=== PATIENT | female | born 1960 | race Two or more races ===

== ENCOUNTER 2023-07-02 17:07 | Emergency (ER) | payer OTHER, SELFPAY ==
--- NOTE | ~2023-07-02 | CT_ITS ---
CT head/brain wo IV con CLINICAL INFORMATION: Reason for Exam left facial numbness COMPARISON: No prior CT scan available for comparison. TECHNIQUE: Department standard protocol. This CT examination was performed using dose optimization techniques as appropriate, variously including the following: *Automated exposure control *Adjustment of mA and/or kV according to patient size (this includes techniques or standardized protocols for targeted exams where dose is matched to indication/reason for exam; i.e. extremities or head) *Use of iterative reconstruction technique DLP: 616 mGy-cm FINDINGS: CEREBRAL HEMISPHERES: There is no evidence of intra-axial or extra-axial mass, hemorrhage or acute infarct. BRAIN PARENCHYMA: Normal borrero-white matter differentiation. SUBDURAL SPACE: No bleed. BASAL GANGLIA AND PINEAL GLAND: Unremarkable VENTRICLES: Symmetric and normal in size. CEREBELLUM AND BRAINSTEM: No space-occupying mass, hemorrhage or acute infarct. CEREBELLOPONTINE ANGLES: No lesion found. ORBITS: No intraorbital mass. VESSELS: Unremarkable SKULL BASE: Unremarkable INCLUDED SINUSES AT SKULL BASE: Clear SKULL AND SKIN: No fracture or bone lesion found. CT/CT head/brain wo IV con IMPRESSION: No CT evidence of intracranial space-occupying mass, bleed or infarct. Normal CT scan does not rule out the possibility of hyperacute infarct in the first 12 hours. If patient symptoms persist may consider correlation with MRI, which is more sensitive for early acute infarct.
--- NOTE | ~2023-07-02 | XR_ITS ---
EXAMINATION: XR CHEST CLINICAL INFORMATION: Chest pain. COMPARISON: None available. TECHNIQUE: 2 views of the chest were obtained. FINDINGS: Normal heart size. Mild platelike opacities in the left lower lobe. No pleural effusion or pneumothorax. Calcific body adjacent to the greater tuberosity of the right humerus. No acute osseous findings. Mild thoracic spondylosis. Scattered atherosclerotic disease. XR/XR chest 2V IMPRESSION: 1. Subtle platelike opacities in the left lower lobe favoring to represent subsegmental atelectasis or scarring. 2. Calcific bodies adjacent to the greater tuberosity of the right humerus suggesting calcific tendinosis.
--- NOTE | 2023-07-02 17:14 | ECG_ITS ---
Test Reason : numbness Blood Pressure : / mmHG Vent. Rate : 090 BPM Atrial Rate : 090 BPM P-R Int : 132 ms QRS Dur : 084 ms QT Int : 362 ms P-R-T Axes : 045 006 028 degrees QTc Int : 442 ms Normal sinus rhythm Normal ECG No previous ECGs available Referred By: Delores Garcia Electronically Signed By:WALLACE BEY MD
[2023-07-02 17:19] VITALS: BP 142/75; PULSE 89; RESP 18; TEMP 36.2; O2SAT 94; BMI 34.7
--- NOTE | 2023-07-02 17:20 | ED.GENADULT ---
HPI - General Adult General Chief complaint: Chest Pain Stated complaint: CP, L sided body numbness Time Seen by Provider: 07/02/23 17:57 Source: patient, family, RN notes reviewed and slot shift manager Mode of arrival: ambulatory Limitations: language barrier History of Present Illness HPI narrative: 64-year-old female past medical history significant for diabetes, hypertension presents for evaluation of chest pain. Patient states that while she was heating up her food around 330 this afternoon, she felt ?chest pressure. She states that the left side of her body went ?numb. ? She states the symptoms lasted for about an hour and a half until 5:00 p.m.. She states she also felt dizzy. She denied any weakness or difficulty speaking Currently she is not experiencing any symptoms but feels ?weak. ? Related Data Allergies Allergy/AdvReac Type Severity Reaction Status Date / Time acetaminophen [From Percocet] Allergy Unknown Verified 07/02/23 17:31 aspirin [ASA] Allergy Unknown Verified 07/02/23 17:31 oxycodone [From Percocet] Allergy Unknown Verified 07/02/23 17:31 Penicillins [PCN] Allergy Unknown Verified 07/02/23 17:31 tramadol Allergy Unknown Verified 07/02/23 17:31 Review of Systems Constitutional: Constitutional: Denies chills and Denies fever(s) Eyes: Eyes: Denies blurry vision ENT: Reports dizziness and Denies sore throat Cardiovascular: Cardiovascular: Reports chest pain and Denies dyspnea Respiratory: Respiratory: Denies cough and Denies dyspnea Gastrointestinal: Gastrointestinal: Denies abdominal pain, Denies nausea and Denies vomiting Musculoskeletal: Musculoskeletal: Denies back pain and Reports tingling Integumentary/Breasts: Skin/Breast: Denies rash Neurologic: Reports dizziness, Reports tingling and Reports paresthesias Psychiatric: Psychiatric: Denies anxiety PMFSH Social History Social History Smoked in Last 30 Days: No Use of substances other than those prescribed or required for medical reasons: No Advance Directives: No Advance Directives Information Provided: Yes Physical Exam ED Vital Signs: Vital Signs - 24 hr 07/02/23 17:19 07/02/23 19:39 Temperature 97.1 F 98.3 F Pulse Rate 89 84 Respiratory Rate 18 14 Blood Pressure 142/75 H 129/73 Pulse Oximetry 94 92 Oxygen Delivery Method Room Air Room Air BMI result Body Mass Index 34.7 Const General: healthy appearing, comfortable, no acute distress, alert and awake Nutritional Appearance: well nourished Orientation/consciousness: patient oriented x3 HENMT Head: Yes normocephalic and Yes atraumatic Throat: Yes posterior oropharynx normal Eyes Eyelids: Yes eyelids normal Conjunctivae: conjunctivae normal Sclerae: sclerae normal Corneas: corneas normal Pupils: Equal, round and reactive pupils present EOM: EOMs intact bilaterally Neck Neck: Yes full ROM Resp Effort & Inspection: normal respiratory effort, able to speak in complete sentences, no audible wheezes and not labored Auscultation: clear to auscultation bilaterally Cardio Rate: regular rate Rhythm: regular rhythm GI Inspection: No distended Palpation (GI): Soft to palpation, not firm, nontender, no guarding and not rigid Auscultation: normoactive bowel sounds Skin General skin exam: no rashes or lesions noted and elasticity normal Neuro General: patient oriented x3 Cranial nerves: Yes CN's II-XII intact bilaterally, Yes Equal, round and reactive pupils present and Yes Bilaterally intact EOM present Cognition (Neuro): normal cognition Gait exam (Neuro): Normal gait present Motor exam (neuro): 5/5 motor strength present throughout, Pronator motor function not present and no tremor noted Extrem Other: Moving all extremities well without any obvious deformities NIH Stroke Scale Internal: Initial- Upon Arrival Time: 17:22 Level of Consciousness: Alert Level of Consciousness Questions: Answers both questions correctly Level of Consciousness Commands: Performs both tasks correctly Best Gaze: Normal Visual: No visual loss Facial Palsy: Normal Motor Arm (Right): No drift Motor Arm (Left): No drift Motor Leg (Right): No drift Motor Leg (Left): No drift Limb Ataxia: Absent Sensory: Normal Best Language: No aphasia Dysarthia: Normal Extinction and Inattention: No abnormality Score: 0 Course Course Course Narrative: This is a rapid medical exam: Additional HPI, ROS, PE not included below will be deferred to primary provider. Patient is a 63-year-old Urdu speaking female presenting to the emergency department with complaint of chest pain and L sided facial tingling which began at 3pm today. Denies headache. Reports blurred vision at onset of symptoms but denies any at this time. No focal deficits noted in triage, NIHSS 0. Plan: EKG, CXR, labs, CT head, patient brought directly inside ED Medical Decision Making Medical Decision Making [facility] Narrative: 63-year-old female presents for evaluation of vague symptoms of numbness, chest pain. Plan for EKG, labs to rule out cardiac etiology. Chest x-ray. And a very low suspicion for CVA and she had no neuro deficits. Never had any weakness or difficulty speaking was complaining of mostly numbness. She had an NIH stroke score of 0 Her symptoms have since resolved, this is very consistent with anxiety. Patient's vital signs are currently within normal limits. Her EKG does not appear ischemic. Will get a repeat troponin 4 hours after the onset of her symptoms to effectively rule out ACS. Differential Diagnosis Differential Diagnoses: The differential diagnosis associated with the presentation includes Anxiety Paresthesias Chest pain CVA less likely Orthostasis Admission/Observation Consideration of admission/observation: Escalation of care including admission/observation considered Patient's medical workup largely unremarkable, she without for ACS and I have a low suspicion for CVA. Lab Data [facility] Lab Attestation statement: I reviewed the patient's lab results. No leukocytosis. The patient has a mild anemia not significant to explain her symptoms. Electrolytes within normal limits, renal function normal limits. Troponin undetectable 07/02/23 17:54 07/02/23 17:54 Labs: Lab Results 07/02/23 Range/Units 17:54 WBC 8.6 (4.8-10.8) X10*3/uL RBC 4.49 (4.20-5.50) X10*6/uL Hgb 11.6 L (12.0-16.0) g/dl Hct 35.3 L (37.0-47.0) % MCV 78.6 L (80.0-98.0) fL MCH 25.8 L (27.0-33.0) pg MCHC 32.9 (31.0-35.0) g/dl RDW 17.8 H (11.0-16.0) % Plt Count 318 (160-400) X10*3/uL MPV 9.5 (9.4-12.3) fL Immature Gran % (Auto) 0.4 (0.0-0.4) % Neut % (Auto) 64.5 (45-73) % Lymph % (Auto) 25.7 (20-40) % Irion % (Auto) 7.5 (2-11) % Eos % (Auto) 1.1 (0-4) % Baso % (Auto) 0.8 (0-2) % Lymph # (Auto) 2.2 (1.2-4.9) X10*3/uL Irion # (Auto) 0.6 (0.1-1.2) X10*3/uL Eos # (Auto) 0.1 (0.0-0.4) X10*3/uL Baso # (Auto) 0.1 (0.0-0.2) X10*3/uL Abs Immat Gran (auto) 0.03 (0.00-0.03) X10*3/uL Absolute Neuts (auto) 5.5 (2.0-8.3) x10*3/uL Absolute Nucleated RBC 0.000 (0.0-0.012) X10*3/uL Nucleated RBC % (auto) 0.0 (0.0-0.2) /100WBC PT 11.2 (11.1-13.3) SEC INR 0.9 (0.9-1.1) Sodium 140 (135-145) mmol/L Potassium 4.3 (3.3-5.1) mmol/L Chloride 103 (96-108) mmol/L Carbon Dioxide 23 (22-29) mmol/L Anion Gap 18 (12-20) BUN 16 (9-16) mg/dL Creatinine 1.18 (0.5-1.4) mg/dL Estim Creat Clear Calc 44.6 Estimated GFR 46 Random Glucose 196 H (60-115) mg/dL Calcium 9.8 (8.4-10.2) mg/dL Total Bilirubin 0.8 (0.0-1.0) mg/dL AST 25 (5-31) U/L ALT 19 (0-31) U/L Alkaline Phosphatase 91 (39-117) U/L Troponin I High Sens < 2.7 (<3.5-17.0) ng/L Total Protein 7.7 (6.5-8.0) g/dL Albumin 4.4 (3.5-5.0) g/dL Independent Interpretation I performed an independent interpretation of an: EKG and CT Scan (No intracranial hemorrhage) Interpretation: Normal sinus rhythm with rate of 90 beats per minute. No ST changes Radiology Impression Discussion of test interpretation with radiology: I have reviewed the radiologist's reading. (No CT evidence of intracranial space-occupying mass bleed or infarct) Radiologist Impression: Chest x-ray shows a subtle platelike opacity in the left lower lobe favoring to represent atelectasis Discharge Plan Discharge Clinical Impression: Chest pain Patient Disposition: Still a Patient
[2023-07-02 18:00] LABS: MANUAL DIFF FLAG NO
[2023-07-02 18:04] LABS: Basophils Absolute Auto 0.1 X10*3/uL (0.0-0.2); Basophils Percent Auto 0.8 % (0-2); Eosinophils Absolute Auto 0.1 X10*3/uL (0.0-0.4); Eosinophils Percent Auto 1.1 % (0-4); Hematocrit 35.3 % (37.0-47.0); Hemoglobin 11.6 g/dl (12.0-16.0); Imm Gran Abs Auto 0.03 X10*3/uL (0.00-0.03); Imm Gran Pct Auto 0.4 % (0.0-0.4); Lymphocytes Absolute Auto 2.2 X10*3/uL (1.2-4.9); Lymphocytes Percent Auto 25.7 % (20-40); Mean Corpuscular HGB Conc 32.9 g/dl (31.0-35.0); Mean Corpuscular Hemoglobin 25.8 pg (27.0-33.0); Mean Corpuscular Volume 78.6 fL (80.0-98.0); Mean Platelet Volume 9.5 fL (9.4-12.3); Monocytes Absolute Auto 0.6 X10*3/uL (0.1-1.2); Monocytes Percent Auto 7.5 % (2-11); Neutrophils Absolute Auto 5.5 x10*3/uL (2.0-8.3); Neutrophils Percent Auto 64.5 % (45-73); Platelet Count 318 X10*3/uL (160-400); Red Blood Count 4.49 X10*6/uL (4.20-5.50); Red Cell Distribution Width 17.8 % (11.0-16.0); White Blood Count 8.6 X10*3/uL (4.8-10.8)
[2023-07-02 18:09] LABS: INTERNATIONAL NORM RATIO 0.9 (0.9-1.1); Prothrombin Time 11.2 SEC (11.1-13.3)
[2023-07-02 18:21] LABS: Alanine Aminotransferase 19 U/L (0-31); Albumin Level 4.4 g/dL (3.5-5.0); Alkaline Phosphatase 91 U/L (39-117); Anion Gap 18 (12-20); Aspartate Amino Transferase 25 U/L (5-31); Bilirubin Total 0.8 mg/dL (0.0-1.0); Blood Urea Nitrogen 16 mg/dL (9-16); Calcium 9.8 mg/dL (8.4-10.2); Carbon Dioxide 23 mmol/L (22-29); Chloride 103 mmol/L (96-108); Creatinine Clr Calc Pharmacy 44.6; Estimated Glomerular Filt Rate 46; Glucose Random 196 mg/dL (60-115); Potassium 4.3 mmol/L (3.3-5.1); Sodium 140 mmol/L (135-145); Total Protein 7.7 g/dL (6.5-8.0)
[2023-07-02 18:24] LABS: Troponin-I High Sensitivity < 2.7 ng/L (<3.5-17.0)
--- OUTSIDE RECORDS SUMMARY | 2023-07-02 18:47 | XMS_ITS | Continuity of Care Document ---
Author Name Unknown Organization [facility] ter Address [address] [place] [id number]- Care Team Providers Care Plate Take Out Worker Name Role Phone Vanessa Sharif DO Primary Care Physician [place] [facility] [place] - 04/06/[address] [address]- Discharge Disposition: A-D/C Walkout Attending Physician: Not on Staff, Attending MD Admitting Physician: Not on Staff, Admitting MD Referring Physician: Not on Staff, Referring MD Allergies, Adverse Reactions, Alerts Substance Reaction Severity Status penicillin itchy/rash/blisters Active aspirin rash/itchy Active Percocet 5/325 1 C/O: itching Active 1pt states still takes Immunizations Given and Recorded Vaccine Date Status Refusal Reason pneumococcal 23-valent vaccine 11/18/20 Given influenza virus vaccine, inactivated 11/18/20 Give n influenza virus vaccine, inactivated 06/10/19 Give n influenza virus vaccine, inactivated 12/07/17 Give n Influenza Virus Vaccine (oldterm) 05/12/16 Recorde d tetanus/diphtheria/pertussis, acel(Tdap) 04/29/16 Given Not Given Vaccine Date Status Refusal Reason influenza virus vaccine, inactivated 06/05/18 Not Given Patient Refuses Medications albuterol 0.083% inhalation solution 3 mL = 2.5 mg, Inhalation, Every 6 hours, PRN for wheezing, # 60 each, 0 Refills, Maintenance, 12/20/19 10:09:00 EDT, Solution, [facility] 168, cm, 11/19/19 13:14:00 EDT, Height, 89.2, kg, 06/19/19 1:03:00 EDT, Dry Weight Start Date: 12/20/19 Status: Ordered Alcohol Wipes See Instructions, # 100 each, Refills 11, Tot. Refills 11, Maintenance, dx dm type 2 - E11.65 INSULIN DEPENDENT, CJHECK BS 3 X PER DAY, 08/09/19 12:59:00 EST, Compound Start Date: 08/09/19 Status: Ordered amitriptyline 25 mg oral tablet 25 mg, 1, tablet, By Mouth, Daily at bedtime, # 30 tablet, Refills 0, Maintenance, 10/31/19 17:02:00 EST Start Date: 10/31/19 Status: Ordered atorvastatin 40 mg oral tablet 1 tablet = 40 mg, By Mouth, Daily, please label in tajik., # 30 tablet, 11 Refills, Maintenance, 06/23/20 20:27:00 EDT, Tablet, [facility], 168, cm, 11/19/19 13:14:00 EDT, Height, 89.2, kg, 06/19/19 1:03:00 EDT, Dry Weight Start Date: 06/23/20 Status: Ordered BATH BENCH BATH BENCH, See Instructions, # 1 each, Refills 0, Tot. Refills 0, Maintenance, DX FRIBROMYALGIA, CHRONIC BACK PAIN CHRONIC PELVIC PAIN IMPAIRED MOBILITY R10/2.M79.7, M54.5 Z74.09 DURATION LIFETIME HT 64 IN WT 175 LBS, 08/19/19 16:38:53 EST, Compound Start Date: 08/19/19 Status: Ordered CeraVe topical cream 1 application, Topically, 2 times a day, PRN for dry skin, Print instructions in tajik to affected area, # 454 Gm, 0 Refills, Maintenance, 11/25/20 14:30:00 EDT, Cream, [facility], Partial fill upon patient request if the prescripti... Start Date: 11/25/20 Status: Ordered Claritin 10 mg oral tablet 10 mg, By Mouth, Daily, # 90 tablet, Refills 0, Tot. Refills 0, Maintenance, 06/23/20 9:15:00 EDT, Route to Pharmacy Electronically, [facility], 168, cm, 11/19/19 13:14:00 EDT, Height, 89.2, kg, 06/19/19 1:03:00 EDT, Dry Weight Start Date: 06/23/20 Stop Date: 09/21/20 Status: Ordered clonazePAM 0.5 mg oral tablet 1 tablet = 0.5 mg, By Mouth, 2 times a day, PRN Anxiety, Dr. Dale; Glendy Ospina NP, 0 Refills, Maintenance, 01/28/16 14:10:50 EDT Start Date: 01/28/16 Status: Ordered Diagnosis : Ambulatory dysfunction Rolling walker Diagnosis : Ambulatory dysfunction Rolling walker, See Instructions, # 1 each, Refills 0, Tot. Refills 0, Maintenance, USe Walker for ambulation, 12/04/20 14:42:00 EDT, Supply Start Date: 12/04/20 Status: Ordered diclofenac 1% topical gel 1 application, Topically, 4 times a day, PRN for pain, not to exceed 8 grams/day/single joint of upper extremities, # 100 Gm, 2 Refills, Maintenance, 11/13/20 9:14:00 EST, Gel, [facility] [place] label, 168, cm, 11/13/20 8:37:00 EST,... Start Date: 11/13/20 Status: Ordered Freestyle Lancets See Instructions, # 100 each, Refills 11, Tot. Refills 11, Maintenance, use as directed for Type 2 Diabetes Mellitus Test 3 times/day Instructions in [place], 11/10/20 9:37:00 EST, Compound, 168, cm,11/19/19 13:14:00 EDT, Height, 89.2, kg, 06/19/19... Start Date: 11/10/20 Stop Date: 11/05/21 Status: Ordered Freestyle Lite Test Strips See Instructions, # 100 each, Refills 6, Tot. Refills 6, Maintenance, use as directed for Type 2 Diabetes Mellitus Test 3 times/day Instructions in [place], 11/10/20 9:41:00 EST, Duplicate rx-Original rx sent 06/23/20. Remaining refills sent., [place]... Start Date: 11/10/20 Stop Date: 06/08/21 Status: Ordered gabapentin 600 mg oral tablet 1 tablet = 600 mg, By Mouth, 3 times a day, [place] label, # 90 tablet, 5 Refills, Maintenance, 05/12/21 13:56:00 EDT, Tablet, [facility] 168, cm, 11/19/19 13:14:00 EDT, Height, 89.2, kg, 06/19/19 1:03:00 EDT, Dry Weight Start Date: 05/12/21 Stop Date: 11/08/21 Status: Ordered Lac-Hydrin 12% lotion 1 application, Topically, 2 times a day, PRN Dry Skin, Apply and rub in well, # 400 Gm, 2 Refills, Maintenance, 11/13/20 9:08:00 EST, Lotion, [facility], [place] label, 1 application Topically 2 times a day,PRN:Dry Skin,Instr:Apply and... Start Date: 11/13/20 Status: Ordered levothyroxine 125 mcg (0.125 mg) oral tablet 1 tablet = 125 mcg, By Mouth, Daily, Maintenance, 12/02/20 15:28:00 EDT, Tablet, Partial fill upon patient request if the prescription is for a schedule II opioid drug. Start Date: 12/02/20 Status: Ordered lidocaine 5% topical ointment 1 application, Topically, 3 times a day, PRN Pain , Moderate, Print instructions in tajik wash hands thoroughly after application, # 50 Gm, 1 Refills, Maintenance, 11/25/20 14:45:00 EDT, Ointment, [facility], Partial fill upon patie... Start Date: 11/25/20 Status: Ordered lisinopril 10 mg oral tablet 10 mg, 1, tablet, By Mouth, Daily, # 30 tablet, Refills 0, Tot. Refills 0, Maintenance, 12/04/20 14:27:00 EDT, Route to Pharmacy Electronically, [facility], Partial fill upon patient request if the prescription is for a schedule II opioi... Start Date: 12/04/20 Status: Ordered metFORMIN 500 mg oral tablet, extended release See Instructions, Take 1000 mg (2 tabs) in the morning and 500 mg (1 tab) in the evening; with food; [place] label, # 90 tablet, 5 Refills, Maintenance, 11/06/20 13:47:00 EST, [facility] 168, cm, 11/19/19 13:14:00 EDT, Height, 89.2, k... Start Date: 11/06/20 Status: Ordered montelukast 10 mg oral tablet 10 mg, 1, tablet, By Mouth, Daily, # 90 tablet, Refills 5, Tot. Refills 5, Maintenance, 12/20/19 10:09:00 EDT, Route to Pharmacy Electronically, [facility] 168, cm, 11/19/19 13:14:00EDT, Height, 89.2, kg, 06/19/19 1:03:00 EDT, Dry We... Start Date: 12/20/19 Stop Date: 06/17/20 Status: Ordered omeprazole 40 mg oral enteric coated capsule 1 capsule = 40 mg, By Mouth, 2 times a day, Maintenance, 12/02/20 15:36:00 EDT, EC Capsule, Partialfill upon patient request if the prescription is for a schedule II opioid drug. Start Date: 12/02/20 Status: Ordered ProAir HFA 90 mcg/inh inhalation aerosol with adapter 1, puffs, Inhalation, Every 4 hours, PRN, # 8.5 Gm, Refills 5, Tot. Refills 5, Maintenance, 07/31/20 15:09:00 EST, Aerosol, Route to Pharmacy Electronically, [id number], [facility], 168, cm, 11/19/19 13:14:00... Start Date: 07/31/20 Status: Ordered QUEtiapine 50 mg oral tablet 1 tablet = 50 mg, By Mouth, 2 times a day, PRN Anxiety, Delusions, Prescribed by Glendy Ospina NP, # 60 tablet, 0 Refills, Maintenance, 10/31/19 17:10:00 EST, Tablet Start Date: 10/31/19 Status: Ordered Slow Fe (as elemental iron) 45 mg oral tablet, extended release 1 tablet = 45 mg, By Mouth, Daily, # 30 tablet, 2 Refills, Maintenance, 11/13/20 9:08:00 EST, ER Tablet, [facility], Partial fill upon patient request if the prescription is for a schedule II opioid drug., 168, cm, 11/13/20 8:37:00 EST... Start Date: 11/13/20 Status: Ordered SUMAtriptan 50 mg oral tablet 1 tablet = 50 mg, By Mouth, Daily, PRN for migraine headache, May repeat dose after 2 hours up to amaximum of 2. Limit use to <10 days per month to avoid medication overuse headache., # 9 tablet,0 Refills, Maintenance, 11/06/20 14:08:00 EST, Tablet,... Start Date: 11/06/20 Status: Ordered Tylenol 8 Hour 650 mg oral tablet, extended release 1 tablet = 650 mg, By Mouth, Every 8 hours, PRN Pain , Mild, Not to exceed 2000 mg/day., # 100 tablet, 2 Refills, Maintenance, 11/06/20 14:03:00 EST, ER Tablet, [facility] [place] label, 168, cm, 11/19/19 13:14:00 EDT, Height, 89.2, k... Start Date: 11/06/20 Status: Ordered Vitamin D3 1000 intl units oral capsule 1 capsule = 1,000 International_Units, By Mouth, Daily, [place] label please; with food, # 30 capsule, 5 Refills, Maintenance, 11/06/20 11:55:00 EST, Capsule, [facility]., 168, cm, 11/19/19 13:14:00 EDT, Height, 89.2, kg, 06/19/19 1:03:... Start Date: 11/06/20 Stop Date: 05/05/21 Status: Ordered Problem List Condition Effective Dates Status Health Status Inform ant Chronic pelvic pain(Confirmed) Active Chronic renal insufficiency(Confirmed) Active Diabetes(Confirmed) Active Fibromyalgia(Confirmed) Active GERD (gastroesophageal reflu x disease)(Confirmed) Active Hypertension(Confirmed) Active Hypertriglyceridemia; mild(Confirmed) Active Hypothyroid(Confirmed) Active Major depression, chronic(Confirmed) Active KIRAN (obstructive sleep apnea ) severe(Confirmed) 2017 Active Palpitations(Confirmed) Active *BHN/BHCP/KRISTINE-Barbie Denney-[phone]/Health nursing home, active care coordination(Confirmed) Active Seizure-like activity(Confirmed) Active Steatosis of liver(Confirmed) Active Vasovagal syncope(Confirmed) Active Vital Signs Most recent to oldest [Reference Range]: 1 2 3 Oxygen Saturation [94-100 %] 99 % (04/05/21 7:09 PM) 99 % (04/05/21 1:29 PM) 99 % (04/05/21 1:04 PM) Pulse Rate [55-90 bpm] 83 bpm (04/05/21 7:09 PM) 80 bpm (04/05/21 1:29 PM) 96 bpm *H* (04/05/21 1:04 PM) Blood Pressure [90-138/55-84 mm Hg] 134/90mm Hg (04/05/21 7:09 PM) 131/74mm Hg (04/05/21 1:29 PM) Respiratory Rate [16-30 br/min] 16 br/min (04/05/21 1:29 PM) Temperature [96.8-100.4 DegF] 98.0 DegF (04/05/21 7:09 PM) 99.0 DegF (04/05/21 1:29 PM) Mode of Delivery (Oxygen) Room air (04/05/21 1:29 PM) Blood pressure sites Arm, left (04/05/21 7:09 PM) Arm, left (04/05/21 1:29 PM) Temperature Route Oral (04/05/21 7:09 PM) Oral (04/05/21 1:29 PM) Social History Social History Type Response Smoking Status Never smoker entered on: 01/14/16 Sex Female
--- OUTSIDE RECORDS SUMMARY | 2023-07-02 18:47 | XMS_ITS | Continuity of Care Document ---
Author Name Unknown Organization [facility] Address [address] [place] [address]- Care Team Providers Care Ice Crusher Name Role Phone Vanessa Sharif DO Primary Care Physician Encounter [facility] Date(s): 12/24/20 - 01/23/21 [facility] [address], [place] [address] Attending Physician: Silvino Vance Admitting Physician: AdmtrSilvino Referring Physician: Admtr, ArFide Allergies, Adverse Reactions, Alerts Substance Reaction Severity [...] 0 Refills, Maintenance, 12/20/19 10:09:00 EDT, Solution, [facility] 168, cm, 11/19/19 13:14:00 EDT, Height, 89.2, [...] mg, By Mouth, Daily, please label in faroese., # 30 tablet, 11 Refills, Maintenance, 06/23/20 20:27:00 EDT, Tablet, [facility], 168, cm, 11/19/19 13:14:00 EDT, Height, [...] PRN for dry skin, Print instructions in faroese to affected area, # 454 Gm, 0 Refills, Maintenance, 11/25/20 14:30:00 EDT, Cream, [facility], Partial fill upon patient request if the prescripti... Start Date: 11/25/20 Status: Ordered Claritin 10 mg oral tablet 10 mg, By Mouth, Daily, # 90 tablet, Refills 0, Tot. Refills 0, Maintenance, 06/23/20 9:15:00 EDT, Route to Pharmacy Electronically, [facility], 168, cm, 11/19/19 13:14:00 EDT, Height, [...] 2 Refills, Maintenance, 11/13/20 9:14:00 EST, Gel, [facility] [place]ankan label, 168, cm, 11/13/20 8:37:00 EST,... Start Date: 11/13/20 Status: Ordered Freestyle Lancets See Instructions, # 100 each, Refills 11, Tot. Refills 11, Maintenance, use as directed for Type 2 Diabetes Mellitus Test 3 times/day Instructions in Sri Lankan, 11/10/20 9:37:00 EST, Compound, 168, cm,11/19/19 13:14:00 EDT, Height, 89.2, kg, 06/19/19... Start Date: 11/10/20 Stop Date: 11/05/21 Status: Ordered Freestyle Lite Test Strips See Instructions, # 100 each, Refills 6, Tot. Refills 6, Maintenance, use as directed for Type 2 Diabetes Mellitus Test 3 times/day Instructions in [place]ankan, 11/10/20 9:41:00 EST, Duplicate rx-Original rx sent 06/23/20. Remaining refills sent., [place]... Start Date: 11/10/20 Stop Date: 06/08/21 Status: Ordered gabapentin 600 mg oral tablet 1 tablet = 600 mg, By Mouth, 3 times a day, [place]ankan label, # 90 tablet, 5 Refills, Maintenance, 05/12/21 13:56:00 EDT, Tablet, [facility], 168, cm, 11/19/19 13:14:00 EDT, Height, 89.2, kg, 06/19/19 1:03:00 EDT, Dry Weight Start Date: 05/12/21 Stop Date: 11/08/21 Status: Ordered Lac-Hydrin 12% lotion 1 application, Topically, 2 times a day, PRN Dry Skin, Apply and rub in well, # 400 Gm, 2 Refills, Maintenance, 11/13/20 9:08:00 EST, Lotion, [facility], [place]an label, 1 application Topically 2 times a [...] PRN Pain , Moderate, Print instructions in faroese wash hands thoroughly after application, # 50 Gm, 1 Refills, Maintenance, 11/25/20 14:45:00 EDT, Ointment, [facility], Partial fill upon patie... Start Date: 11/25/20 Status: Ordered lisinopril 10 mg oral tablet 10 mg, 1, tablet, By Mouth, Daily, # 30 tablet, Refills 0, Tot. Refills 0, Maintenance, 12/04/20 14:27:00 EDT, Route to Pharmacy Electronically, [facility], Partial fill upon patient request if the prescription is for a schedule II opioi... Start Date: 12/04/20 Status: Ordered metFORMIN 500 mg oral tablet, extended release See Instructions, Take 1000 mg (2 tabs) in the morning and 500 mg (1 tab) in the evening; with food; [place]ankan label, # 90 tablet, 5 Refills, Maintenance, 11/06/20 13:47:00 EST, [facility]., 168, cm, 11/19/19 13:14:00 EDT, Height, 89.2, k... Start Date: 11/06/20 Status: Ordered montelukast 10 mg oral tablet 10 mg, 1, tablet, By Mouth, Daily, # 90 tablet, Refills 5, Tot. Refills 5, Maintenance, 12/20/19 10:09:00 EDT, Route to Pharmacy Electronically, [facility]., 168, cm, 11/19/19 13:14:00EDT, Height, 89.2, [...] 15:09:00 EST, Aerosol, Route to Pharmacy Electronically, [id number], [facility], 168, cm, 11/19/19 13:14:00... Start Date: [...] Refills, Maintenance, 11/13/20 9:08:00 EST, ER Tablet, [facility], Partial fill upon patient request if [...] Refills, Maintenance, 11/06/20 14:03:00 EST, ER Tablet, [facility]., [place]ankan label, 168, cm, 11/19/19 13:14:00 EDT, Height, 89.2, k... Start Date: 11/06/20 Status: Ordered Vitamin D3 1000 intl units oral capsule 1 capsule = 1,000 International_Units, By Mouth, Daily, [place]ankan label please; with food, # 30 capsule, 5 Refills, Maintenance, 11/06/20 11:55:00 EST, Capsule, [facility]., 168, cm, 11/19/19 13:14:00 EDT, Height, [...] apnea ) severe(Confirmed) 2017 Active Palpitations(Confirmed) Active *BHN/BHCP/Lisa Denney-[phone]/Health snf, active care coordination(Confirmed) Active Seizure-like activity(Confirmed) Active Steatosis of liver(Confirmed) Active Vasovagal syncope(Confirmed) Active Social History Social History Type Response Smoking Status Never smoker entered on: 01/14/16 Sex Female
--- OUTSIDE RECORDS SUMMARY | 2023-07-02 18:47 | XMS_ITS | Continuity of Care Document ---
Author Name Unknown Organization [facility] Address [address] [place] [id number]- Care Team Providers Care Supervisor Firearms Name Role Phone Vanessa Sharif DO Primary Care Physician Encounter [facility] [facility] Date(s): 11/13/20 - 12/18/20 [facility] [address] [place] [id number]- Attending Physician: Deepa SORIA, Katelin Admitting Physician: Deepa SORIA, Katelin Referring Physician: Vanessa Sharif DO Allergies, Adverse Reactions, Alerts Substance Reaction Severity [...] 0 Refills, Maintenance, 12/20/19 10:09:00 EDT, Solution, [facility]., 168, cm, 11/19/19 13:14:00 EDT, Height, [...] mg, By Mouth, Daily, please label in italian., # 30 tablet, 11 Refills, Maintenance, 06/23/20 20:27:00 EDT, Tablet, [facility], 168, cm, 11/19/19 13:14:00 EDT, Height, [...] PRN for dry skin, Print instructions in italian to affected area, # 454 Gm, 0 Refills, Maintenance, 11/25/20 14:30:00 EDT, Cream, [facility], Partial fill upon patient request if the prescripti... Start Date: 11/25/20 Status: Ordered Claritin 10 mg oral tablet 10 mg, By Mouth, Daily, # 90 tablet, Refills 0, Tot. Refills 0, Maintenance, 06/23/20 9:15:00 EDT, Route to Pharmacy Electronically, [facility], 168, cm, 11/19/19 13:14:00 EDT, Height, 89.2, kg, 06/19/19 1:03:00 EDT, Dry Weight Start Date: 06/23/20 Stop Date: 09/21/20 Status: Ordered clonazePAM 0.5 mg oral tablet 1 tablet = 0.5 mg, By Mouth, 2 times a day, PRN Anxiety, Dr. Dale; Glendy Ospina, PRISCILA, 0 Refills, Maintenance, 01/28/16 14:10:50 EDT Start [...] 2 Refills, Maintenance, 11/13/20 9:14:00 EST, Gel, [facility] Brazilian label, 168, cm, 11/13/20 8:37:00 EST,... Start Date: 11/13/20 Status: Ordered Freestyle Lancets See Instructions, # 100 each, Refills 11, Tot. Refills 11, Maintenance, use as directed for Type 2 Diabetes Mellitus Test 3 times/day Instructions in Brazilian, 11/10/20 9:37:00 EST, Compound, 168, cm,11/19/19 13:14:00 EDT, Height, 89.2, kg, 06/19/19... Start Date: 11/10/20 Stop Date: 11/05/21 Status: Ordered Freestyle Lite Test Strips See Instructions, # 100 each, Refills 6, Tot. Refills 6, Maintenance, use as directed for Type 2 Diabetes Mellitus Test 3 times/day Instructions in Brazilian, 11/10/20 9:41:00 EST, Duplicate rx-Original rx sent 06/23/20. Remaining refills sent., [facility]... Start Date: 11/10/20 Stop Date: 06/08/21 Status: Ordered gabapentin 600 mg oral tablet 1 tablet = 600 mg, By Mouth, 3 times a day, Brazilian label, # 90 tablet, 5 Refills, Maintenance, 05/12/21 13:56:00 EDT, Tablet, [facility], 168, cm, 11/19/19 13:14:00 EDT, Height, 89.2, kg, 06/19/19 1:03:00 EDT, Dry Weight Start Date: 05/12/21 Stop Date: 11/08/21 Status: Ordered Lac-Hydrin 12% lotion 1 application, Topically, 2 times a day, PRN Dry Skin, Apply and rub in well, # 400 Gm, 2 Refills, Maintenance, 11/13/20 9:08:00 EST, Lotion, [facility], Brazilian label, 1 application Topically 2 times a [...] PRN Pain , Moderate, Print instructions in italian wash hands thoroughly after application, # 50 Gm, 1 Refills, Maintenance, 11/25/20 14:45:00 EDT, Ointment, [facility], Partial fill upon patie... Start Date: 11/25/20 Status: Ordered lisinopril 10 mg oral tablet 10 mg, 1, tablet, By Mouth, Daily, # 30 tablet, Refills 0, Tot. Refills 0, Maintenance, 12/04/20 14:27:00 EDT, Route to Pharmacy Electronically, [facility], Partial fill upon patient request if the prescription is for a schedule II opioi... Start Date: 12/04/20 Status: Ordered metFORMIN 500 mg oral tablet, extended release See Instructions, Take 1000 mg (2 tabs) in the morning and 500 mg (1 tab) in the evening; with food; Brazilian label, # 90 tablet, 5 Refills, Maintenance, 11/06/20 13:47:00 EST, [facility]., 168, cm, 11/19/19 13:14:00 EDT, Height, 89.2, k... Start Date: 11/06/20 Status: Ordered montelukast 10 mg oral tablet 10 mg, 1, tablet, By Mouth, Daily, # 90 tablet, Refills 5, Tot. Refills 5, Maintenance, 12/20/19 10:09:00 EDT, Route to Pharmacy Electronically, [facility], 168, cm, 11/19/19 13:14:00EDT, Height, 89.2, kg, [...] 15:09:00 EST, Aerosol, Route to Pharmacy Electronically, [id number], [facility], 168, cm, 11/19/19 13:14:00... Start Date: [...] Refills, Maintenance, 11/13/20 9:08:00 EST, ER Tablet, [facility], Partial fill upon patient request if [...] EST, Tablet,... Start Date: 11/06/20 Status: Ordered triamcinolone 0.1% topical ointment 1 application, Topically, 2 times a day, for 14 days, Apply thin film to affected skin, # 60 Gm, 1 Refills, Acute 12/23/20 14:46:00 EDT, 11/25/20 14:46:00 EDT, Cream, [facility], Partial fill upon patient request if the prescription is... Start Date: 11/25/20 Stop Date: 12/23/20 Status: Ordered Tylenol 8 Hour 650 mg oral tablet, extended release 1 tablet = 650 mg, By Mouth, Every 8 hours, PRN Pain , Mild, Not to exceed 2000 mg/day., # 100 tablet, 2 Refills, Maintenance, 11/06/20 14:03:00 EST, ER Tablet, [facility]., Brazilian label, 168, cm, 11/19/19 13:14:00 EDT, Height, 89.2, k... Start Date: 11/06/20 Status: Ordered Vitamin D3 1000 intl units oral capsule 1 capsule = 1,000 International_Units, By Mouth, Daily, Brazilian label please; with food, # 30 capsule, 5 Refills, Maintenance, 11/06/20 11:55:00 EST, Capsule, [facility]., 168, cm, 11/19/19 13:14:00 EDT, Height, [...] apnea ) severe(Confirmed) 2017 Active Palpitations(Confirmed) Active *BHN/BHKRISTINE/KRISTINE-Barbie Tree Xthus-[phone]/Health alf, active care coordination(Confirmed) Active Seizure-like activity(Confirmed) Active Steatosis of liver(Confirmed) Active Vasovagal syncope(Confirmed) Active Social History Social History Type Response Smoking Status Never smoker entered on: 01/14/16 Sex Female
--- OUTSIDE RECORDS SUMMARY | 2023-07-02 18:47 | XMS_ITS | Continuity of Care Document ---
Author Name Unknown Organization [facility] Address [address] [place] [phone]- Care Team Providers Care Electronic Coils Supervisor Name Role Phone Vanessa Sharif DO Primary Care Physician Encounter [facility] [place] [place] Date(s): 11/18/20 - 12/18/20 [facility] [address] [place] [id number] Attending Physician: Silvino Vance Admitting Physician: [...] 0 Refills, Maintenance, 12/20/19 10:09:00 EDT, Solution, [facility] 168, cm, 11/19/19 13:14:00 EDT, [...] mg, By Mouth, Daily, please label in mexican., # 30 tablet, 11 Refills, Maintenance, 06/23/20 20:27:00 EDT, Tablet, [facility], 168, cm, 11/19/19 13:14:00 EDT, Height, [...] PRN for dry skin, Print instructions in mexican to affected area, # 454 Gm, 0 Refills, Maintenance, 11/25/20 14:30:00 EDT, Cream, [facility], Partial fill upon patient request if the prescripti... Start Date: 11/25/20 Status: Ordered Claritin 10 mg oral tablet 10 mg, By Mouth, Daily, # 90 tablet, Refills 0, Tot. Refills 0, Maintenance, 06/23/20 9:15:00 EDT, Route to Pharmacy Electronically, [facility], 168, cm, 11/19/19 13:14:00 EDT, Height, [...] 2 Refills, Maintenance, 11/13/20 9:14:00 EST, Gel, [facility] [place]ian label, 168, cm, 11/13/20 8:37:00 EST,... Start Date: 11/13/20 Status: Ordered Freestyle Lancets See Instructions, # 100 each, Refills 11, Tot. Refills 11, Maintenance, use as directed for Type 2 Diabetes Mellitus Test 3 times/day Instructions in Algerian, 11/10/20 9:37:00 EST, Compound, 168, cm,11/19/19 13:14:00 EDT, Height, 89.2, kg, 06/19/19... Start Date: 11/10/20 Stop Date: 11/05/21 Status: Ordered Freestyle Lite Test Strips See Instructions, # 100 each, Refills 6, Tot. Refills 6, Maintenance, use as directed for Type 2 Diabetes Mellitus Test 3 times/day Instructions in Algerian, 11/10/20 9:41:00 EST, Duplicate rx-Original rx sent 06/23/20. Remaining refills sent., [facility]... Start Date: 11/10/20 Stop Date: 06/08/21 Status: Ordered gabapentin 600 mg oral tablet 1 tablet = 600 mg, By Mouth, 3 times a day, Algerian label, # 90 tablet, 5 Refills, Maintenance, 05/12/21 13:56:00 EDT, Tablet, [facility]., 168, cm, 11/19/19 13:14:00 EDT, Height, 89.2, kg, 06/19/19 1:03:00 EDT, Dry Weight Start Date: 05/12/21 Stop Date: 11/08/21 Status: Ordered Lac-Hydrin 12% lotion 1 application, Topically, 2 times a day, PRN Dry Skin, Apply and rub in well, # 400 Gm, 2 Refills, Maintenance, 11/13/20 9:08:00 EST, Lotion, [facility], Algerian label, 1 application Topically 2 times a [...] PRN Pain , Moderate, Print instructions in mexican wash hands thoroughly after application, # 50 Gm, 1 Refills, Maintenance, 11/25/20 14:45:00 EDT, Ointment, [facility], Partial fill upon patie... Start Date: 11/25/20 Status: Ordered lisinopril 10 mg oral tablet 10 mg, 1, tablet, By Mouth, Daily, # 30 tablet, Refills 0, Tot. Refills 0, Maintenance, 12/04/20 14:27:00 EDT, Route to Pharmacy Electronically, [facility], Partial fill upon patient request if the prescription is for a schedule II opioi... Start Date: 12/04/20 Status: Ordered metFORMIN 500 mg oral tablet, extended release See Instructions, Take 1000 mg (2 tabs) in the morning and 500 mg (1 tab) in the evening; with food; Algerian label, # 90 tablet, 5 Refills, Maintenance, 11/06/20 13:47:00 EST, [facility]., 168, cm, 11/19/19 13:14:00 EDT, Height, 89.2, k... Start Date: 11/06/20 Status: Ordered montelukast 10 mg oral tablet 10 mg, 1, tablet, By Mouth, Daily, # 90 tablet, Refills 5, Tot. Refills 5, Maintenance, 12/20/19 10:09:00 EDT, Route to Pharmacy Electronically, [facility], 168, cm, 11/19/19 13:14:00EDT, Height, 89.2, [...] 15:09:00 EST, Aerosol, Route to Pharmacy Electronically, [id number], [facility], 168, cm, 11/19/19 13:14:00... Start Date: [...] Refills, Maintenance, 11/13/20 9:08:00 EST, ER Tablet, [facility], Partial fill upon patient request if [...] 12/23/20 14:46:00 EDT, 11/25/20 14:46:00 EDT, Cream, [facility], Partial fill upon patient request if the prescription is... Start Date: 11/25/20 Stop Date: 12/23/20 Status: Ordered Tylenol 8 Hour 650 mg oral tablet, extended release 1 tablet = 650 mg, By Mouth, Every 8 hours, PRN Pain , Mild, Not to exceed 2000 mg/day., # 100 tablet, 2 Refills, Maintenance, 11/06/20 14:03:00 EST, ER Tablet, [facility], Algerian label, 168, cm, 11/19/19 13:14:00 EDT, Height, 89.2, k... Start Date: 11/06/20 Status: Ordered Vitamin D3 1000 intl units oral capsule 1 capsule = 1,000 International_Units, By Mouth, Daily, Algerian label please; with food, # 30 capsule, 5 Refills, Maintenance, 11/06/20 11:55:00 EST, Capsule, [facility]., 168, cm, 11/19/19 13:14:00 EDT, Height, [...] severe(Confirmed) 2017 Active Palpitations(Confirmed) Active *BHN/BHKRISTINE/KRISTINE-Barbie Tree Nywev-[phone]/Health intermediate, active care coordination(Confirmed) Active Seizure-like activity(Confirmed) Active Steatosis of liver(Confirmed) Active Vasovagal syncope(Confirmed) Active Social History Social History Type Response Smoking Status Never smoker entered on: 01/14/16 Sex Female
--- OUTSIDE RECORDS SUMMARY | 2023-07-02 18:47 | XMS_ITS | Continuity of Care Document ---
Author Name Unknown Organization [facility] Address [address] [place] [phone]- Care Team Providers Care Audiovisual Aids Technician Name Role Phone Vanessa Sharif DO Primary Care Physician En[place] [facility] [place] 01/07/20 - 01/14/20 [facility] [address] [place] [phone]- [facility] Attending Physician: Alyce Cruz MD Allergies, Adverse Reactions, Alerts Substance Reaction Severity Status penicillin itchy/rash/blisters Active aspirin rash/itchy Active Percocet 5/325 1 C/O: itching Active 1pt states still takes Immunizations Given and Recorded Vaccine Date Status Refusal Reason influenza virus vaccine, inactivated 06/10/19 Give n influenza virus vaccine, inactivated 12/07/17 Give n Influenza Virus Vaccine (oldterm) 05/12/16 Recorde d tetanus/diphtheria/pertussis, acel(Tdap) 04/29/16 Given Not Given Vaccine Date Status Refusal Reason influenza virus vaccine, inactivated 06/05/18 Not Given Patient Refuses Medications acetaminophen 500 mg oral tablet See Instructions, ULYSSES 2 TABLETAS POR LA BOCA CADA 6 HORAS CUANDO SEA NECESARIO PARA EL DOLOR. (LIMITE A 4000MG DE TYLENOL/APAP/ACETAMINOPHEN), # 100 tablet, 0 Refills, Physician Stop 12/24/20 11:35:00 EDT, 12/25/19 11:34:00 EDT, [facility] Start Date: 12/25/19 Stop Date: 12/24/20 Status: Ordered albuterol 0.083% inhalation solution 3 mL = 2.5 mg, Inhalation, Every 6 hours, PRN for wheezing, # 60 each, 0 Refills, Maintenance, 12/20/19 10:09:00 EDT, [facility], cm, 11/19/19 13:14:00 EDT, [...] mg, By Mouth, Daily, please label in danish. discontinue the atorvastatin, # 30 tablet, 5 Refills, Maintenance, 12/18/19 16:05:00 EDT, Tablet, [facility] 168, cm, 11/19/19 13:14:00 EDT, Height, 89.2, kg, 06/19/19 1:03:... Start Date: 12/18/19 Status: Ordered BATH BENCH BATH BENCH, See Instructions, # 1 each, Refills 0, Tot. Refills 0, Maintenance, DX FRIBROMYALGIA, CHRONIC BACK PAIN CHRONIC PELVIC PAIN IMPAIRED MOBILITY R10/2.M79.7, M54.5 Z74.09 DURATION LIFETIME HT 64 IN WT 175 LBS, 08/19/19 16:38:53 EST, Compound Start Date: 08/19/19 Status: Ordered betamethasone topical dipropionate 0.05% cream See Instructions, APLICAR A LA PIEL AL AREA AFECTLOMBARD DOS VECES AL MANUEL, # 50 Gm, 0 Refills, Acute, [facility], 25, APLICAR A LA PIEL AL AREA AFECTADA DOS VECES AL MANUEL, 168, cm, 09/24/19 13:53:00 EST, Height, 89.2, kg, 06/19/19 1:03:00 EDT, . Start Date: 10/23/19 Status: Ordered Claritin 10 mg oral tablet 10 mg, By Mouth, Daily, # 90 tablet, Refills 0, Tot. Refills 0, Maintenance, 12/18/19 14:20:00 EDT,Route to Pharmacy Electronically, [facility] 168, cm, 11/19/19 13:14:00 EDT, Height, 89.2, kg, 06/19/19 1:03:00 EDT, Dry Weight Start Date: 12/18/19 Stop Date: 03/17/20 Status: Ordered clonazePAM 0.5 mg oral tablet 1 tablet = 0.5 mg, By Mouth, 2 times a day, PRN Anxiety, Dr. Dale; Glendy Ospina NP, 0 Refills, Maintenance, 01/28/16 14:10:50 EDT Start Date: 01/28/16 Status: Ordered clotrimazole 1% topical cream See Instructions, APLICAR A LA PIEL AL AREA AFECTADA (DE LA ERUPCION EN EL PIE DERECHO) DOS VECES AL MANUEL CUANDO SEA NECESARIO, # 30 Gm, 0 Refills, Acute, [facility], 14, APLICAR A LA PIEL AL AREA AFECTADA (DE LA ERUPCION EN EL PIE DERECHO) D... Start Date: 10/23/19 Status: Ordered diclofenac 1% topical gel 1 application, Topically, 4 times a day, PRN for pain, not to exceed 8 grams/day/single joint of upper extremities, # 100 Gm, 0 Refills, Maintenance, 12/18/19 18:21:00 EDT, Gel, [facility] 168, cm, 11/19/19 13:14:00 EDT, Height, 89.2,... Start Date: 12/18/19 Status: Ordered Flovent HFA 220 mcg/inh inhalation aerosol 1 puffs, Inhalation, 2 times a day, # 12 Gm, 3 Refills, Maintenance, 12/20/19 13:42:00 EDT, Aerosol, [facility] 168, cm, 11/19/19 13:14:00 EDT, Height, 89.2, kg, 06/19/19 1:03:00 EDT, Dry Weight Start Date: 12/20/19 Status: Ordered Freestyle Lancets See Instructions, # 100 each, Refills 11, Tot. Refills 11, Maintenance, use as directed for Type 2 Diabetes Mellitus Test 3 times/day Instructions in Icelandic, 08/09/19 10:57:52 EST, Compound Start Date: 08/09/19 Stop Date: 08/03/20 Status: Ordered Freestyle Lite Test Strips See Instructions, # 100 each, Refills 11, Tot. Refills 11, Maintenance, use as directed for Type 2 Diabetes Mellitus Test 3 times/day Instructions in Icelandic, 08/09/19 10:57:52 EST, Compound Start Date: 08/09/19 Stop Date: 08/03/20 Status: Ordered gabapentin 600 mg oral tablet 1 tablet = 600 mg, By Mouth, 3 times a day, Icelandic label, # 270 tablet, 5 Refills, Maintenance, 11/19/19 13:56:00 EDT, Tablet, [facility] 168, cm, 11/19/19 13:14:00 EDT, Height, 89.2, kg, 06/19/19 1:03:00 EDT, Dry Weight Start Date: 11/19/19 Stop Date: 05/12/21 Status: Ordered levothyroxine 125 mcg (0.125 mg) oral tablet 1 tablet = 125 mcg, By Mouth, Daily, Icelandic label, # 30 tablet, 5 Refills, Maintenance, 09/10/19 15:16:00 EST, Tablet, [facility] 168, cm, 09/10/19 13:44:00 EST, Height, 89.2, kg, 06/19/19 1:03:00 EDT, Dry Weight Start Date: 09/10/19 Status: Ordered Linzess 72 mcg oral capsule 0 Refills, Maintenance, 10/24/19 13:52:00 EST Start Date: 10/24/19 Status: Ordered lisinopril 30 mg oral tablet 1 tablet = 30 mg, By Mouth, Daily, dose increase, # 30 tablet, 11 Refills, Maintenance, 08/27/19 13:59:38 EST, [facility] 168, cm, 08/20/19 13:32:17 EST, Height, 89.2, kg, 06/19/19 1:03:24 EDT, Dry Weight Start Date: 08/27/19 Status: Ordered metFORMIN 500 mg oral tablet, extended release See Instructions, Take 1000 mg (2 tabs) in the morning and 500 mg (1 tab) in the evening; with food; Icelandic label, # 90 tablet, 5 Refills, Maintenance, 12/25/19 14:51:00 EDT, [facility], 168, cm, 11/19/19 13:14:00 EDT, Height, 89.2, k... Start Date: 12/25/19 Status: Ordered mirtazapine 30 mg oral tablet 1 tablet = 30 mg, Daily at bedtime, 0 Refills, Maintenance, 03/20/19 15:55:40 EDT Start Date: 03/20/19 Status: Ordered montelukast 10 mg oral tablet 10 mg, 1, tablet, By Mouth, Daily, # 90 tablet, Refills 5, Tot. Refills 5, Maintenance, 12/20/19 10:09:00 EDT, Route to Pharmacy Electronically, [facility], 168, cm, 11/19/19 13:14:00EDT, Height, 89.2, kg, 06/19/19 1:03:00 EDT, Dry We... Start Date: 12/20/19 Stop Date: 06/17/20 Status: Ordered naproxen 500 mg oral tablet 1 tablet = 500 mg, By Mouth, 2 times a day, # 60 tablet, 0 Refills, Maintenance, 10/30/19 10:57:00 EST, Tablet Start Date: 10/30/19 Status: Ordered omeprazole 20 mg oral enteric coated capsule 2 capsule = 40 mg, By Mouth, Daily, Icelandic label please, # 60 capsule, 2 Refills, Maintenance, 12/06/19 13:25:00 EDT, EC Capsule, [facility], please discontinue amoxicillin/metronidazole/lansoprazole combination, 168, cm, 11/19/19 13:... Start Date: 12/06/19 Stop Date: 03/05/20 Status: Ordered omeprazole 40 mg oral enteric coated capsule 2 capsule = 80 mg, By Mouth, Daily, via [facility], # 60 capsule, 0 Refills, Maintenance, 01/07/20 13:53:00 EDT, CR Capsule Start Date: 01/07/20 Status: Ordered ProAir HFA 90 mcg/inh inhalation aerosol with adapter 1, puffs, Inhalation, Every 4 hours, PRN, # 8.5 Gm, Refills 5, Tot. Refills 5, Maintenance, 12/20/19 10:09:00 EDT, Aerosol, Route to Pharmacy Electronically, [id number], [facility] 168, cm, 11/19/19 13:14:00... Start Date: 12/20/19 Status: Ordered QUEtiapine 300 mg oral tablet, extended release 0.5 tablet = 150 mg, By Mouth, Daily, Prescribed by Glendy Ospina NP, # 30 tablet, 0 Refills, Maintenance, 10/31/19 17:06:00 EST, ER Tablet Start Date: 10/31/19 Status: Ordered QUEtiapine 50 mg oral tablet 1 tablet = 50 mg, By Mouth, 2 times a day, PRN Anxiety, Delusions, Prescribed by Glendy Ospina NP, # 60 tablet, 0 Refills, Maintenance, 10/31/19 17:10:00 EST, Tablet Start Date: 10/31/19 Status: Ordered SUMAtriptan 50 mg oral tablet 1 tablet = 50 mg, By Mouth, Daily, PRN for migraine headache, may repeat dose after 2 hours up to amaximum of 2; Icelandic label please, # 9 tablet, 0 Refills, Maintenance, 09/10/19 15:12:00 EST, Tablet, [facility] 168, cm, 09/10/19 13... Start Date: 09/10/19 Status: Ordered Vitamin D3 1000 intl units oral capsule 1 capsule = 1,000 International_Units, By Mouth, Daily, Icelandic label please; with food, # 30 capsule, 11 Refills, Maintenance, 12/08/19 10:59:00 EDT, Capsule, [facility] 168, cm, 11/19/19 13:14:00 EDT, Height, 89.2, kg, 06/19/19 1:03... Start Date: 12/08/19 Stop Date: 12/02/20 Status: Ordered Problem List Condition Effective Dates Status Health Status Inform ant Chronic pelvic pain(Confirmed) Active Chronic renal insufficiency(Confirmed) Active Diabetes(Confirmed) Active Fibromyalgia(Confirmed) Active Hypertension(Confirmed) Active Hypertriglyceridemia; mild(Confirmed) Active Hypothyroid(Confirmed) Active Major depression, chronic(Confirmed) Active KIRAN (obstructive sleep apnea ) severe(Confirmed) 2017 Active Palpitations(Confirmed) Active *BHN/BHKRISTINE/Vasquez Guillen-[phone]/Health [facility], active care coordination(Confirmed) Active Seizure-like activity(Confirmed) Active Steatosis of liver(Confirmed) Active Vasovagal syncope(Confirmed) Active Social History Social History Type Response Smoking Status Never smoker entered on: 01/14/16 Sex Female
--- OUTSIDE RECORDS SUMMARY | 2023-07-02 18:47 | XMS_ITS | Continuity of Care Document ---
Author Name Unknown Organization [facility] Address [address] [place] [address]- Care Team Providers Care Shoe Dresser Name Role Phone Vanessa Sharif DO Primary Care Physician Encounter [facility] Date(s): 06/15/20 - 07/15/20 [facility] [address] [place] [id number]- [facility] Allergies, Adverse Reactions, Alerts Substance Reaction Severity [...] inactivated 06/05/18 Not Given Patient Refuses Medications 8 HOUR ARTHRITIS PAIN RELIE 650 Tablet 8 HOUR ARTHRITIS PAIN RELIE 650 Tablet, See Instructions, # 90 tablet, 2 Refills, Maintenance, ULYSSES 1 TABLETA POR LA BOCA CADA 8 HORAS (NO ULYSSES MAS DE 3 TABLETAS CADA MANUEL), 168, cm, 11/19/19 13:14:00 EDT, Height, 89.2, kg, 06/19/19 1:03:00 EDT, Dry... Start Date: 06/17/20 Status: Ordered 8 HOUR ARTHRITIS PAIN RELIE 650 Tablet 8 HOUR ARTHRITIS PAIN RELIE 650 Tablet, See Instructions, # 90 tablet, 2 Refills, Maintenance, ULYSSES 1 TABLETA POR LA BOCA CADA 8 HORAS (NO ULYSSES MAS DE 3 TABLETAS CADA MANUEL), 168, cm, 11/19/19 13:14:00 EDT, Height, 89.2, kg, 06/19/19 1:03:00 EDT, Dry... Start Date: 06/12/20 Status: Ordered albuterol 0.083% inhalation solution 3 mL = 2.5 mg, Inhalation, Every 6 hours, PRN for wheezing, # 60 each, 0 Refills, Maintenance, 12/20/19 10:09:00 EDT, Solution, [facility]., 168, cm, 11/19/19 13:14:00 EDT, Height, [...] mg, By Mouth, Daily, please label in palestinian., # 30 tablet, 11 Refills, Maintenance, 06/23/20 20:27:00 EDT, Tablet, [facility]., 168, cm, 11/19/19 13:14:00 EDT, Height, [...] AL AREA AFECTADA DOS VECES AL MANUEL, # 50 Gm, 0 Refills, Acute, [facility], 25, APLICAR A LA PIEL AL AREA AFECTADA DOS VECES AL MANUEL, 168, cm, 09/24/19 13:53:00 EST, Height, 89.2, kg, 06/19/19 1:03:00 EDT, Start Date: 10/23/19 Status: Ordered Claritin 10 mg oral tablet 10 mg, By Mouth, Daily, # 90 tablet, Refills 0, Tot. Refills 0, Maintenance, 06/23/20 9:15:00 EDT, Route to Pharmacy Electronically, [facility], 168, cm, 11/19/19 13:14:00 EDT, Height, 89.2, [...] NECESARIO, # 30 Gm, 0 Refills, Acute, [facility], 14, APLICAR A LA PIEL AL AREA AFECTADA (DE LA ERUPCION EN EL PIE DERECHO) D... Start Date: 10/23/19 Status: Ordered diclofenac 1% topical gel 1 application, Topically, 4 times a day, PRN for pain, not to exceed 8 grams/day/single joint of upper extremities, # 100 Gm, 0 Refills, Maintenance, 01/19/20 19:54:00 EDT, Gel, [facility], 168, cm, 11/19/19 13:14:00 EDT, Height, 89.2,... Start Date: 01/19/20 Status: Ordered Flovent HFA 220 mcg/inh inhalation aerosol 1 puffs, Inhalation, 2 times a day, # 12 Gm, 3 Refills, Maintenance, 05/27/20 15:45:00 EDT, [facility]ol[facility] 168, cm, 11/19/19 13:14:00 EDT, Height, 89.2, kg, 06/19/19 1:03:00 EDT, Dry Weight Start Date: 05/27/20 Status: Ordered Freestyle Lancets See Instructions, # 100 each, Refills 11, Tot. Refills 11, Maintenance, use as directed for Type 2 Diabetes Mellitus Test 3 times/day Instructions in Mauritanian, 08/09/19 10:57:52 EST, Compound Start Date: 08/09/19 Stop Date: 08/03/20 Status: Ordered Freestyle Lite Test Strips See Instructions, # 100 each, Refills 11, Tot. Refills 11, Maintenance, use as directed for Type 2 Diabetes Mellitus Test 3 times/day Instructions in Mauritanian, 06/23/20 9:15:00 EDT, Compound, 168, cm,11/19/19 13:14:00 EDT, Height, 89.2, kg, 06/19/19... Start Date: 06/23/20 Stop Date: 06/18/21 Status: Ordered gabapentin 600 mg oral tablet 1 tablet = 600 mg, By Mouth, 3 times a day, Mauritanian label, # 270 tablet, 5 Refills, Maintenance, 11/19/19 13:56:00 EDT, Tablet, [facility] 168, cm, 11/19/19 13:14:00 EDT, Height, 89.2, kg, 06/19/19 1:03:00 EDT, Dry Weight Start Date: 11/19/19 Stop Date: 05/12/21 Status: Ordered levothyroxine 125 mcg (0.125 mg) oral tablet See Instructions, ULYSSES 1 TABLETA POR LA BOCA CADA MANUEL, # 30 tablet, 5 Refills, Maintenance, [facility], 168, cm, 11/19/19 13:14:00 EDT, Height, 89.2, kg, 06/19/19 1:03:00 EDT, Dry Weight Start Date: 05/11/20 Status: Ordered Linzess 72 mcg oral capsule 0 Refills, Maintenance, 10/24/19 13:52:00 EST Start Date: 10/24/19 Status: Ordered lisinopril 30 mg oral tablet 1 tablet = 30 mg, By Mouth, Daily, dose increase, # 30 tablet, 11 Refills, Maintenance, 08/27/19 13:59:38 EST, [facility], 168, cm, 08/20/19 13:32:17 EST, Height, 89.2, kg, 06/19/19 1:03:24 EDT, Dry Weight Start Date: 08/27/19 Status: Ordered metFORMIN 500 mg oral tablet, extended release See Instructions, Take 1000 mg (2 tabs) in the morning and 500 mg (1 tab) in the evening; with food; Mauritanian label, # 90 tablet, 5 Refills, Maintenance, 12/25/19 14:51:00 EDT, [facility], 168, cm, 11/19/19 13:14:00 EDT, Height, 89.2, [...] 12/20/19 10:09:00 EDT, Route to Pharmacy Electronically, [facility], 168, cm, 11/19/19 13:14:00EDT, Height, 89.2, kg, [...] capsule = 40 mg, By Mouth, Daily, Mauritanian label please, # 60 capsule, 2 Refills, Maintenance, 12/06/19 13:25:00 EDT, EC Capsule, [facility], please discontinue amoxicillin/metronidazole/lansoprazole combination, 168, , 11/19/19 13:... Start Date: 12/06/19 Stop Date: 03/05/20 Status: Ordered omeprazole 40 mg oral enteric coated capsule 2 capsule = 80 mg, By Mouth, Daily, via [facility], # 60 capsule, 0 Refills, Maintenance, 01/07/20 13:53:00 EDT, CR Capsule Start Date: 01/07/20 Status: Ordered ProAir HFA 90 mcg/inh inhalation aerosol with adapter 1, puffs, Inhalation, Every 4 hours, PRN, # 8.5 Gm, Refills 5, Tot. Refills 5, Maintenance, 12/20/19 10:09:00 EDT, Aerosol, Route to Pharmacy Electronically, [id number], [facility], 168, , 11/19/19 13:14:00... Start Date: 12/20/19 Status: Ordered [...] 2 hours up to amaximum of 2; Mauritanian label please, # 9 tablet, 0 Refills, Maintenance, 09/10/19 15:12:00 EST, Tablet, [facility], 168, cm, 09/10/19 13... Start Date: 09/10/19 Status: Ordered Vitamin D3 1000 intl units oral capsule 1 capsule = 1,000 International_Units, By Mouth, Daily, Mauritanian label please; with food, # 30 capsule, 11 Refills, Maintenance, 12/08/19 10:59:00 EDT, Capsule, [facility] 168, cm, 11/19/19 13:14:00 EDT, Height, 89.2, kg, 06/19/19 1:03... Start Date: 12/08/19 Stop Date: 12/02/20 Status: Ordered Problem List Condition Effective Dates Status Health Status Inform ant Chronic pelvic pain(Confirmed) Active Chronic renal insufficiency(Confirmed) Active Diabetes(Confirmed) Active Fibromyalgia(Confirmed) Active Hypertension(Confirmed) Active Hypertriglyceridemia; mild(Confirmed) Active Hypothyroid(Confirmed) Active Major depression, chronic(Confirmed) Active KIRAN (obstructive sleep apnea ) severe(Confirmed) 2017 Active Palpitations(Confirmed) Active *BHN/BHCP/Vasquez Guillen-[phone]/Health [facility], active care coordination(Confirmed) Active Seizure-like activity(Confirmed) Active Steatosis of liver(Confirmed) Active Vasovagal syncope(Confirmed) Active Social History Social History Type Response Smoking Status Never smoker entered on: 01/14/16 Sex Female
--- OUTSIDE RECORDS SUMMARY | 2023-07-02 18:47 | XMS_ITS | Continuity of Care Document ---
Author Name Unknown Organization [facility] ter Address [address] [place] [id number]- Care Team Providers Care Clinique Counter Manager Name Role Phone Vanessa Sharif DO Primary Care Physician [place] [facility] [place] 08/03/[address] [phone]- Discharge Disposition: A-D/C Walkout Attending Physician: Not [...] 0 Refills, Maintenance, 12/20/19 10:09:00 EDT, Solution, [facility] 168, cm, 11/19/19 13:14:00 EDT, [...] mg, By Mouth, Daily, please label in sammarinese., # 30 tablet, 11 Refills, Maintenance, 06/23/20 [...] PRN for dry skin, Print instructions in sammarinese to affected area, # 454 Gm, 0 [...] 2 Refills, Maintenance, 11/13/20 9:14:00 EST, Gel, [facility] Norwegian label, 168, cm, 11/13/20 8:37:00 EST,... Start Date: 11/13/20 Status: Ordered Freestyle Lancets See Instructions, # 100 each, Refills 11, Tot. Refills 11, Maintenance, use as directed for Type 2 Diabetes Mellitus Test 3 times/day Instructions in Norwegian, 11/10/20 9:37:00 EST, Compound, 168, cm,11/19/19 13:14:00 EDT, Height, 89.2, kg, 06/19/19... Start Date: 11/10/20 Stop Date: 11/05/21 Status: Ordered Freestyle Lite Test Strips See Instructions, # 100 each, Refills 6, Tot. Refills 6, Maintenance, use as directed for Type 2 Diabetes Mellitus Test 3 times/day Instructions in Norwegian, 11/10/20 9:41:00 EST, Duplicate rx-Original rx sent 06/23/20. Remaining refills sent., [facility]... Start Date: 11/10/20 Stop Date: 06/08/21 Status: Ordered gabapentin 600 mg oral tablet 1 tablet = 600 mg, By Mouth, 3 times a day, Norwegian label, # 90 tablet, 5 Refills, Maintenance, 05/12/21 13:56:00 EDT, Tablet, [facility], 168, cm, 11/19/19 13:14:00 EDT, Height, 89.2, kg, 06/19/19 1:03:00 EDT, Dry Weight Start Date: 05/12/21 Stop Date: 11/08/21 Status: Ordered Lac-Hydrin 12% lotion 1 application, Topically, 2 times a day, PRN Dry Skin, Apply and rub in well, # 400 Gm, 2 Refills, Maintenance, 11/13/20 9:08:00 EST, Lotion, [facility], Norwegian label, 1 application Topically 2 times a [...] PRN Pain , Moderate, Print instructions in sammarinese wash hands thoroughly after application, # 50 Gm, 1 Refills, Maintenance, 11/25/20 14:45:00 EDT, Ointment, [facility], Partial fill upon patie... Start Date: 11/25/20 Status: Ordered lisinopril 10 mg oral tablet 10 mg, 1, tablet, By Mouth, Daily, # 30 tablet, Refills 0, Tot. Refills 0, Maintenance, 12/04/20 14:27:00 EDT, Route to Pharmacy Electronically, [facility], Partial fill upon patient request if the prescription is for a schedule II opioi... Start Date: 12/04/20 Status: Ordered metFORMIN 500 mg oral tablet, extended release See Instructions, Take 1000 mg (2 tabs) in the morning and 500 mg (1 tab) in the evening; with food; Norwegian label, # 90 tablet, 5 Refills, Maintenance, 11/06/20 13:47:00 EST, [facility], 168, cm, 11/19/19 13:14:00 EDT, Height, 89.2, k... Start Date: 11/06/20 Status: Ordered montelukast 10 mg oral tablet 10 mg, 1, tablet, By Mouth, Daily, # 90 tablet, Refills 5, Tot. Refills 5, Maintenance, 12/20/19 10:09:00 EDT, Route to Pharmacy Electronically, [facility] 168, cm, 11/19/19 13:14:00EDT, Height, 89.2, [...] 15:09:00 EST, Aerosol, Route to Pharmacy Electronically, [id number], [facility], 168, cm, 11/19/19 [...] Refills, Maintenance, 11/06/20 14:03:00 EST, ER Tablet, [facility] Norwegian label, 168, cm, 11/19/19 13:14:00 EDT, Height, 89.2, k... Start Date: 11/06/20 Status: Ordered Vitamin D3 1000 intl units oral capsule 1 capsule = 1,000 International_Units, By Mouth, Daily, Norwegian label please; with food, # 30 capsule, 5 Refills, Maintenance, 11/06/20 11:55:00 EST, Capsule, [facility]., 168, cm, 11/19/19 13:14:00 EDT, Height, [...] ) severe(Confirmed) 2017 Active Palpitations(Confirmed) Active *BHN/BHCP/KRISTINE-Barbie Denney-[phone]/Health shelter, active care coordination(Confirmed) Active Seizure-like activity(Confirmed) Active Steatosis of liver(Confirmed) Active Vasovagal syncope(Confirmed) Active Results Radiology Reports * Exam Date Time Procedure Performing Provider Status 08/03/21 4:57 PM Chest 2 Views Frontal and Lat Zachery Nelson; Auth (Verified) Notes: (Chest 2 Views Frontal and Lat) Reason For Exam: Chest Pain;Other: RESULT: Chest 2 Views Frontal and Lat Chest 2 Views Frontal and Lat Hx of Present Illness: Patient reports tightness in mid sternal chest area that started this morning. Pt reports neck pain. Pt denies any nausea vomiting or shortness of breath. Pt also wants to talkto someone about her depression.; Reason: Other:; Chest Pain; Clinical Question(s): Other: COMPARISON: 12/02/2020 FINDINGS: LINES AND TUBES: None. LUNGS AND PLEURA: Clear lungs. Normal pulmonary vascularity. No pleural effusion. No pneumothorax. HEART, MEDIASTINUM AND ANGELO: Heart is normal in size. Normal upper mediastinal and hilar contour. BONES AND SOFT TISSUES: No acute abnormality. IMPRESSION: No acute abnormality. WSN: [id number] Ordering Physician: Joon Alan Dictated By: Faustino Mckeon MD Dictated Date/Time: 08/03/21 4:58 pm Reviewed By: Faustino Mckeon MD Signed By: Faustino Mckeon MD Signed Date/Time: 08/03/21 4:58 pm Transcribed By: CESAR Transcribed Date/Time: 08/03/21 4:57 pm Vital Signs Most recent to oldest [Reference Range]: 1 2 Oxygen Saturation [94-100 %] 99 % (08/03/21 4:28 PM) 99 % (08/03/21 3:38 PM) Pulse Rate [55-90 bpm] 76 bpm (08/03/21 4:28 PM) 82 bpm (08/03/21 3:38 PM) Blood Pressure [90-138/55-84 mm Hg] 160/ 84mm Hg *H* (08/03/21 4:28 PM) Respiratory Rate [16-30 br/min] 18 br/mi n (08/03/21 4:28 PM) 18 br/min (08/03/21 3:38 PM) Temperature [96.8-100.4 DegF] 98.2 DegF (08/03/21 4:28 PM) Mode of Delivery (Oxygen) Room air (08/03/21 4:28 PM) Room air (08/03/21 3:38 PM) Blood pressure sites Arm, right (08/03/21 4:28 PM) Temperature Route Oral (08/03/21 4:28 PM) Social History Social History Type Response Smoking Status Never smoker entered on: 01/14/16 Sex Female
--- OUTSIDE RECORDS SUMMARY | 2023-07-02 18:47 | XMS_ITS | Continuity of Care Document ---
Author Name Unknown Organization [facility] Address [address] [place] [id number]- Care Team Providers Care Training Engineer Name Role Phone Layla Chung MD Primary Care Physician Encounter [facility] Date(s): 03/28/23 - 05/14/23 [facility] [address] [place] [id number]- Attending Physician: Not on Staff, Attending MD Admitting Physician: Not on Staff, Admitting MD Referring Physician: Not on Staff, Referring MD Allergies, Adverse Reactions, Alerts Substance Reaction Severity Status penicillin itchy/rash/blisters Active aspirin rash/itchy Active Percocet 5/325 1 C/O: itching Active amLODIPine ankle edema Active 1pt states still takes Immunizations Given and Recorded Vaccine Date Status Refusal Reason pneumococcal 20-valent conjugate vaccine 03/21/23 Given SARS-CoV-2 (COVID-19) mRNA-1273 vaccine 12/24/21 R ecorded SARS-CoV-2 (COVID-19) mRNA-1273 vaccine 02/24/21 R ecorded SARS-CoV-2 (COVID-19) mRNA-1273 vaccine 01/27/21 R ecorded pneumococcal 23-valent vaccine 11/18/20 Given influenza virus vaccine, inactivated 11/18/20 Give n influenza virus vaccine, inactivated 06/10/19 Give n influenza virus vaccine, inactivated 12/07/17 Give n influenza virus vaccine, inactivated 06/25/13 Jerel rded Influenza Virus Vaccine (oldterm) 05/12/16 Recorde d tetanus/diphtheria/pertussis, acel(Tdap) 04/29/16 Given Medications acetaminophen 500 mg oral tablet 2 tablet = 1,000 mg, By Mouth, Every 4 hours, PRN for pain, # 120 tablet, 0 Refills, Maintenance, 02/02/23 22:22:00 EDT, Tablet, Partial fill upon patient request if the prescription is for a schedule II opioid drug. Start Date: 02/02/23 Status: Ordered albuterol 0.083% inhalation solution 3 mL = 2.5 mg, Inhalation, Every 6 hours, PRN for wheezing, # 60 each, 0 Refills, Maintenance, 12/20/19 10:09:00 EDT, Solution, [facility]., 168, cm, 11/19/19 13:14:00 EDT, Height, 89.2, kg, 06/19/19 1:03:00 EDT, Dry Weight Start Date: 12/20/19 Status: Ordered albuterol CFC free 90 mcg/inh inhalation aerosol 2, puffs, Inhalation, 4 times a day, PRN, # 18 Gm, Refills 1, Tot. Refills 1, Maintenance, 02/08/2314:39:00 EDT, Aerosol, Route to Pharmacy Electronically, [id number], [facility], 163, cm, 02/08/23 13:53:00 E... Start Date: 02/08/23 Stop Date: 08/07/23 Status: Ordered Alcohol Wipes See Instructions, # 100 each, Refills 11, Tot. Refills 11, Maintenance, dx dm type 2 - E11.65 INSULIN DEPENDENT, WEN BS 3 X PER DAY, 08/09/19 12:59:00 EST, Compound Start Date: 08/09/19 Status: Ordered atorvastatin 40 mg oral tablet 1 tablet = 40 mg, By Mouth, Daily, please label in ecuadorean., # 30 tablet, 11 Refills, Maintenance, 06/23/20 20:27:00 EDT, Tablet, [facility], 168, cm, 11/19/19 13:14:00 EDT, Height, [...] EST, Compound Start Date: 08/19/19 Status: Ordered chlorthalidone 25 mg oral tablet 25 mg, 1, tablet, By Mouth, Daily, LABEL IN PALAUAN, # 90 tablet, Refills 1, Tot. Refills 1, Maintenance, 04/04/23 15:37:00 EDT, Route to Pharmacy Electronically, [facility], Partial fill upon patient request if the prescription is for... Start Date: 04/04/23 Stop Date: 10/01/23 Status: Ordered Diagnosis : Ambulatory dysfunction Rolling walker Diagnosis : Ambulatory dysfunction Rolling walker, See Instructions, # 1 each, Refills 0, Tot. Refills 0, Maintenance, USe Walker for ambulation, 12/04/20 14:42:00 EDT, Supply Start Date: 12/04/20 Status: Ordered doxycycline hyclate 100 mg oral capsule 0 Refill(s), 0 Refills, 03/21/23 9:10:00 EDT, Partial fill upon patient request if the prescriptionis for a schedule II opioid drug. Start Date: 03/21/23 Status: Ordered eszopiclone 2 mg oral tablet 1 TABLET BY MOUTH AT BEDTIME Start Date: 02/02/23 Status: Ordered Freestyle Lancets See Instructions, # 100 each, Refills 11, Tot. Refills 11, Maintenance, use as directed for Type 2 Diabetes Mellitus Test 3 times/day Instructions in Icelandic, 11/10/20 9:37:00 EST, Compound, 168, cm,11/19/19 13:14:00 EDT, Height, 89.2, kg, 06/19/19... Start Date: 11/10/20 Stop Date: 11/05/21 Status: Ordered Freestyle Lite Test Strips See Instructions, # 100 each, Refills 6, Tot. Refills 6, Maintenance, use as directed for Type 2 Diabetes Mellitus Test 3 times/day Instructions in Icelandic, 11/10/20 9:41:00 EST, Duplicate rx-Original rx sent 06/23/20. Remaining refills sent., [place]... Start Date: 11/10/20 Stop Date: 06/08/21 Status: Ordered gabapentin 300 mg oral capsule TAKE 1 CAPSULE BY MOUTH THREE TIMES DAILY Start Date: 02/02/23 Status: Ordered levothyroxine 125 mcg (0.125 mg) oral tablet 1 tablet = 125 mcg, By Mouth, Daily, # 90 tablet, 1 Refills, Maintenance, 02/03/23 6:24:00 EDT, Tablet, [facility] Partial fill upon patient request if the prescription is for a schedule II opioid drug., 163, cm, 01/13/23 15:11:00 EDT... Start Date: 02/03/23 Stop Date: 08/02/23 Status: Ordered lisinopril 40 mg oral tablet 1 tablet = 40 mg, By Mouth, Daily, Increased dose from 20mg to 40mg qhs. LABEL IN PALAUAN, # 90 tablet, 1 Refills, Maintenance, 03/21/23 9:26:00 EDT, Tablet, [facility] Partial fill upon patient request if the prescription is for a sc... Start Date: 03/21/23 Stop Date: 09/17/23 Status: Ordered LORazepam 0.5 mg oral tablet TAKE 1 TABLET BY MOUTH TWICE A DAY NEEDED FOR ANXIETY- Start Date: 02/02/23 Status: Ordered metFORMIN 500 mg oral tablet, extended release See Instructions, LABEL IN PALAUAN First three days take 1 tablet daily and the increase to 1 tablet two times a day. Slow increase of medication until you reach 2 tablets twice a day with meals, # 360 tablet, 1 Refills, Maintenance, 02/03/23 6:25:00... Start Date: 02/03/23 Status: Ordered mirtazapine 15 mg oral tablet TAKE 1 TABLET BY MOUTH AT BEDTIME Start Date: 02/02/23 Status: Ordered omeprazole 20 mg oral enteric coated capsule 1 capsule = 20 mg, By Mouth, Daily, # 90 capsule, 1 Refills, Maintenance, 01/31/23 12:04:00 EDT, Suspension, [facility] Partial fill upon patient request if the prescription is for aschedule II opioid drug., 163, cm, 01/13/23 15:11:0... Start Date: 01/31/23 Stop Date: 07/30/23 Status: Ordered Preparation H 0.25% rectal suppository See Instructions, To use daily PRN for hemorrhoidal pain, # 10 supp, 0 Refills, Maintenance, 03/21/23 9:41:00 EDT, [facility] upon patient request if the prescription isfor a schedule II opioid drug., To use daily PRN fo... Start Date: 03/21/23 Status: Ordered SUMAtriptan 50 mg oral tablet 1 tablet = 50 mg, By Mouth, Daily, PRN for migraine headache, May repeat dose after 2 hours up to amaximum of 2. Limit use to <10 days per month to avoid medication overuse headache., # 9 tablet,1 Refills, Maintenance, 03/21/23 9:32:00 EDT, Tablet,... Start Date: 03/21/23 Status: Ordered Ventolin HFA 108 mcg/inh inhalation aerosol with adapter 18 Gm, 0 Refill(s), 0 Refills, 03/21/23 9:10:00 EDT, Partial fill upon patient request if the prescription is for a schedule II opioid drug. Start Date: 03/21/23 Status: Ordered Problem List Condition Confirmation Course Effective Dates Status H ealt Status Informant Chronic pelvic pain Confirmed Active Chronic renal insufficiency Confirmed Active COVID-19 1 Confirmed 08/11/22 Active Diabetes Confirmed Active Fibromyalgia Confirmed Active GERD (gastroesophageal reflux disease) Confirmed Active Hypertension Confirmed Active Hypertriglyceridemia ; mild Confirmed Active Hypothyroid Confirmed Active Major depression, chronic Confirmed Active Migraines Confirmed Active Mild intermittent asthma Confirmed Active Obese class I Confirmed Active KIRAN (obstructive sleep apnea) severe Confirmed 2017 Active Palpitations Confirmed Active *BHN/BHCP/Patricia Denney-[phone]/H [facility], active care coordination Confirmed Active Colonic polyp Confirmed Active Seizure-like activity Confirmed Active Steatosis of liver Confirmed Active Vasovagal syncope Confirmed Active 1Problem added by Discern Expert Social History Social History Type Response Smoking Status Never smoker entered on: 01/14/16 Sex Female Patient Care team information Care Team Personnel Name: Germania Kelly RN Position: [facility] RN Member Role: Primary Care Nurse Name: Shelly Yo RN Position: [facility] RN Member Role: Primary Care Nurse Name: Layla Chung MD Position: [facility] Physician - Primary Care Member Role: PCP Address: Address: [address] [facility] [place] [address]- Name: Charis Schmitt RN Position: [facility] RN Member Role: Primary Care Nurse Name: Flaca Roe RN Position: [facility] RN Member Role: Primary Care Nurse Care Team Related Persons Name: MIS HARVEY Address: home [address] [place] [address] Name: ADRIAN HARVEY Address: [place] [address] Name: JACQUELINE HARVEY Address: home [address] [address]
--- OUTSIDE RECORDS SUMMARY | 2023-07-02 18:47 | XMS_ITS | Continuity of Care Document ---
Author Name Unknown Organization [facility] Address [address] [place] [id number]- Care Team Providers Care 8Th Grade Mathematics Teacher Name Role Phone Vanessa Sharif DO Primary Care Physician Encounter [facility] Date(s): 11/11/19 - 01/05/20 [facility] [address] [place] [id number]- [facility] Attending Physician: Luz Valentine DO Admitting Physician: Luz Valentine DO Allergies, Adverse Reactions, Alerts Substance Reaction [...] Stop 12/24/20 11:35:00 EDT, 12/25/19 11:34:00 EDT, [facility] Start Date: 12/25/19 Stop Date: 12/24/20 Status: Ordered albuterol 0.083% inhalation solution 3 mL = 2.5 mg, Inhalation, Every 6 hours, PRN for wheezing, # 60 each, 0 Refills, Maintenance, 12/20/19 10:09:00 EDT, Solution, [facility] 168, cm, 11/19/19 13:14:00 EDT, [...] mg, By Mouth, Daily, please label in mohawk. discontinue the atorvastatin, # 30 tablet, 5 Refills, Maintenance, 12/18/19 16:05:00 EDT, Tablet, [facility], 168, cm, 11/19/19 13:14:00 EDT, Height, [...] MANUEL, # 50 Gm, 0 Refills, Acute, [facility], 25, APLICAR A LA PIEL AL AREA AFECTADA DOS VECES AL MANUEL, 168, cm, 09/24/19 13:53:00 EST, Height, 89.2, kg, 06/19/19 1:03:00 EDT, Start Date: 10/23/19 Status: Ordered Claritin 10 mg oral tablet 10 mg, By Mouth, Daily, # 90 tablet, Refills 0, Tot. Refills 0, Maintenance, 12/18/19 14:20:00 EDT,Route to Pharmacy Electronically, [facility], 168, cm, 11/19/19 13:14:00 EDT, Height, [...] NECESARIO, # 30 Gm, 0 Refills, Acute, [facility], 14, APLICAR A LA PIEL AL AREA AFECTADA (DE LA ERUPCION EN EL PIE DERECHO) D... Start Date: 10/23/19 Status: Ordered diclofenac 1% topical gel 1 application, Topically, 4 times a day, PRN for pain, not to exceed 8 grams/day/single joint of upper extremities, # 100 Gm, 0 Refills, Maintenance, 12/18/19 18:21:00 EDT, Gel, [facility]., 168, cm, 11/19/19 13:14:00 EDT, Height, 89.2,... Start Date: 12/18/19 Status: Ordered doxycycline hyclate 100 mg oral capsule 1 capsule = 100 mg, By Mouth, 2 times a day, for 7 days, # 14 capsule, 0 Refills, Acute 01/08/20 17:18:00 EDT, 01/01/20 17:18:00 EDT, Capsule Start Date: 01/01/20 Stop Date: 01/08/20 Status: Ordered Flovent HFA 220 mcg/inh inhalation aerosol 1 puffs, Inhalation, 2 times a day, # 12 Gm, 3 Refills, Maintenance, 12/20/19 13:42:00 EDT, Aerosol, [facility] 168, cm, 11/19/19 13:14:00 EDT, Height, 89.2, kg, 06/19/19 1:03:00 EDT, Dry Weight Start Date: 12/20/19 Status: Ordered Freestyle Lancets See Instructions, # 100 each, Refills 11, Tot. Refills 11, Maintenance, use as directed for Type 2 Diabetes Mellitus Test 3 times/day Instructions in Slovak, 08/09/19 10:57:52 EST, Compound Start Date: 08/09/19 Stop Date: 08/03/20 Status: Ordered Freestyle Lite Test Strips See Instructions, # 100 each, Refills 11, Tot. Refills 11, Maintenance, use as directed for Type 2 Diabetes Mellitus Test 3 times/day Instructions in Slovak, 08/09/19 10:57:52 EST, Compound Start Date: 08/09/19 Stop Date: 08/03/20 Status: Ordered gabapentin 600 mg oral tablet 1 tablet = 600 mg, By Mouth, 3 times a day, Slovak label, # 270 tablet, 5 Refills, Maintenance, 11/19/19 13:56:00 EDT, Tablet, [facility] 168, cm, 11/19/19 13:14:00 EDT, Height, 89.2, kg, 06/19/19 1:03:00 EDT, Dry Weight Start Date: 11/19/19 Stop Date: 05/12/21 Status: Ordered levothyroxine 125 mcg (0.125 mg) oral tablet 1 tablet = 125 mcg, By Mouth, Daily, Slovak label, # 30 tablet, 5 Refills, Maintenance, 09/10/19 15:16:00 EST, Tablet, [facility] 168, cm, 09/10/19 13:44:00 EST, Height, 89.2, kg, 06/19/19 1:03:00 EDT, Dry Weight Start Date: 09/10/19 Status: Ordered Linzess 72 mcg oral capsule 0 Refills, Maintenance, 10/24/19 13:52:00 EST Start Date: 10/24/19 Status: Ordered lisinopril 30 mg oral tablet 1 tablet = 30 mg, By Mouth, Daily, dose increase, # 30 tablet, 11 Refills, Maintenance, 08/27/19 13:59:38 EST, [facility], 168, cm, 08/20/19 13:32:17 EST, Height, 89.2, kg, 06/19/19 1:03:24 EDT, Dry Weight Start Date: 08/27/19 Status: Ordered metFORMIN 500 mg oral tablet, extended release See Instructions, Take 1000 mg (2 tabs) in the morning and 500 mg (1 tab) in the evening; with food; Slovak label, # 90 tablet, 5 Refills, Maintenance, 12/25/19 14:51:00 EDT, [facility], 168, cm, 11/19/19 13:14:00 EDT, Height, [...] 12/20/19 10:09:00 EDT, Route to Pharmacy Electronically, [facility], 168, cm, 11/19/19 13:14:00EDT, Height, 89.2, [...] capsule = 40 mg, By Mouth, Daily, Slovak label please, # 60 capsule, 2 Refills, Maintenance, 12/06/19 13:25:00 EDT, EC Capsule, [facility]., please discontinue amoxicillin/metronidazole/lansoprazole combination, 168, cm, 11/19/19 13:... Start Date: 12/06/19 Stop Date: 03/05/20 Status: Ordered ProAir HFA 90 mcg/inh inhalation aerosol with adapter 1, puffs, Inhalation, Every 4 hours, PRN, # 8.5 Gm, Refills 5, Tot. Refills 5, Maintenance, 12/20/19 10:09:00 EDT, Aerosol, Route to Pharmacy Electronically, [id number], [facility], 168, cm, 11/19/19 13:14:00... Start Date: 12/20/19 [...] 2 hours up to amaximum of 2; Slovak label please, # 9 tablet, 0 Refills, Maintenance, 09/10/19 15:12:00 EST, Tablet, [facility], 168, cm, 09/10/19 13... Start Date: 09/10/19 Status: Ordered Vitamin D3 1000 intl units oral capsule 1 capsule = 1,000 International_Units, By Mouth, Daily, Slovak label please; with food, # 30 capsule, 11 Refills, Maintenance, 12/08/19 10:59:00 EDT, Capsule, [facility]., 168, cm, 11/19/19 13:14:00 EDT, [...] ) severe(Confirmed) 2017 Active Palpitations(Confirmed) Active *BHN/BHKRISTINE/Vasquez Guillen-[phone]/Health residential, active care coordination(Confirmed) Active Seizure-like activity(Confirmed) Active Steatosis of liver(Confirmed) Active Vasovagal syncope(Confirmed) Active Social History Social History Type Response Smoking Status Never smoker entered on: 01/14/16 Sex Female
--- OUTSIDE RECORDS SUMMARY | 2023-07-02 18:47 | XMS_ITS | Continuity of Care Document ---
Author Name Unknown Organization [facility] Address [address] [place] [address]- Care Team Providers Care Licensed Loan Officer Assistant Name Role Phone Vanessa Sharif DO Primary Care Physician Encounter [facility] Date(s): 12/06/19 - 12/16/19 [facility] [address] [place] [id number]- [facility] Attending Physician: Silvino Vance Admitting Physician: Silvino Vance Referring Physician: AdmtrSilvino Allergies, Adverse Reactions, Alerts Substance Reaction Severity [...] A 4000MG DE TYLENOL/APAP/ACETAMINOPHEN), # 100 tablet, 1 Refills, Physician Stop 01/18/20 23:00:00 EDT, 11/18/19 7:10:00 EDT, [facility] Start Date: 11/18/19 Stop Date: 01/18/20 Status: Ordered albuterol 0.083% inhalation solution 3 mL = 2.5 mg, Inhalation, Every 6 hours, PRN for wheezing, # 60 each, 0 Refills, Maintenance, 12/13/18 10:59:39 EDT, Solution Start Date: 12/13/18 Status: Ordered Alcohol Wipes See Instructions, # [...] mg, By Mouth, Daily, please label in kazakh. discontinue the atorvastatin, # 30 tablet, 6 Refills, Maintenance, 06/10/19 18:45:02 EDT, Tablet Start Date: 06/10/19 Status: Ordered BATH BENCH BATH BENCH, See [...] MANUEL, # 50 Gm, 0 Refills, Acute, [facility], 25, APLICAR A LA PIEL AL AREA AFECTADA DOS VECES AL MANUEL, 168, cm, 09/24/19 13:53:00 EST, Height, 89.2, kg, 06/19/19 1:03:00 EDT, . Start Date: 10/23/19 Status: Ordered Claritin 10 mg oral tablet 10 mg, By Mouth, Daily, # 90 tablet, Refills 4, Tot. Refills 4, Maintenance, 12/13/18 11:00:05 EDT,Route to Pharmacy Electronically, [id number], [facility] Start Date: 12/13/18 Stop Date: 03/07/20 Status: Ordered clonazePAM 0.5 mg oral tablet [...] NECESARIO, # 30 Gm, 0 Refills, Acute, [facility], 14, APLICAR A LA PIEL AL AREA AFECTADA (DE LA ERUPCION EN EL PIE DERECHO) D... Start Date: 10/23/19 Status: Ordered diclofenac 1% topical gel 1 application, Topically, 4 times a day, PRN for pain, # 100 Gm, 0 Refills, Maintenance, 07/09/19 9:44:43 EDT, Gel, 1 application Topically 4 times a day,PRN:for pain Start Date: 07/09/19 Status: Ordered Flovent HFA 110 mcg/inh inhalation aerosol 2 puffs, Inhalation, 2 times a day, # 12 Gm, 5 Refills, Maintenance, 12/13/18 10:59:55 EDT, Aerosol Start Date: 12/13/18 Status: Ordered Freestyle Lancets See Instructions, # 100 each, Refills 11, Tot. Refills 11, Maintenance, use as directed for Type 2 Diabetes Mellitus Test 3 times/day Instructions in Bolivian, 08/09/19 10:57:52 EST, Compound Start Date: 08/09/19 Stop Date: 08/03/20 Status: Ordered Freestyle Lite Test Strips See Instructions, # 100 each, Refills 11, Tot. Refills 11, Maintenance, use as directed for Type 2 Diabetes Mellitus Test 3 times/day Instructions in Bolivian, 08/09/19 10:57:52 EST, Compound Start Date: 08/09/19 Stop Date: 08/03/20 Status: Ordered gabapentin 600 mg oral tablet 1 tablet = 600 mg, By Mouth, 3 times a day, Bolivian label, # 270 tablet, 5 Refills, Maintenance, 11/19/19 13:56:00 EDT, Tablet, [facility]., 168, cm, 11/19/19 13:14:00 EDT, Height, 89.2, kg, 06/19/19 1:03:00 EDT, Dry Weight Start Date: 11/19/19 Stop Date: 05/12/21 Status: Ordered levothyroxine 125 mcg (0.125 mg) oral tablet 1 tablet = 125 mcg, By Mouth, Daily, Bolivian label, # 30 tablet, 5 Refills, Maintenance, 09/10/19 15:16:00 EST, Tablet, [facility], 168, cm, 09/10/19 13:44:00 EST, Height, 89.2, kg, 06/19/19 1:03:00 EDT, Dry Weight Start Date: 09/10/19 Status: Ordered Linzess 72 mcg oral capsule 0 Refills, Maintenance, 10/24/19 13:52:00 EST Start Date: 10/24/19 Status: Ordered lisinopril 30 mg oral tablet 1 tablet = 30 mg, By Mouth, Daily, dose increase, # 30 tablet, 11 Refills, Maintenance, 08/27/19 13:59:38 EST, [facility] 168, cm, 08/20/19 13:32:17 EST, Height, 89.2, kg, 06/19/19 1:03:24 EDT, Dry Weight Start Date: 08/27/19 Status: Ordered metFORMIN 500 mg oral tablet, extended release See Instructions, ULYSSES 2 TABLETAS POR LA BOCA CADA MANUEL, # 60 tablet, 5 Refills, Maintenance, [facility], 168, cm, 09/10/19 13:44:00 EST, Height, 89.2, kg, 06/19/19 1:03:00 EDT, Dry Weight Start Date: 09/20/19 Status: Ordered mirtazapine 30 mg oral tablet 1 tablet = 30 mg, Daily at bedtime, 0 Refills, Maintenance, 03/20/19 15:55:40 EDT Start Date: 03/20/19 Status: Ordered montelukast 10 mg oral tablet 10 mg, 1, tablet, By Mouth, Daily, # 30 tablet, Refills 5, Tot. Refills 5, Maintenance, 07/24/19 9:39:34 EST, Route to Pharmacy Electronically, [id number], [facility] Start Date: 07/24/19 Stop Date: 01/20/20 Status: Ordered naproxen 500 mg oral tablet 1 tablet = 500 mg, By Mouth, 2 times a day, # 60 tablet, 0 Refills, Maintenance, 10/30/19 10:57:00 EST, Tablet Start Date: 10/30/19 Status: Ordered omeprazole 20 mg oral enteric coated capsule 2 capsule = 40 mg, By Mouth, Daily, Bolivian label please, # 60 capsule, 2 Refills, Maintenance, 12/06/19 13:25:00 EDT, EC Capsule, [facility], please discontinue amoxicillin/metronidazole/lansoprazole combination, 168, cm, 11/19/19 13:... Start Date: 12/06/19 Stop Date: 03/05/20 Status: Ordered ProAir HFA 90 mcg/inh inhalation aerosol with adapter 1, puffs, Inhalation, Every 4 hours, PRN, # 8.5 Gm, Refills 5, Tot. Refills 5, Maintenance, 12/13/18 10:59:41 EDT, Aerosol, Route to Pharmacy Electronically, [id number], [facility] Start Date: 12/13/18 Status: Ordered QUEtiapine 300 mg oral tablet, [...] 2 hours up to amaximum of 2; Bolivian label please, # 9 tablet, 0 Refills, Maintenance, 09/10/19 15:12:00 EST, Tablet, [facility], cm, 09/10/19 13... Start Date: 09/10/19 Status: Ordered Vitamin D3 1000 intl units oral capsule 1 capsule = 1,000 International_Units, By Mouth, Daily, Bolivian label please; with food, # 30 capsule, 11 Refills, Maintenance, 12/08/19 10:59:00 EDT, Capsule, [facility] 168, cm, 11/19/19 13:14:00 EDT, Height, 89.2, kg, 06/19/19 1:03... Start Date: 12/08/19 Stop Date: 12/02/20 Status: Ordered Problem List Condition Effective Dates Status Health Status Inform ant Chronic pelvic pain(Confirmed) Active Chronic renal insufficiency(Confirmed) Active Diabetes(Confirmed) Active Fibromyalgia(Confirmed) Active Hypertension(Confirmed) Active Hypertriglyceridemia; mild(Confirmed) Active Hypothyroid(Confirmed) Active Major depression, chronic(Confirmed) Active KIRAN (obstructive sleep apnea)(Confirmed) Active Palpitations(Confirmed) Active *BHN/BHCP/Vasquez Guillen-[phone]/Health half-way, active care coordination(Confirmed) Active Seizure-like activity(Confirmed) Active Steatosis of liver(Confirmed) Active Vasovagal syncope(Confirmed) Active Social History Social History Type Response Smoking Status Never smoker entered on: 01/14/16 Sex Female
--- OUTSIDE RECORDS SUMMARY | 2023-07-02 18:47 | XMS_ITS | Continuity of Care Document ---
Author Name Unknown Organization [facility] Address [address] [place] [address]- Care Team Providers Care Assembly Line Upholsterer Name Role Phone Vanessa Sharif DO Primary Care Physician Encounter [facility] [place] Date(s): 11/13/20 - 12/19/20 [facility] [address] [place] [address]- Attending Physician: Luz Valentine DO Admitting Physician: [...] 0 Refills, Maintenance, 12/20/19 10:09:00 EDT, Solution, [facility], 168, cm, 11/19/19 13:14:00 EDT, Height, 89.2, [...] mg, By Mouth, Daily, please label in austrian., # 30 tablet, 11 Refills, Maintenance, 06/23/20 20:27:00 EDT, Tablet, [facility], 168, cm, 11/19/19 13:14:00 EDT, Height, [...] PRN for dry skin, Print instructions in austrian to affected area, # 454 Gm, 0 Refills, Maintenance, 11/25/20 14:30:00 EDT, Cream, [facility], Partial fill upon patient request if the prescripti... Start Date: 11/25/20 Status: Ordered Claritin 10 mg oral tablet 10 mg, By Mouth, Daily, # 90 tablet, Refills 0, Tot. Refills 0, Maintenance, 06/23/20 9:15:00 EDT, Route to Pharmacy Electronically, [facility], 168, cm, 11/19/19 13:14:00 EDT, Height, [...] 2 Refills, Maintenance, 11/13/20 9:14:00 EST, Gel, [facility]., [place] Zealander label, 168, cm, 11/13/20 8:37:00 EST,... Start Date: 11/13/20 Status: Ordered Freestyle Lancets See Instructions, # 100 each, Refills 11, Tot. Refills 11, Maintenance, use as directed for Type 2 Diabetes Mellitus Test 3 times/day Instructions in [place] Zealander, 11/10/20 9:37:00 EST, Compound, 168, cm,11/19/19 13:14:00 EDT, Height, 89.2, kg, 06/19/19... Start Date: 11/10/20 Stop Date: 11/05/21 Status: Ordered Freestyle Lite Test Strips See Instructions, # 100 each, Refills 6, Tot. Refills 6, Maintenance, use as directed for Type 2 Diabetes Mellitus Test 3 times/day Instructions in [place] Zealander, 11/10/20 9:41:00 EST, Duplicate rx-Original rx sent 06/23/20. Remaining refills sent., [place]... Start Date: 11/10/20 Stop Date: 06/08/21 Status: Ordered gabapentin 600 mg oral tablet 1 tablet = 600 mg, By Mouth, 3 times a day, [place]alander label, # 90 tablet, 5 Refills, Maintenance, 05/12/21 13:56:00 EDT, Tablet, [facility]., 168, cm, 11/19/19 13:14:00 EDT, Height, 89.2, kg, 06/19/19 1:03:00 EDT, Dry Weight Start Date: 05/12/21 Stop Date: 11/08/21 Status: Ordered Lac-Hydrin 12% lotion 1 application, Topically, 2 times a day, PRN Dry Skin, Apply and rub in well, # 400 Gm, 2 Refills, Maintenance, 11/13/20 9:08:00 EST, Lotion, [facility], [place]ander label, 1 application Topically 2 times a [...] PRN Pain , Moderate, Print instructions in austrian wash hands thoroughly after application, # 50 Gm, 1 Refills, Maintenance, 11/25/20 14:45:00 EDT, Ointment, [facility], Partial fill upon patie... Start Date: 11/25/20 Status: Ordered lisinopril 10 mg oral tablet 10 mg, 1, tablet, By Mouth, Daily, # 30 tablet, Refills 0, Tot. Refills 0, Maintenance, 12/04/20 14:27:00 EDT, Route to Pharmacy Electronically, [facility], Partial fill upon patient request if the prescription is for a schedule II opioi... Start Date: 12/04/20 Status: Ordered metFORMIN 500 mg oral tablet, extended release See Instructions, Take 1000 mg (2 tabs) in the morning and 500 mg (1 tab) in the evening; with food; New Zealander label, # 90 tablet, 5 Refills, Maintenance, 11/06/20 13:47:00 EST, [facility], 168, cm, 11/19/19 13:14:00 EDT, Height, 89.2, k... Start Date: 11/06/20 Status: Ordered montelukast 10 mg oral tablet 10 mg, 1, tablet, By Mouth, Daily, # 90 tablet, Refills 5, Tot. Refills 5, Maintenance, 12/20/19 10:09:00 EDT, Route to Pharmacy Electronically, [facility]., 168, cm, 11/19/19 13:14:00EDT, Height, 89.2, [...] 15:09:00 EST, Aerosol, Route to Pharmacy Electronically, [id number], [facility], 168, cm, 11/19/19 13:14:00... Start Date: [...] Refills, Maintenance, 11/13/20 9:08:00 EST, ER Tablet, [facility], Partial fill upon patient request if [...] 12/23/20 14:46:00 EDT, 11/25/20 14:46:00 EDT, Cream, [facility], Partial fill upon patient request if the prescription is... Start Date: 11/25/20 Stop Date: 12/23/20 Status: Ordered Tylenol 8 Hour 650 mg oral tablet, extended release 1 tablet = 650 mg, By Mouth, Every 8 hours, PRN Pain , Mild, Not to exceed 2000 mg/day., # 100 tablet, 2 Refills, Maintenance, 11/06/20 14:03:00 EST, ER Tablet, [facility], [place]ander label, 168, cm, 11/19/19 13:14:00 EDT, Height, 89.2, k... Start Date: 11/06/20 Status: Ordered Vitamin D3 1000 intl units oral capsule 1 capsule = 1,000 International_Units, By Mouth, Daily, [place] Zealander label please; with food, # 30 capsule, 5 Refills, Maintenance, 11/06/20 11:55:00 EST, Capsule, [facility], 168, cm, 11/19/19 13:14:00 EDT, Height, [...] apnea ) severe(Confirmed) 2017 Active Palpitations(Confirmed) Active *BHN/BHCP/CP-Barbie Leavitt Eawya-[phone]/Health [facility] living, active care coordination(Confirmed) Active Seizure-like activity(Confirmed) Active Steatosis of liver(Confirmed) Active Vasovagal syncope(Confirmed) Active Social History Social History Type Response Smoking Status Never smoker entered on: 01/14/16 Sex Female
--- OUTSIDE RECORDS SUMMARY | 2023-07-02 18:47 | XMS_ITS | Continuity of Care Document ---
Author Name Unknown Organization [facility] Address [address] [place] [id number]- Care Team Providers Care Car Repairer Apprentice Name Role Phone Vanessa Sharif DO Primary Care Physician Encounter [facility] [place] Date(s): 11/13/20 - 01/23/21 [facility] [address] [place] [id number] Attending Physician: Deepa SORIA, Katelin Admitting Physician: [...] 0 Refills, Maintenance, 12/20/19 10:09:00 EDT, Solution, [facility], 168, cm, 11/19/19 13:14:00 EDT, [...] mg, By Mouth, Daily, please label in bermudian., # 30 tablet, 11 Refills, Maintenance, 06/23/20 20:27:00 EDT, Tablet, [facility], 168, cm, 11/19/19 13:14:00 EDT, Height, [...] PRN for dry skin, Print instructions in bermudian to affected area, # 454 Gm, 0 Refills, Maintenance, 11/25/20 14:30:00 EDT, Cream, [facility], Partial fill upon patient request if the prescripti... Start Date: 11/25/20 Status: Ordered Claritin 10 mg oral tablet 10 mg, By Mouth, Daily, # 90 tablet, Refills 0, Tot. Refills 0, Maintenance, 06/23/20 9:15:00 EDT, Route to Pharmacy Electronically, [facility], 168, cm, 11/19/19 13:14:00 EDT, Height, [...] 2 Refills, Maintenance, 11/13/20 9:14:00 EST, [facility], [facility] [place] [facility], 168, cm, 11/13/20 8:37:00 EST,... Start Date: 11/13/20 Status: Ordered Freestyle Lancets See Instructions, # 100 each, Refills 11, Tot. Refills 11, Maintenance, use as directed for Type 2 Diabetes Mellitus Test 3 times/day Instructions in Polish, 11/10/20 9:37:00 EST, Compound, 168, cm,11/19/19 13:14:00 EDT, Height, 89.2, kg, 06/19/19... Start Date: 11/10/20 Stop Date: 11/05/21 Status: Ordered Freestyle Lite Test Strips See Instructions, # 100 each, Refills 6, Tot. Refills 6, Maintenance, use as directed for Type 2 Diabetes Mellitus Test 3 times/day Instructions in Polish, 11/10/20 9:41:00 EST, Duplicate rx-Original rx sent 06/23/20. Remaining refills sent., [place]... Start Date: 11/10/20 Stop Date: 06/08/21 Status: Ordered gabapentin 600 mg oral tablet 1 tablet = 600 mg, By Mouth, 3 times a day, Polish label, # 90 tablet, 5 Refills, Maintenance, 05/12/21 13:56:00 EDT, Tablet, [facility]., 168, cm, 11/19/19 13:14:00 EDT, Height, 89.2, kg, 06/19/19 1:03:00 EDT, Dry Weight Start Date: 05/12/21 Stop Date: 11/08/21 Status: Ordered Lac-Hydrin 12% lotion 1 application, Topically, 2 times a day, PRN Dry Skin, Apply and rub in well, # 400 Gm, 2 Refills, Maintenance, 11/13/20 9:08:00 EST, Lotion, [facility], Polish label, 1 application Topically 2 times a [...] PRN Pain , Moderate, Print instructions in bermudian wash hands thoroughly after application, # 50 Gm, 1 Refills, Maintenance, 11/25/20 14:45:00 EDT, Ointment, [facility], Partial fill upon patie... Start Date: 11/25/20 Status: Ordered lisinopril 10 mg oral tablet 10 mg, 1, tablet, By Mouth, Daily, # 30 tablet, Refills 0, Tot. Refills 0, Maintenance, 12/04/20 14:27:00 EDT, Route to Pharmacy Electronically, [facility], Partial fill upon patient request if the prescription is for a schedule II opioi... Start Date: 12/04/20 Status: Ordered metFORMIN 500 mg oral tablet, extended release See Instructions, Take 1000 mg (2 tabs) in the morning and 500 mg (1 tab) in the evening; with food; Polish label, # 90 tablet, 5 Refills, Maintenance, 11/06/20 13:47:00 EST, [facility]., 168, cm, 11/19/19 13:14:00 EDT, Height, 89.2, k... Start Date: 11/06/20 Status: Ordered montelukast 10 mg oral tablet 10 mg, 1, tablet, By Mouth, Daily, # 90 tablet, Refills 5, Tot. Refills 5, Maintenance, 12/20/19 10:09:00 EDT, Route to Pharmacy Electronically, [facility], 168, cm, 11/19/19 13:14:00EDT, Height, 89.2, [...] 15:09:00 EST, Aerosol, Route to Pharmacy Electronically, [id number], [facility], 168, cm, 11/19/19 13:14:00... Start Date: [...] Refills, Maintenance, 11/13/20 9:08:00 EST, ER Tablet, [facility], Partial fill upon patient request if [...] Refills, Maintenance, 11/06/20 14:03:00 EST, ER Tablet, [facility]., Polish label, 168, cm, 11/19/19 13:14:00 EDT, Height, 89.2, k... Start Date: 11/06/20 Status: Ordered Vitamin D3 1000 intl units oral capsule 1 capsule = 1,000 International_Units, By Mouth, Daily, Polish label please; with food, # 30 capsule, 5 Refills, Maintenance, 11/06/20 11:55:00 EST, Capsule, [facility]., 168, cm, 11/19/19 13:14:00 EDT, [...] ) severe(Confirmed) 2017 Active Palpitations(Confirmed) Active *BHN/BHCP/Lisa Denney-[phone]/Health intermediate, active care coordination(Confirmed) Active Seizure-like activity(Confirmed) Active Steatosis of liver(Confirmed) Active Vasovagal syncope(Confirmed) Active Social History Social History Type Response Smoking Status Never smoker entered on: 01/14/16 Sex Female
--- OUTSIDE RECORDS SUMMARY | 2023-07-02 18:47 | XMS_ITS | Continuity of Care Document ---
Author Name Unknown Organization [facility] Address [address] [place] [id number]- Care Team Providers Care Stave Cutter Name Role Phone Vanessa Sharif DO Primary Care Physician Encounter [facility] [place] Date(s): 12/02/20 - 12/04/[address] [address]- Encounter Diagnosis Left facial numbness(Final) - 12/02/20 Discharge Disposition: A-D/C Home Attending Physician: Colleen SORIA, Cortney Roldan Admitting Physician: Cortney Macias MD Referring Physician: Not on Staff, Referring [...] 0 Refills, Maintenance, 12/20/19 10:09:00 EDT, Solution, [facility] 168, cm, 11/19/19 13:14:00 EDT, Height, [...] mg, By Mouth, Daily, please label in ugandan., # 30 tablet, 11 Refills, Maintenance, 06/23/20 20:27:00 EDT, Tablet, [facility], 168, cm, 11/19/19 13:14:00 EDT, Height, 89.2, [...] PRN for dry skin, Print instructions in ugandan to affected area, # 454 Gm, 0 Refills, Maintenance, 11/25/20 14:30:00 EDT, Cream, [facility], Partial fill upon patient request if the prescripti... Start Date: 11/25/20 Status: Ordered Claritin 10 mg oral tablet 10 mg, By Mouth, Daily, # 90 tablet, Refills 0, Tot. Refills 0, Maintenance, 06/23/20 9:15:00 EDT, Route to Pharmacy Electronically, [facility], 168, cm, 11/19/19 13:14:00 EDT, Height, 89.2, [...] 2 Refills, Maintenance, 11/13/20 9:14:00 EST, Gel, [facility] Macanese label, 168, cm, 11/13/20 8:37:00 EST,... Start Date: 11/13/20 Status: Ordered Freestyle Lancets See Instructions, # 100 each, Refills 11, Tot. Refills 11, Maintenance, use as directed for Type 2 Diabetes Mellitus Test 3 times/day Instructions in Macanese, 11/10/20 9:37:00 EST, Compound, 168, cm,11/19/19 13:14:00 EDT, Height, 89.2, kg, 06/19/19... Start Date: 11/10/20 Stop Date: 11/05/21 Status: Ordered Freestyle Lite Test Strips See Instructions, # 100 each, Refills 6, Tot. Refills 6, Maintenance, use as directed for Type 2 Diabetes Mellitus Test 3 times/day Instructions in Macanese, 11/10/20 9:41:00 EST, Duplicate rx-Original rx sent 06/23/20. Remaining refills sent., [place]... Start Date: 11/10/20 Stop Date: 06/08/21 Status: Ordered gabapentin 300 mg oral capsule 600 mg, Capsule, By Mouth, 12/04/20 9:00:00 EDT Start Date: 12/04/20 Stop Date: 12/04/20 Status: Completed gabapentin 300 mg oral capsule 600 mg, Capsule, By Mouth, 12/04/20 15:00:00 EDT Start Date: 12/04/20 Stop Date: 12/04/20 Status: Completed gabapentin 600 mg oral tablet 1 tablet = 600 mg, By Mouth, 3 times a day, [place]anese label, # 90 tablet, 5 Refills, Maintenance, 05/12/21 13:56:00 EDT, Tablet, [facility]., 168, cm, 11/19/19 13:14:00 EDT, Height, 89.2, kg, 06/19/19 1:03:00 EDT, Dry Weight Start Date: 05/12/21 Stop Date: 11/08/21 Status: Ordered Lac-Hydrin 12% lotion 1 application, Topically, 2 times a day, PRN Dry Skin, Apply and rub in well, # 400 Gm, 2 Refills, Maintenance, 11/13/20 9:08:00 EST, Lotion, [facility], [place]anese label, 1 application Topically 2 times a [...] PRN Pain , Moderate, Print instructions in ugandan wash hands thoroughly after application, # 50 Gm, 1 Refills, Maintenance, 11/25/20 14:45:00 EDT, Ointment, [facility], Partial fill upon patie... Start Date: 11/25/20 Status: Ordered lisinopril 10 mg oral tablet 10 mg, 1, tablet, By Mouth, Daily, # 30 tablet, Refills 0, Tot. Refills 0, Maintenance, 12/04/20 14:27:00 EDT, Route to Pharmacy Electronically, [facility], Partial fill upon patient request if the prescription is for a schedule II opioi... Start Date: 12/04/20 Status: Ordered metFORMIN 500 mg oral tablet, extended release See Instructions, Take 1000 mg (2 tabs) in the morning and 500 mg (1 tab) in the evening; with food; Macanese label, # 90 tablet, 5 Refills, Maintenance, 11/06/20 13:47:00 EST, [facility], 168, cm, 11/19/19 13:14:00 EDT, Height, 89.2, k... Start Date: 11/06/20 Status: Ordered montelukast 10 mg oral tablet 10 mg, 1, tablet, By Mouth, Daily, # 90 tablet, Refills 5, Tot. Refills 5, Maintenance, 12/20/19 10:09:00 EDT, Route to Pharmacy Electronically, [facility], 168, cm, 11/19/19 13:14:00EDT, Height, 89.2, kg, [...] 15:09:00 EST, Aerosol, Route to Pharmacy Electronically, [id number], [facility], 168, cm, 11/19/19 13:14:00... Start Date: 07/31/20 [...] Refills, Maintenance, 11/13/20 9:08:00 EST, ER Tablet, [facility]., Partial fill upon patient request if the [...] 12/23/20 14:46:00 EDT, 11/25/20 14:46:00 EDT, Cream, [facility]., Partial fill upon patient request if the prescription is... Start Date: 11/25/20 Stop Date: 12/23/20 Status: Ordered Tylenol 8 Hour 650 mg oral tablet, extended release 1 tablet = 650 mg, By Mouth, Every 8 hours, PRN Pain , Mild, Not to exceed 2000 mg/day., # 100 tablet, 2 Refills, Maintenance, 11/06/20 14:03:00 EST, ER Tablet, [facility]., [place] label, 168, cm, 11/19/19 13:14:00 EDT, Height, 89.2, k... Start Date: 11/06/20 Status: Ordered Vitamin D3 1000 intl units oral capsule 1 capsule = 1,000 International_Units, By Mouth, Daily, Macanese label please; with food, # 30 capsule, 5 Refills, Maintenance, 11/06/20 11:55:00 EST, Capsule, [facility] 168, cm, 11/19/19 13:14:00 EDT, Height, [...] ) severe(Confirmed) 2017 Active Palpitations(Confirmed) Active *BHN/BHCP/CP-Barbie [place] Hdpth-[phone]/[facility], active care coordination(Confirmed) Active Seizure-like activity(Confirmed) Active Steatosis of liver(Confirmed) Active Vasovagal syncope(Confirmed) Active Results Radiology Reports * Exam Date Time Procedure Performing Provider Status 12/02/20 6:57 AM Chest 2 Views Frontal and Lat Flako Sánchez; Auth (Verified) Notes: (Chest 2 Views Frontal and Lat) Reason For Exam: Pain;Other: RESULT: Chest 2 Views Frontal and Lat Chest 2 Views Frontal and Lat Hx of Present Illness: Pt states she has pain in her face, 8 10 head and neck x 2 days. Pt states when she breathes in, it hurts around her ribs on R side. Pt states she feels like something in pulling on my face, it feels numb. ; Reason: Other:; Pain; Clinical Question(s): Other:; Fracture, pneumothorax, pulmonary contusion COMPARISON: 04/08/2020. FINDINGS: LINES AND TUBES: None. LUNGS AND PLEURA: Clear lungs. Normal pulmonary vascularity. No pleural effusion. No pneumothorax. HEART, MEDIASTINUM AND ANGELO: Heart is normal in size. Normal upper mediastinal and hilar contour. BONES AND SOFT TISSUES: No acute abnormality. Mild degenerative endplate osteophyte formation in the thoracic spine. IMPRESSION: No acute abnormality. WSN: [id number] Ordering Physician: Allyson Mcgrath Dictated By: Dot Latif MD Dictated Date/Time: 12/02/20 7:32 am Reviewed By: Dot Latif MD Signed By: Dot Latif MD Signed Date/Time: 12/02/20 7:32 am Transcribed By: CESAR Transcribed Date/Time: 12/02/20 7:31 am Vital Signs Most recent to oldest [Reference Range]: 1 2 3 Height 163 cm (12/04/20 11:25 AM) 163 cm (12/03/20 2:29 PM) Weight 91 kg (12/03/20 2:29 PM) Oxygen Saturation [94-100 %] 94 % (12/04/20 11:25 AM) 98 % (12/04/20 7:00 AM) 97 % (12/03/20 11:34 PM) Pulse Rate [55-90 bpm] 65 bpm (12/04/20 11:25 AM) 65 bpm (12/04/20 7:00 AM) 67 bpm (12/03/20 11:34 PM) Body Mass Index [18.5-24.99] 34.25 *>HHI* (12/03/20 2:29 PM) Blood Pressure [90-138/55-84 mm Hg] 132/69mm Hg (12/04/20 11:25 AM) 119/71mm Hg (12/04/20 7:00 AM) 143/83mm Hg *H* (12/03/20 11:34 PM) Respiratory Rate [16-30 br/min] 18 br/min (12/04/20 3:14 PM) 16 br/min (12/04/20 11:25 AM) 18 br/min (12/04/20 10:06 AM) Temperature [96.8-100.4 DegF] 98 DegF (12/04/20 11:25 AM) 96.8 DegF (12/04/20 7:00 AM) 97 DegF (12/03/20 11:34 PM) Liters per Minute 1 L/min (12/04/20 11:25 AM) 1 L/min (12/04/20 7:00 AM) 0 L/min (12/03/20 11:34 PM) Mode of Delivery (Oxygen) Nasal cannula (12/04/20 11:25 AM) Nasal cannula (12/04/20 7:00 AM) Room air (3/25/21 11:34 PM) Blood pressure sites Arm, left (12/04/20 11:25 AM) Arm, left (12/04/20 7:00 AM) Arm, left (12/03/20 11:34 PM) Temperature Route Temporal (12/04/20 11:25 AM) Temporal (12/04/20 7:00 AM) Temporal (12/03/20 11:34 PM) Dry Weight 91 kg (12/03/20 2:29 PM) Social History Social History Type Response Smoking Status Never smoker entered on: 01/14/16 Sex Female
--- OUTSIDE RECORDS SUMMARY | 2023-07-02 18:47 | XMS_ITS | Continuity of Care Document ---
Author Name Unknown Organization [facility] Address [address] [place] [id number]- Care Team Providers Care Cane Piler Name Role Phone Vanessa Sharif DO Primary Care Physician Encounter [facility] [place] Date(s): 01/03/20 - 01/10/20 [facility] [address] [place] [id number]- [facility] Attending Physician: Liban SORIA, Evan Nielsen Admitting Physician: Tesfaye SORIA, Paul Dinh Allergies, Adverse Reactions, Alerts Substance Reaction Severity [...] Stop 12/24/20 11:35:00 EDT, 12/25/19 11:34:00 EDT, [facility] Start Date: 12/25/19 Stop Date: 12/24/20 Status: Ordered albuterol 0.083% inhalation solution 3 mL = 2.5 mg, Inhalation, Every 6 hours, PRN for wheezing, # 60 each, 0 Refills, Maintenance, 12/20/19 10:09:00 EDT, Solution, [facility], cm, 11/19/19 13:14:00 EDT, Height, [...] mg, By Mouth, Daily, please label in bulgarian. discontinue the atorvastatin, # 30 tablet, 5 Refills, Maintenance, 12/18/19 16:05:00 EDT, Tablet, [facility] 168, cm, 11/19/19 13:14:00 EDT, Height, [...] MANUEL, # 50 Gm, 0 Refills, Acute, [facility], 25, APLICAR A LA PIEL AL AREA AFECTADA DOS VECES AL MANUEL, 168, cm, 09/24/19 13:53:00 EST, Height, 89.2, kg, 06/19/19 1:03:00 EDT, Start Date: 10/23/19 Status: Ordered Claritin 10 mg oral tablet 10 mg, By Mouth, Daily, # 90 tablet, Refills 0, Tot. Refills 0, Maintenance, 12/18/19 14:20:00 EDT,Route to Pharmacy Electronically, [facility]., 168, cm, 11/19/19 13:14:00 EDT, Height, [...] NECESARIO, # 30 Gm, 0 Refills, Acute, [facility], 14, APLICAR A LA PIEL AL AREA AFECTADA (DE LA ERUPCION EN EL PIE DERECHO) D... Start Date: 10/23/19 Status: Ordered diclofenac 1% topical gel 1 application, Topically, 4 times a day, PRN for pain, not to exceed 8 grams/day/single joint of upper extremities, # 100 Gm, 0 Refills, Maintenance, 12/18/19 18:21:00 EDT, Gel, [facility]., 168, cm, 11/19/19 13:14:00 EDT, Height, 89.2,... Start Date: 12/18/19 Status: Ordered Flovent HFA 220 mcg/inh inhalation aerosol 1 puffs, Inhalation, 2 times a day, # 12 Gm, 3 Refills, Maintenance, 12/20/19 13:42:00 EDT, Aerosol, [facility]., 168, cm, 11/19/19 13:14:00 EDT, Height, 89.2, kg, 06/19/19 1:03:00 EDT, Dry Weight Start Date: 12/20/19 Status: Ordered Freestyle Lancets See Instructions, # 100 each, Refills 11, Tot. Refills 11, Maintenance, use as directed for Type 2 Diabetes Mellitus Test 3 times/day Instructions in Guamanian, 08/09/19 10:57:52 EST, Compound Start Date: 08/09/19 Stop Date: 08/03/20 Status: Ordered Freestyle Lite Test Strips See Instructions, # 100 each, Refills 11, Tot. Refills 11, Maintenance, use as directed for Type 2 Diabetes Mellitus Test 3 times/day Instructions in Guamanian, 08/09/19 10:57:52 EST, Compound Start Date: 08/09/19 Stop Date: 08/03/20 Status: Ordered gabapentin 600 mg oral tablet 1 tablet = 600 mg, By Mouth, 3 times a day, Guamanian label, # 270 tablet, 5 Refills, Maintenance, 11/19/19 13:56:00 EDT, Tablet, [facility]., 168, cm, 11/19/19 13:14:00 EDT, Height, 89.2, kg, 06/19/19 1:03:00 EDT, Dry Weight Start Date: 11/19/19 Stop Date: 05/12/21 Status: Ordered levothyroxine 125 mcg (0.125 mg) oral tablet 1 tablet = 125 mcg, By Mouth, Daily, Guamanian label, # 30 tablet, 5 Refills, Maintenance, 09/10/19 15:16:00 EST, Tablet, [facility] 168, cm, 09/10/19 13:44:00 EST, Height, 89.2, kg, 06/19/19 1:03:00 EDT, Dry Weight Start Date: 09/10/19 Status: Ordered Linzess 72 mcg oral capsule 0 Refills, Maintenance, 10/24/19 13:52:00 EST Start Date: 10/24/19 Status: Ordered lisinopril 30 mg oral tablet 1 tablet = 30 mg, By Mouth, Daily, dose increase, # 30 tablet, 11 Refills, Maintenance, 08/27/19 13:59:38 EST, [facility]., 168, cm, 08/20/19 13:32:17 EST, Height, 89.2, kg, 06/19/19 1:03:24 EDT, Dry Weight Start Date: 08/27/19 Status: Ordered metFORMIN 500 mg oral tablet, extended release See Instructions, Take 1000 mg (2 tabs) in the morning and 500 mg (1 tab) in the evening; with food; Guamanian label, # 90 tablet, 5 Refills, Maintenance, 12/25/19 14:51:00 EDT, [facility], 168, cm, 11/19/19 13:14:00 EDT, Height, [...] 12/20/19 10:09:00 EDT, Route to Pharmacy Electronically, [facility], 168, cm, 11/19/19 13:14:00EDT, Height, 89.2, [...] capsule = 40 mg, By Mouth, Daily, Guamanian label please, # 60 capsule, 2 Refills, Maintenance, 12/06/19 13:25:00 EDT, EC Capsule, [facility], please discontinue amoxicillin/metronidazole/lansoprazole combination, 168, cm, 11/19/19 13:... Start Date: 12/06/19 Stop Date: 03/05/20 Status: Ordered omeprazole 40 mg oral enteric coated capsule 2 capsule = 80 mg, By Mouth, Daily, via [facility], # 60 capsule, 0 Refills, Maintenance, 01/07/20 13:53:00 EDT, CR Capsule Start Date: 01/07/20 Status: Ordered ProAir HFA 90 mcg/inh inhalation aerosol with adapter 1, puffs, Inhalation, Every 4 hours, PRN, # 8.5 Gm, Refills 5, Tot. Refills 5, Maintenance, 12/20/19 10:09:00 EDT, Aerosol, Route to Pharmacy Electronically, [id number], [facility] 168, cm, 11/19/19 13:14:00... Start [...] 2 hours up to amaximum of 2; Guamanian label please, # 9 tablet, 0 Refills, Maintenance, 09/10/19 15:12:00 EST, Tablet, [facility] 168, cm, 09/10/19 13... Start Date: 09/10/19 Status: Ordered Vitamin D3 1000 intl units oral capsule 1 capsule = 1,000 International_Units, By Mouth, Daily, Guamanian label please; with food, # 30 capsule, 11 Refills, Maintenance, 12/08/19 10:59:00 EDT, Capsule, [facility] 168, cm, 11/19/19 13:14:00 EDT, [...] ) severe(Confirmed) 2017 Active Palpitations(Confirmed) Active *BHN/BHKRISTINE/Vasquez Guillen-[phone]/Health shelter, active care coordination(Confirmed) Active Seizure-like activity(Confirmed) Active Steatosis of liver(Confirmed) Active Vasovagal syncope(Confirmed) Active Social History Social History Type Response Smoking Status Never smoker entered on: 01/14/16 Sex Female
--- OUTSIDE RECORDS SUMMARY | 2023-07-02 18:48 | XMS_ITS | Continuity of Care Document ---
Author Name Unknown Organization [facility]3] Adult Medicine Address [address] [place] [address]- Care Team Providers Care Tire Service Technician Name Role Phone Vanessa Sharif DO Primary Care Physician Encounter [facility] Date(s): 04/07/20 - 05/07/20 [facility] Adult Medicine [address] [place] [id number]- [facility] Allergies, Adverse Reactions, Alerts Substance Reaction [...] 06/05/18 Not Given Patient Refuses Medications acetaminophen 650 mg oral tablet, extended release 1 tablet = 650 mg, By Mouth, Every 8 hours, for 30 days, Not to exceed 2000 mg/day. Senegalese label.,# 90 tablet, 2 Refills, Acute 06/09/20 10:37:00 EDT, 03/11/20 10:37:00 EDT, ER Tablet, [facility]., To replace prior Tylenol Rx., 168, c... Start Date: 03/11/20 Stop Date: 06/09/20 Status: Ordered albuterol 0.083% inhalation solution 3 mL = 2.5 mg, Inhalation, Every 6 hours, PRN for wheezing, # 60 each, 0 Refills, Maintenance, 12/20/19 10:09:00 EDT, Solution, [facility]., 168, cm, 11/19/19 13:14:00 EDT, [...] mg, By Mouth, Daily, please label in romanian. discontinue the atorvastatin, # 30 tablet, 5 Refills, Maintenance, 12/18/19 16:05:00 EDT, Tablet, [facility], 168, cm, 11/19/19 13:14:00 EDT, Height, [...] MANUEL, # 50 Gm, 0 Refills, Acute, [facility], 25, APLICAR A LA PIEL AL AREA AFECTADA DOS VECES AL MANUEL, 168, cm, 09/24/19 13:53:00 EST, Height, 89.2, kg, 06/19/19 1:03:00 EDT, Start Date: 10/23/19 Status: Ordered Claritin 10 mg oral tablet 10 mg, By Mouth, Daily, # 90 tablet, Refills 0, Tot. Refills 0, Maintenance, 04/01/20 14:09:00 EDT,Route to Pharmacy Electronically, [facility], 168, cm, 11/19/19 13:14:00 EDT, Height, 89.2, kg, 06/19/19 1:03:00 EDT, Dry Weight Start Date: 04/01/20 Stop Date: 06/30/20 Status: Ordered clonazePAM 0.5 mg oral tablet [...] NECESARIO, # 30 Gm, 0 Refills, Acute, [facility], 14, APLICAR A LA PIEL AL AREA AFECTADA (DE LA ERUPCION EN EL PIE DERECHO) D... Start Date: 10/23/19 Status: Ordered diclofenac 1% topical gel 1 application, Topically, 4 times a day, PRN for pain, not to exceed 8 grams/day/single joint of upper extremities, # 100 Gm, 0 Refills, Maintenance, 01/19/20 19:54:00 EDT, Gel, [facility], 168, cm, 11/19/19 13:14:00 EDT, Height, 89.2,... Start Date: 01/19/20 Status: Ordered Flovent HFA 220 mcg/inh inhalation aerosol 1 puffs, Inhalation, 2 times a day, # 12 Gm, 3 Refills, Maintenance, 12/20/19 13:42:00 EDT, Aerosol, [facility], 168, cm, 11/19/19 13:14:00 EDT, Height, 89.2, kg, 06/19/19 1:03:00 EDT, Dry Weight Start Date: 12/20/19 Status: Ordered Freestyle Lancets See Instructions, # 100 each, Refills 11, Tot. Refills 11, Maintenance, use as directed for Type 2 Diabetes Mellitus Test 3 times/day Instructions in Senegalese, 08/09/19 10:57:52 EST, Compound Start Date: 08/09/19 Stop Date: 08/03/20 Status: Ordered Freestyle Lite Test Strips See Instructions, # 100 each, Refills 11, Tot. Refills 11, Maintenance, use as directed for Type 2 Diabetes Mellitus Test 3 times/day Instructions in Senegalese, 08/09/19 10:57:52 EST, Compound Start Date: 08/09/19 Stop Date: 08/03/20 Status: Ordered gabapentin 600 mg oral tablet 1 tablet = 600 mg, By Mouth, 3 times a day, Senegalese label, # 270 tablet, 5 Refills, Maintenance, 11/19/19 13:56:00 EDT, Tablet, [facility] 168, cm, 11/19/19 13:14:00 EDT, Height, 89.2, kg, 06/19/19 1:03:00 EDT, Dry Weight Start Date: 11/19/19 Stop Date: 05/12/21 Status: Ordered levothyroxine 125 mcg (0.125 mg) oral tablet 1 tablet = 125 mcg, By Mouth, Daily, Senegalese label, # 30 tablet, 5 Refills, Maintenance, [...] (1 tab) in the evening; with food; Senegalese label, # 90 tablet, 5 Refills, Maintenance, 12/25/19 14:51:00 EDT, [facility], 168, cm, 11/19/19 13:14:00 EDT, Height, [...] 12/20/19 10:09:00 EDT, Route to Pharmacy Electronically, [facility], 168, cm, 11/19/19 13:14:00EDT, Height, 89.2, [...] capsule = 40 mg, By Mouth, Daily, Senegalese label please, # 60 capsule, 2 Refills, Maintenance, 12/06/19 13:25:00 EDT, EC Capsule, [facility], please discontinue amoxicillin/metronidazole/lansoprazole combination, 168, cm, 11/19/19 13:... Start Date: 12/06/19 Stop Date: 03/05/20 Status: Ordered omeprazole 40 mg oral enteric coated capsule 2 capsule = 80 mg, By Mouth, Daily, via [facility], # 60 capsule, 0 Refills, Maintenance, 01/07/20 13:53:00 EDT, CR Capsule Start Date: 01/07/20 Status: Ordered ProAir HFA 90 mcg/inh inhalation aerosol with adapter 1, puffs, Inhalation, Every 4 hours, PRN, # 8.5 Gm, Refills 5, Tot. Refills 5, Maintenance, 12/20/19 10:09:00 EDT, Aerosol, Route to Pharmacy Electronically, [id number], [facility], 168, cm, 11/19/19 13:14:00... Start Date: [...] 2 hours up to amaximum of 2; Senegalese label please, # 9 tablet, 0 Refills, Maintenance, 09/10/19 15:12:00 EST, Tablet, [facility], 168, cm, 09/10/19 13... Start Date: 09/10/19 Status: Ordered Vitamin D3 1000 intl units oral capsule 1 capsule = 1,000 International_Units, By Mouth, Daily, Senegalese label please; with food, # 30 capsule, [...] ) severe(Confirmed) 2017 Active Palpitations(Confirmed) Active *BHN/BHKRISTINE/Vasquez Guillen-[phone]/Health [facility], active care coordination(Confirmed) Active Seizure-like activity(Confirmed) Active Steatosis of liver(Confirmed) Active Vasovagal syncope(Confirmed) Active Social History Social History Type Response Smoking Status Never smoker entered on: 01/14/16 Sex Female
--- OUTSIDE RECORDS SUMMARY | 2023-07-02 18:48 | XMS_ITS | Continuity of Care Document ---
Author Name Unknown Organization [facility] ter Address [address] [place] [id number]- Care Team Providers Care Heel Breaster Name Role Phone Vanessa Sharif DO Primary Care Physician [place] [facility] [place] - 01/01/[address] [address]- [facility] Encounter Diagnosis Vomiting(Final) - 01/01/20 Discharge Disposition: A-D/C Home Attending Physician: Alex Crowe MD Admitting Physician: Alex Crowe MD Referring Physician: Not on Staff, Referring [...] Stop 12/24/20 11:35:00 EDT, 12/25/19 11:34:00 EDT, [facility] Start Date: 12/25/19 Stop Date: 12/24/20 Status: Ordered albuterol 0.083% inhalation solution 3 mL = 2.5 mg, Inhalation, Every 6 hours, PRN for wheezing, # 60 each, 0 Refills, Maintenance, 12/20/19 10:09:00 EDT, Solution, [facility]., 168, cm, 11/19/19 13:14:00 EDT, Height, [...] mg, By Mouth, Daily, please label in wallisian. discontinue the atorvastatin, # 30 tablet, 5 Refills, Maintenance, 12/18/19 16:05:00 EDT, Tablet, [facility], 168, cm, 11/19/19 13:14:00 EDT, Height, [...] MANUEL, # 50 Gm, 0 Refills, Acute, [facility], 25, APLICAR A LA PIEL AL AREA AFECTADA DOS VECES AL MANUEL, 168, cm, 09/24/19 13:53:00 EST, Height, 89.2, kg, 06/19/19 1:03:00 EDT, Start Date: 10/23/19 Status: Ordered Claritin 10 mg oral tablet 10 mg, By Mouth, Daily, # 90 tablet, Refills 0, Tot. Refills 0, Maintenance, 12/18/19 14:20:00 EDT,Route to Pharmacy Electronically, [facility], 168, cm, 11/19/19 13:14:00 EDT, Height, [...] NECESARIO, # 30 Gm, 0 Refills, Acute, [facility], 14, APLICAR A LA PIEL AL AREA AFECTADA (DE LA ERUPCION EN EL PIE DERECHO) D..Sam Start Date: 10/23/19 Status: Ordered diclofenac 1% topical gel 1 application, Topically, 4 times a day, PRN for pain, not to exceed 8 grams/day/single joint of upper extremities, # 100 Gm, 0 Refills, Maintenance, 12/18/19 18:21:00 EDT, Gel, [facility], 168, cm, 11/19/19 13:14:00 EDT, Height, 89.2,... [...] 3 Refills, Maintenance, 12/20/19 13:42:00 EDT, Aerosol, [facility], cm, 11/19/19 13:14:00 EDT, Height, 89.2, kg, 06/19/19 1:03:00 EDT, Dry Weight Start Date: 12/20/19 Status: Ordered Freestyle Lancets See Instructions, # 100 each, Refills 11, Tot. Refills 11, Maintenance, use as directed for Type 2 Diabetes Mellitus Test 3 times/day Instructions in Rwandan, 08/09/19 10:57:52 EST, Compound Start Date: 08/09/19 Stop Date: 08/03/20 Status: Ordered Freestyle Lite Test Strips See Instructions, # 100 each, Refills 11, Tot. Refills 11, Maintenance, use as directed for Type 2 Diabetes Mellitus Test 3 times/day Instructions in Rwandan, 08/09/19 10:57:52 EST, Compound Start Date: 08/09/19 Stop Date: 08/03/20 Status: Ordered gabapentin 600 mg oral tablet 1 tablet = 600 mg, By Mouth, 3 times a day, Rwandan label, # 270 tablet, 5 Refills, Maintenance, 11/19/19 13:56:00 EDT, Tablet, [facility] 168, cm, 11/19/19 13:14:00 EDT, Height, 89.2, kg, 06/19/19 1:03:00 EDT, Dry Weight Start Date: 11/19/19 Stop Date: 05/12/21 Status: Ordered levothyroxine 125 mcg (0.125 mg) oral tablet 1 tablet = 125 mcg, By Mouth, Daily, Rwandan label, # 30 tablet, 5 Refills, Maintenance, 09/10/19 15:16:00 EST, Tablet, [facility] 168, cm, 09/10/19 13:44:00 EST, Height, 89.2, kg, 06/19/19 1:03:00 EDT, Dry Weight Start Date: 09/10/19 Status: Ordered Linzess 72 mcg oral capsule 0 Refills, Maintenance, 10/24/19 13:52:00 EST Start Date: 10/24/19 Status: Ordered lisinopril 30 mg oral tablet 1 tablet = 30 mg, By Mouth, Daily, dose increase, # 30 tablet, 11 Refills, Maintenance, 08/27/19 13:59:38 EST, [facility] 168, cm, 08/20/19 13:32:17 EST, Height, 89.2, kg, 06/19/19 1:03:24 EDT, Dry Weight Start Date: 08/27/19 Status: Ordered metFORMIN 500 mg oral tablet, extended release See Instructions, Take 1000 mg (2 tabs) in the morning and 500 mg (1 tab) in the evening; with food; Rwandan label, # 90 tablet, 5 Refills, Maintenance, 12/25/19 14:51:00 EDT, [facility], 168, cm, 11/19/19 13:14:00 EDT, Height, [...] 12/20/19 10:09:00 EDT, Route to Pharmacy Electronically, [facility] 168, cm, 11/19/19 13:14:00EDT, Height, 89.2, [...] capsule = 40 mg, By Mouth, Daily, Rwandan label please, # 60 capsule, 2 Refills, Maintenance, 12/06/19 13:25:00 EDT, EC Capsule, [facility], please discontinue amoxicillin/metronidazole/lansoprazole combination, 168, , 11/19/19 13:... Start Date: 12/06/19 Stop Date: 03/05/20 Status: Ordered ProAir HFA 90 mcg/inh inhalation aerosol with adapter 1, puffs, Inhalation, Every 4 hours, PRN, # 8.5 Gm, Refills 5, Tot. Refills 5, Maintenance, 12/20/19 10:09:00 EDT, Aerosol, Route to Pharmacy Electronically, [id number], [facility], 168, , 11/19/19 13:14:00... Start Date: 12/20/19 [...] 2 hours up to amaximum of 2; Rwandan label please, # 9 tablet, 0 Refills, Maintenance, 09/10/19 15:12:00 EST, Tablet, [facility], 168, , 09/10/19 13... Start Date: 09/10/19 Status: Ordered Vitamin D3 1000 intl units oral capsule 1 capsule = 1,000 International_Units, By Mouth, Daily, Rwandan label please; with food, # 30 capsule, 11 Refills, Maintenance, 12/08/19 10:59:00 EDT, Capsule, [facility] 168, cm, 11/19/19 13:14:00 EDT, Height, 89.2, kg, 06/19/19 1:03... Start Date: 12/08/19 Stop Date: 12/02/20 Status: Ordered Zofran 4 mg oral tablet 1 tablet = 4 mg, By Mouth, Every 8 hours, PRN Nausea & Vomiting, for 2 days, # 4 tablet, 0 Refills, Acute 01/03/20 17:17:00 EDT, 01/01/20 17:17:00 EDT, Tablet Start Date: 01/01/20 Stop Date: 01/03/20 Status: Ordered Problem List Condition Effective Dates Status Health Status Inform ant Chronic pelvic pain(Confirmed) Active Chronic renal insufficiency(Confirmed) Active Diabetes(Confirmed) Active Fibromyalgia(Confirmed) Active Hypertension(Confirmed) Active Hypertriglyceridemia; mild(Confirmed) Active Hypothyroid(Confirmed) Active Major depression, chronic(Confirmed) Active KIRAN (obstructive sleep apnea ) severe(Confirmed) 2017 Active Palpitations(Confirmed) Active *BHN/CP/Vasquez Guillen-[phone]/Health senior care, active care coordination(Confirmed) Active Seizure-like activity(Confirmed) Active Steatosis of liver(Confirmed) Active Vasovagal syncope(Confirmed) Active Results Orders for Microbiology Reports Name Date Group A Strep Screen and Culture 01/01/20 Microbiology Reports TEST:Group A Strep Screen and Culture STATUS:Unauthenticated BODY SITE: SOURCE:THROAT COLLECTED DATE/TIME:01/01/20 1:53 PM Group A Strep Screen and Culture SPECIMEN DESCRIPTION : THROAT SWAB SPECIAL REQUESTS : NONE DIRECT EXAM : RAPID GROUP A RESULT IS NEGATIVE, REFER TO CULTURE RESULT. REPORT STATUS : PRELIMINARY REPORT Radiology Reports * Exam Date Time Procedure Performing Provider Status 01/01/20 1:43 PM Chest Portable Yen Taylor; Winsome suarez (Verified) Notes: (Chest Portable) Reason For Exam: Shortness of Breath RESULT: Chest Portable Examination: Portable chest performed on 01/01/20 at 12:44 pm. History: Abdominal pain. Findings: A frontal view of the chest is compared to a prior study dated 06/18/19. The cardiac and mediastinal silhouettes are within normal limits. There is subtle increased densitywithin the right upper lobe. The lungs are otherwise clear. Osteophyte formation within the thoracic spine is noted. Impression: There is subtle opacity in the right upper lobe which could represent an infiltrate in the appropriate clinical scenario. WSN: [id number] Ordering Physician: Faustino Veras Dictated By: Kacy Santo MD Dictated Date/Time: 01/01/20 1:49 pm Reviewed By: Kacy Santo MD Signed By: Kacy Santo MD Signed Date/Time: 01/01/20 1:49 pm Transcribed By: CESAR Transcribed Date/Time: 01/01/20 1:46 pm Vital Signs Most recent to oldest [Reference Range]: 1 2 Oxygen Saturation [94-100 %] 93 % *L* (01/01/20 11:35 AM) 98 % (01/01/20 10:13 AM) Pulse Rate [55-90 bpm] 102 bpm *H* (01/01/20 11:35 AM) 110 bpm *H* (01/01/20 10:13 AM) Blood Pressure [90-138/55-84 mm Hg] 118/ 68mm Hg (01/01/20 11:35 AM) Temperature [96.8-100.4 DegF] 98.7 DegF (01/01/20 11:35 AM) Mode of Delivery (Oxygen) Room air (01/01/20 11:35 AM) Room air (01/01/20 10:13 AM) Temperature Route Oral (01/01/20 11:35 AM) Social History Social History Type Response Smoking Status Never smoker entered on: 01/14/16 Sex Female
--- OUTSIDE RECORDS SUMMARY | 2023-07-02 18:48 | XMS_ITS | Continuity of Care Document ---
Author Name Unknown Organization [facility] Address [address] [place] [id number]- Care Team Providers Care Bag Making Machine Operator Name Role Phone Layla Chung MD Primary Care Physician En[place] [facility] [place]): 03/28/23 - 05/17/23 [facility] [address] [place] [id number]- Encounter Diagnosis Hypertension(Discharge Diagnosis) - 04/13/23 Attending Physician: Paul Carlin MD Admitting Physician: Paul Carlin MD Allergies, Adverse Reactions, Alerts Substance Reaction Severity Status penicillin itchy/rash/blisters Active amLODIPine ankle edema Active aspirin rash/itchy Active Percocet 5/325 1 [...] opioid drug. Start Date: 02/02/23 Status: Ordered Alcohol Wipes See Instructions, # 100 each, Refills 11, Tot. Refills 11, Maintenance, dx dm type 2 - E11.65 INSULIN DEPENDENT, CJHECK BS 3 X PER DAY, 08/09/19 12:59:00 EST, Compound Start Date: 08/09/19 Status: Ordered atorvastatin 40 mg oral tablet 1 tablet = 40 mg, By Mouth, Daily, please label in urdu., # 30 tablet, 11 Refills, Maintenance, 06/23/20 20:27:00 EDT, Tablet, [facility], 168, cm, 11/19/19 13:14:00 EDT, Height, [...] 1, tablet, By Mouth, Daily, LABEL IN [place], # 90 tablet, Refills 1, Tot. Refills 1, Maintenance, 04/04/23 15:37:00 EDT, Route to Pharmacy Electronically, [facility], Partial fill upon patient request if [...] Diabetes Mellitus Test 3 times/day Instructions in Israeli, 11/10/20 9:37:00 EST, Compound, 168, cm,11/19/19 13:14:00 EDT, Height, 89.2, kg, 06/19/19... Start Date: 11/10/20 Stop Date: 11/05/21 Status: Ordered Freestyle Lite Test Strips See Instructions, # 100 each, Refills 6, Tot. Refills 6, Maintenance, use as directed for Type 2 Diabetes Mellitus Test 3 times/day Instructions in Israeli, 11/10/20 9:41:00 EST, Duplicate rx-Original rx sent 06/23/20. Remaining refills sent., [place]... Start Date: 11/10/20 Stop Date: 06/08/21 Status: Ordered gabapentin 300 mg oral capsule TAKE 1 CAPSULE BY MOUTH THREE TIMES DAILY Start Date: 02/02/23 Status: Ordered levothyroxine 125 mcg (0.125 mg) oral tablet 1 tablet = 125 mcg, By Mouth, Daily, # 90 tablet, 1 Refills, Maintenance, 02/03/23 6:24:00 EDT, Tablet, [facility]., Partial fill upon patient request if the prescription is for a schedule II opioid drug., 163, cm, 01/13/23 15:11:00 EDT... Start Date: 02/03/23 Stop Date: 08/02/23 Status: Ordered lisinopril 40 mg oral tablet 1 tablet = 40 mg, By Mouth, Daily, Increased dose from 20mg to 40mg qhs. LABEL IN [place], # 90 tablet, 1 Refills, Maintenance, 03/21/23 9:26:00 EDT, Tablet, [facility] Partial fill upon patient request if the prescription is for a sc... Start Date: 03/21/23 Stop Date: 09/17/23 Status: Ordered LORazepam 0.5 mg oral tablet TAKE 1 TABLET BY MOUTH TWICE A DAY NEEDED FOR ANXIETY- Start Date: 02/02/23 Status: Ordered MetFORMIN (Eqv-Glucophage XR) 500 mg oral tablet, extended release See Instructions, TOME 2 TABS 2 VECES AL MANUEL, # 360 tablet, 1 Refills, Maintenance, 05/16/23 14:59:00 EDT, [facility], 163, cm, 03/21/23 9:07:00 EDT, Height Start Date: 05/16/23 Status: Ordered mirtazapine 15 mg oral tablet TAKE 1 TABLET BY MOUTH AT BEDTIME Start Date: 02/02/23 Status: Ordered omeprazole 20 mg oral enteric coated capsule See Instructions, ULYSSES 1 CAPSULA POR LA BOCA CADA MANUEL, # 90 capsule, 1 Refills, Maintenance, 05/16/23 14:40:00 EDT, [facility], 163, cm, 03/21/23 9:07:00 EDT, Height Start Date: 05/16/23 Status: Ordered Preparation H 0.25% rectal suppository See Instructions, To use daily PRN for hemorrhoidal pain, # 10 supp, 0 Refills, Maintenance, 03/21/23 9:41:00 EDT, [facility], Partial fill upon patient request if the prescription isfor a schedule II opioid drug., To use daily PRN fo... Start Date: 03/21/23 Status: Ordered SUMAtriptan 50 mg oral tablet See Instructions, 1 TABLETA POR LA BOCA CADA MANUEL CUANDO SEA NECESARIO PARA DOLOR DE LA SD PUEDEREPETIR TAMIR VEZ EN 2 HORAS MILAGROS DE 2 TABLETAS NO USAR MAS DE 10 DYE, # 9 tablet, 1 Refills, Maintenance, 05/16/23 14:40:00 EDT, [facility]... Start Date: 05/16/23 Status: Ordered Ventolin HFA 108 mcg/inh inhalation aerosol with adapter 2 puffs, Inhalation, 4 times a day, PRN NEEDED FOR WHEEZING, # 18 Gm, 1 Refills, Maintenance, 05/16/23 14:40:00 EDT, [facility], 163, cm, 03/21/23 9:07:00 EDT, Height Start Date: 05/16/23 Status: Ordered Problem List Condition Confirmation Course [...] Confirmed 2017 Active Palpitations Confirmed Active *BHN/BHCP/Patricia Torrea [id number]-[phone]/[facility], active care coordination Confirmed Active Colonic polyp Confirmed Active Seizure-like activity Confirmed Active Steatosis of liver Confirmed Active Vasovagal syncope Confirmed Active 1Problem added by Discern Expert Diagnosis Diagnosis Type Effective Dates Health Status Cl inical Service Informant Hypertension Discharge Diagnosis 04/13/23 Social History Social History Type Response Smoking Status Never smoker entered on: 01/14/16 Sex Female Patient Care team information Care Team Personnel Name: Germania Kelly RN Position: [facility] RN Member Role: Primary Care Nurse Name: Shelly Yo RN Position: [facility] SN RN Member Role: Primary Care Nurse Name: Layla Chung MD Position: [facility] Physician - Primary Care Member Role: PCP Address: Address: [address] [place] [address]- Name: Charis Schmitt RN Position: S RN Member Role: Primary Care Nurse Name: Flaca Roe RN Position: [facility] RN Member Role: Primary Care Nurse Care Team Related Persons Name: MIS HARVEY Address: home [address] [place] [address] Name: ADRIAN HARVEY Address: [place] [address] Name: JACQUELINE HARVEY Address: home [address] [address]
--- OUTSIDE RECORDS SUMMARY | 2023-07-02 18:48 | XMS_ITS | Continuity of Care Document ---
Author Name Unknown Organization [facility] Address [address] [place] [address]- Care Team Providers Care Sheet Metal Supervisor Name Role Phone Vanessa Sharif DO Primary Care Physician Encounter [facility] [place] Date(s): 12/07/20 - 01/06/[address] [address] Attending Physician: AdmSilvino hicks Admitting Physician: AdmtrSilvino Referring Physician: Admtr, Ar8 Allergies, Adverse Reactions, Alerts Substance Reaction Severity [...] 0 Refills, Maintenance, 12/20/19 10:09:00 EDT, [facility] 168, cm, 11/19/19 13:14:00 EDT, Height, [...] mg, By Mouth, Daily, please label in haitian., # 30 tablet, 11 Refills, Maintenance, 06/23/20 20:27:00 EDT, Tablet, [facility], 168, cm, 11/19/19 13:14:00 EDT, Height, [...] PRN for dry skin, Print instructions in haitian to affected area, # 454 Gm, 0 Refills, Maintenance, 11/25/20 14:30:00 EDT, Cream, [facility], Partial fill upon patient request if the prescripti... Start Date: 11/25/20 Status: Ordered Claritin 10 mg oral tablet 10 mg, By Mouth, Daily, # 90 tablet, Refills 0, Tot. Refills 0, Maintenance, 06/23/20 9:15:00 EDT, Route to Pharmacy Electronically, [facility], 168, cm, 11/19/19 13:14:00 EDT, Height, [...] 2 Refills, Maintenance, 11/13/20 9:14:00 EST, Gel, [facility] [place] label, 168, cm, 11/13/20 8:37:00 EST,... Start Date: 11/13/20 Status: Ordered Freestyle Lancets See Instructions, # 100 each, Refills 11, Tot. Refills 11, Maintenance, use as directed for Type 2 Diabetes Mellitus Test 3 times/day Instructions in [place] Citizen, 11/10/20 9:37:00 EST, Compound, 168, cm,11/19/19 13:14:00 EDT, Height, 89.2, kg, 06/19/19... Start Date: 11/10/20 Stop Date: 11/05/21 Status: Ordered Freestyle Lite Test Strips See Instructions, # 100 each, Refills 6, Tot. Refills 6, Maintenance, use as directed for Type 2 Diabetes Mellitus Test 3 times/day Instructions in [place] Citizen, 11/10/20 9:41:00 EST, Duplicate rx-Original rx sent 06/23/20. Remaining refills sent., [place]... Start Date: 11/10/20 Stop Date: 06/08/21 Status: Ordered gabapentin 600 mg oral tablet 1 tablet = 600 mg, By Mouth, 3 times a day, [place] label, # 90 tablet, 5 Refills, Maintenance, 05/12/21 13:56:00 EDT, Tablet, [facility]., 168, cm, 11/19/19 13:14:00 EDT, Height, 89.2, kg, 06/19/19 1:03:00 EDT, Dry Weight Start Date: 05/12/21 Stop Date: 11/08/21 Status: Ordered Lac-Hydrin 12% lotion 1 application, Topically, 2 times a day, PRN Dry Skin, Apply and rub in well, # 400 Gm, 2 Refills, Maintenance, 11/13/20 9:08:00 EST, Lotion, [facility], [place] label, 1 application Topically 2 times a [...] PRN Pain , Moderate, Print instructions in haitian wash hands thoroughly after application, # 50 Gm, 1 Refills, Maintenance, 11/25/20 14:45:00 EDT, Ointment, [facility], Partial fill upon patie... Start Date: 11/25/20 Status: Ordered lisinopril 10 mg oral tablet 10 mg, 1, tablet, By Mouth, Daily, # 30 tablet, Refills 0, Tot. Refills 0, Maintenance, 12/04/20 14:27:00 EDT, Route to Pharmacy Electronically, [facility], Partial fill upon patient request if the prescription is for a schedule II opioi... Start Date: 12/04/20 Status: Ordered metFORMIN 500 mg oral tablet, extended release See Instructions, Take 1000 mg (2 tabs) in the morning and 500 mg (1 tab) in the evening; with food; [place] label, # 90 tablet, 5 Refills, Maintenance, 11/06/20 13:47:00 EST, [facility]., 168, cm, 11/19/19 13:14:00 EDT, Height, 89.2, k... Start Date: 11/06/20 Status: Ordered montelukast 10 mg oral tablet 10 mg, 1, tablet, By Mouth, Daily, # 90 tablet, Refills 5, Tot. Refills 5, Maintenance, 12/20/19 10:09:00 EDT, Route to Pharmacy Electronically, [facility], 168, cm, 11/19/19 13:14:00EDT, Height, 89.2, [...] 15:09:00 EST, Aerosol, Route to Pharmacy Electronically, [id number], [facility], 168, cm, 11/19/19 13:14:00... Start Date: [...] 11/13/20 9:08:00 EST, ER Tablet, [facility], Partial fill upon patient request if [...] Refills, Maintenance, 11/06/20 14:03:00 EST, ER Tablet, [facility]., [place] label, 168, cm, 11/19/19 13:14:00 EDT, Height, 89.2, k... Start Date: 11/06/20 Status: Ordered Vitamin D3 1000 intl units oral capsule 1 capsule = 1,000 International_Units, By Mouth, Daily, [place] label please; with food, # 30 capsule, 5 Refills, Maintenance, 11/06/20 11:55:00 EST, Capsule, [facility]., 168, cm, 11/19/19 13:14:00 EDT, Height, 89.2, [...] ) severe(Confirmed) 2017 Active Palpitations(Confirmed) Active *BHN/BHCP/Lisa Denney-[phone]/[facility], active care coordination(Confirmed) Active Seizure-like activity(Confirmed) Active Steatosis of liver(Confirmed) Active Vasovagal syncope(Confirmed) Active Social History Social History Type Response Smoking Status Never smoker entered on: 01/14/16 Sex Female
--- OUTSIDE RECORDS SUMMARY | 2023-07-02 18:48 | XMS_ITS | Continuity of Care Document ---
Author Name Unknown Organization [facility] Address [address] [place] [address]- Care Team Providers Care Sales And Marketing Professional Name Role Phone Lotus Lott Primary Care Physician Encounter [facility] [place] Date(s): 09/14/22 - 10/14/[address] [address]- Attending Physician: Silvino Vance Admitting Physician: Silvino [...] 0 Refills, Maintenance, 12/20/19 10:09:00 EDT, Solution, [facility] 168, cm, 11/19/19 13:14:00 EDT, Height, [...] mg, By Mouth, Daily, please label in belgian., # 30 tablet, 11 Refills, Maintenance, 06/23/20 20:27:00 EDT, Tablet, [facility], 168, cm, 11/19/19 13:14:00 EDT, [...] PRN for dry skin, Print instructions in belgian to affected area, # 454 Gm, 0 Refills, Maintenance, 11/25/20 14:30:00 EDT, Cream, [facility], Partial fill upon patient request if the prescripti... Start Date: 11/25/20 Status: Ordered Claritin 10 mg oral tablet 10 mg, By Mouth, Daily, # 90 tablet, Refills 0, Tot. Refills 0, Maintenance, 06/23/20 9:15:00 EDT, Route to Pharmacy Electronically, [facility], 168, cm, 11/19/19 13:14:00 EDT, [...] 2 Refills, Maintenance, 11/13/20 9:14:00 EST, Gel, [facility] [place] label, 168, cm, 11/13/20 8:37:00 EST,... Start Date: 11/13/20 Status: Ordered Freestyle Lancets See Instructions, # 100 each, Refills 11, Tot. Refills 11, Maintenance, use as directed for Type 2 Diabetes Mellitus Test 3 times/day Instructions in [place]gas[place], 11/10/20 9:37:00 EST, Compound, 168, cm,11/19/19 13:14:00 EDT, Height, 89.2, kg, 06/19/19... Start Date: 11/10/20 Stop Date: 11/05/21 Status: Ordered Freestyle Lite Test Strips See Instructions, # 100 each, Refills 6, Tot. Refills 6, Maintenance, use as directed for Type 2 Diabetes Mellitus Test 3 times/day Instructions in [place]gas[place], 11/10/20 9:41:00 EST, Duplicate rx-Original rx sent 06/23/20. Remaining refills sent., [place]... Start Date: 11/10/20 Stop Date: 06/08/21 Status: Ordered gabapentin 600 mg oral tablet 1 tablet = 600 mg, By Mouth, 3 times a day, [place] label, # 90 tablet, 5 Refills, Maintenance, 05/12/21 13:56:00 EDT, Tablet, [facility]., 168, cm, 11/19/19 13:14:00 EDT, Height, 89.2, kg, 06/19/19 1:03:00 EDT, Dry Weight Start Date: 05/12/21 Stop Date: 11/08/21 Status: Ordered Lac-Hydrin 12% lotion 1 application, Topically, 2 times a day, PRN Dry Skin, Apply and rub in well, # 400 Gm, 2 Refills, Maintenance, 11/13/20 9:08:00 EST, Lotion, [facility], [place] label, 1 application Topically 2 times a [...] PRN Pain , Moderate, Print instructions in belgian wash hands thoroughly after application, # 50 Gm, 1 Refills, Maintenance, 11/25/20 14:45:00 EDT, Ointment, [facility], Partial fill upon patie... Start Date: 11/25/20 Status: Ordered lisinopril 10 mg oral tablet 10 mg, 1, tablet, By Mouth, Daily, # 30 tablet, Refills 0, Tot. Refills 0, Maintenance, 12/04/20 14:27:00 EDT, Route to Pharmacy Electronically, [facility], Partial fill upon patient request if the prescription is for a schedule II opioi... Start Date: 12/04/20 Status: Ordered Metamucil 3.4 gm/5.2 gm oral powder for reconstitution = 3.4 Gm, By Mouth, 3 times a day, PRN as needed for constipation, # 1,042 Gm, 0 Refills, Acute 04/20/23 13:53:00 EDT, 04/19/22 13:51:00 EDT, REC Powder, [facility]/pharmacy #[id number], Partial fill upon patientrequest if the prescription is for a schedule II op... Start Date: 04/19/22 Stop Date: 04/20/23 Status: Ordered metFORMIN 500 mg oral tablet, extended release See Instructions, Take 1000 mg (2 tabs) in the morning and 500 mg (1 tab) in the evening; with food; [place] label, # 90 tablet, 5 Refills, Maintenance, 11/06/20 13:47:00 EST, [facility], 168, cm, 11/19/19 13:14:00 EDT, Height, 89.2, k... Start Date: 11/06/20 Status: Ordered montelukast 10 mg oral tablet 10 mg, 1, tablet, By Mouth, Daily, # 90 tablet, Refills 5, Tot. Refills 5, Maintenance, 12/20/19 10:09:00 EDT, Route to Pharmacy Electronically, [facility], 168, cm, 11/19/19 13:14:00EDT, Height, 89.2, kg, 06/19/19 1:03:00 EDT, Dry We... Start Date: 12/20/19 Stop Date: 06/17/20 Status: Ordered omeprazole 40 mg oral enteric coated capsule 1 capsule = 40 mg, By Mouth, 2 times a day, Maintenance, 12/02/20 15:36:00 EDT, EC Capsule, Partialfill upon patient request if the prescription is for a schedule II opioid drug. Start Date: 12/02/20 Status: Ordered PEG-3350 with Electrolytes Lemon (Eqv-GoLYTELY) oral powder for reconstitution See Instructions, M[place]gasque instructions Mix powder with water according to the product label. [facility] instructions stating when to drink the prep fluid on the evening before the colonoswowpcy. 8 oz every 20 minutes, # 1 each, 0 Refills, Ma... Start Date: 04/19/22 Status: Ordered ProAir HFA 90 mcg/inh inhalation aerosol with adapter 1, puffs, Inhalation, Every 4 hours, PRN, # 8.5 Gm, Refills 5, Tot. Refills 5, Maintenance, 07/31/20 15:09:00 EST, Aerosol, Route to Pharmacy Electronically, [id number], [facility]., 168, cm, 11/19/19 13:14:00... Start Date: 07/31/20 [...] Refills, Maintenance, 11/13/20 9:08:00 EST, ER Tablet, [facility], Partial fill upon patient request if the [...] Refills, Maintenance, 11/06/20 14:03:00 EST, ER Tablet, [facility], [place] label, 168, cm, 11/19/19 13:14:00 EDT, Height, 89.2, k... Start Date: 11/06/20 Status: Ordered Vitamin D3 1000 intl units oral capsule 1 capsule = 1,000 International_Units, By Mouth, Daily, [place] label please; with food, # 30 capsule, 5 Refills, Maintenance, 11/06/20 11:55:00 EST, Capsule, [facility] 168, cm, 11/19/19 13:14:00 EDT, Height, 89.2, kg, 06/19/19 1:03:... Start Date: 11/06/20 Stop Date: 05/05/21 Status: Ordered Problem List Condition Confirmation Course Effective Dates Status H ealt Status Informant Chronic pelvic pain Confirmed Active Chronic renal insufficiency Confirmed Active COVID-19 1 Confirmed 08/11/22 Active Diabetes Confirmed Active Fibromyalgia Confirmed Active GERD (gastroesophageal reflux disease) Confirmed Active Hypertension Confirmed Active Hypertriglyceridemia ; mild Confirmed Active Hypothyroid Confirmed Active Major depression, chronic Confirmed Active Obese class I Confirmed Active KIRAN (obstructive sleep apnea) severe Confirmed 2017 Active Palpitations Confirmed Active *BHN/CP/KRISTINE-Ernesto Leavitt Qtgnf-[phone]/H [facility], active care coordination Confirmed Active Seizure-like activity Confirmed Active Steatosis of liver Confirmed Active Vasovagal syncope Confirmed Active 1Problem added by Discern Expert Social History Social History Type Response Smoking Status Never smoker entered on: 01/14/16 Sex Female Note * Event Display: Stress Test Worksheet Authored Date: Patient Care team information Care Team Personnel Name: Lotus Lott Position: [facility] Outreach Member Role: PCP Address: Address: [address] [place] [id number]- Name: Germania Kelly RN Position: S RN Member Role: Primary Care Nurse Name: Shelly Yo RN Position: [facility] RN Member Role: Primary Care Nurse Name: Charis Schmitt RN Position: S RN Member Role: Primary Care Nurse Name: Flaca Roe RN Position: S RN Member Role: Primary Care Nurse Care Team Related Persons Name: MIS HARVEY Address: home [address] [place] [address] Name: ADRIAN HARVEY Address: [place] [address] Name: JACQUELINE HARVEY Address: home [address] [address]
--- OUTSIDE RECORDS SUMMARY | 2023-07-02 18:48 | XMS_ITS | Continuity of Care Document ---
Author Name Unknown Organization [facility] ter Address [address] [place] [id number]- Care Team Providers Care Nuclear Scientist Name Role Phone Lotus Lott Primary Care Physician [phone] Encounter [facility] ACCT R [id number] Date(s): 08/10/22 - 08/11/[address] [address]- Encounter Diagnosis COVID(Final) - 08/10/22 Pneumonia(Final) - 08/10/22 Discharge Disposition: A-D/C Home Attending Physician: Jamal Mayfield MD Admitting Physician: Jamal Mayfield MD Referring Physician: Not on Staff, Referring MD Allergies, Adverse Reactions, Alerts Substance Reaction Severity Status penicillin itchy/rash/blisters Active Percocet 5/325 1 C/O: itching Active aspirin rash/itchy Active 1pt states still takes Immunizations Given [...] 0 Refills, Maintenance, 12/20/19 10:09:00 EDT, Solution, [facility] [address] 168, cm, 11/19/19 13:14:00 EDT, [...] mg, By Mouth, Daily, please label in ethiopian., # 30 tablet, 11 Refills, Maintenance, 06/23/20 20:27:00 EDT, Tablet, [facility], 168, cm, 11/19/19 13:14:00 EDT, Height, 89.2, kg, 06/19/19 1:03:00 EDT, Dry Weight Start Date: 06/23/20 Status: Ordered azithromycin 500 mg oral tablet 1 tablet = 500 mg, By Mouth, Daily, for 2 days, # 2 tablet, 0 Refills, Acute 08/13/22 9:00:00 EST, 08/11/22 9:00:00 EST, Tablet, [facility]/pharmacy #[id number], Partial fill upon patient request if the prescription is for a schedule II opioid drug., 163, cm, 08/0... Start Date: 08/11/22 Stop Date: 08/13/22 Status: Ordered BATH BENCH BATH BENCH, See Instructions, # 1 each, Refills 0, Tot. Refills 0, Maintenance, DX FRIBROMYALGIA, CHRONIC BACK PAIN CHRONIC PELVIC PAIN IMPAIRED MOBILITY R10/2.M79.7, M54.5 Z74.09 DURATION LIFETIME HT 64 IN WT 175 LBS, 08/19/19 16:38:53 EST, Compound Start Date: 08/19/19 Status: Ordered cefpodoxime 200 mg oral tablet 1 tablet = 200 mg, By Mouth, 2 times a day, for 4 days, # 8 tablet, 0 Refills, Acute 08/15/22 9:00:00 EST, 08/11/22 9:00:00 EST, Tablet, [id number], Partial fill upon patient request if the prescription is for a schedule II opioid drug., 163,... Start Date: 08/11/22 Stop Date: 08/15/22 Status: Ordered CeraVe topical cream 1 application, Topically, 2 times a day, PRN for dry skin, Print instructions in ethiopian to affected area, # 454 Gm, 0 Refills, Maintenance, 11/25/20 14:30:00 EDT, Cream, [facility], Partial fill upon patient request if the prescripti... Start Date: 11/25/20 Status: Ordered Claritin 10 mg oral tablet 10 mg, By Mouth, Daily, # 90 tablet, Refills 0, Tot. Refills 0, Maintenance, 06/23/20 9:15:00 EDT, Route to Pharmacy Electronically, [facility], 168, cm, 11/19/19 13:14:00 EDT, Height, [...] 2 Refills, Maintenance, 11/13/20 9:14:00 EST, Gel, [facility]., Maldivian label, 168, cm, 11/13/20 8:37:00 EST,... Start Date: 11/13/20 Status: Ordered Freestyle Lancets See Instructions, # 100 each, Refills 11, Tot. Refills 11, Maintenance, use as directed for Type 2 Diabetes Mellitus Test 3 times/day Instructions in Maldivian, 11/10/20 9:37:00 EST, Compound, 168, cm,11/19/19 13:14:00 EDT, Height, 89.2, kg, 06/19/19... Start Date: 11/10/20 Stop Date: 11/05/21 Status: Ordered Freestyle Lite Test Strips See Instructions, # 100 each, Refills 6, Tot. Refills 6, Maintenance, use as directed for Type 2 Diabetes Mellitus Test 3 times/day Instructions in Maldivian, 11/10/20 9:41:00 EST, Duplicate rx-Original rx sent 06/23/20. Remaining refills sent., [place]... Start Date: 11/10/20 Stop Date: 06/08/21 Status: Ordered gabapentin 600 mg oral tablet 1 tablet = 600 mg, By Mouth, 3 times a day, Maldivian label, # 90 tablet, 5 Refills, Maintenance, 05/12/21 13:56:00 EDT, Tablet, [facility]., 168, cm, 11/19/19 13:14:00 EDT, Height, 89.2, kg, 06/19/19 1:03:00 EDT, Dry Weight Start Date: 05/12/21 Stop Date: 11/08/21 Status: Ordered Lac-Hydrin 12% lotion 1 application, Topically, 2 times a day, PRN Dry Skin, Apply and rub in well, # 400 Gm, 2 Refills, Maintenance, 11/13/20 9:08:00 EST, Lotion, [facility], Maldivian label, 1 application Topically 2 times a [...] PRN Pain , Moderate, Print instructions in ethiopian wash hands thoroughly after application, # 50 Gm, 1 Refills, Maintenance, 11/25/20 14:45:00 EDT, Ointment, [facility], Partial fill upon patie... Start Date: 11/25/20 Status: Ordered lisinopril 10 mg oral tablet 10 mg, 1, tablet, By Mouth, Daily, # 30 tablet, Refills 0, Tot. Refills 0, Maintenance, 12/04/20 14:27:00 EDT, Route to Pharmacy Electronically, [facility], Partial fill upon patient request if the prescription is for a schedule II opioi... Start Date: 12/04/20 Status: Ordered Metamucil 3.4 gm/5.2 gm oral powder for reconstitution = 3.4 Gm, By Mouth, 3 times a day, PRN as needed for constipation, # 1,042 Gm, 0 Refills, Acute 04/20/23 13:53:00 EDT, 04/19/22 13:51:00 EDT, REC Powder, [facility]/pharmacy #[id number], Partial fill upon patientrequest if the prescription is for a schedule II op... Start Date: 04/19/22 Stop Date: 04/20/23 Status: Ordered metFORMIN 500 mg oral tablet, extended release See Instructions, Take 1000 mg (2 tabs) in the morning and 500 mg (1 tab) in the evening; with food; Maldivian label, # 90 tablet, 5 Refills, Maintenance, 11/06/20 13:47:00 EST, [facility], 168, cm, 11/19/19 13:14:00 EDT, Height, 89.2, k... Start Date: 11/06/20 Status: Ordered montelukast 10 mg oral tablet 10 mg, 1, tablet, By Mouth, Daily, # 90 tablet, Refills 5, Tot. Refills 5, Maintenance, 12/20/19 10:09:00 EDT, Route to Pharmacy Electronically, [facility], 168, cm, 11/19/19 13:14:00EDT, Height, 89.2, [...] (Eqv-GoLYTELY) oral powder for reconstitution See Instructions, Maldivian instructions Mix powder with water according to the product label. [facility] instructions stating when to drink the prep fluid on the evening before the colonoswowpcy. 8 oz every 20 minutes, # 1 each, 0 Refills, Ma... Start Date: 04/19/22 Status: Ordered ProAir HFA 90 mcg/inh inhalation aerosol with adapter 1, puffs, Inhalation, Every 4 hours, PRN, # 8.5 Gm, Refills 5, Tot. Refills 5, Maintenance, 07/31/20 15:09:00 EST, Aerosol, Route to Pharmacy Electronically, [id number], [facility]., 168, cm, 11/19/19 13:14:00... Start Date: 07/31/20 [...] Refills, Maintenance, 11/13/20 9:08:00 EST, ER Tablet, [facility]., Partial fill upon patient request if the [...] Refills, Maintenance, 11/06/20 14:03:00 EST, ER Tablet, [facility]., Maldivian label, 168, cm, 11/19/19 13:14:00 EDT, Height, 89.2, k... Start Date: 11/06/20 Status: Ordered Vitamin D3 1000 intl units oral capsule 1 capsule = 1,000 International_Units, By Mouth, Daily, Maldivian label please; with food, # 30 capsule, 5 Refills, Maintenance, 11/06/20 11:55:00 EST, Capsule, [facility] 168, cm, 11/19/19 13:14:00 EDT, [...] Confirmed 2017 Active Palpitations Confirmed Active *BHN/BHCP/Patricia Denney-[phone]/H lt [facility], active care coordination Confirmed Active Seizure-like activity Confirmed Active Steatosis of liver Confirmed Active Vasovagal syncope Confirmed Active 1Problem added by Discern Expert Results Radiology Reports * Exam Date Time Procedure Performing Provider Status 08/10/22 8:33 PM Chest Portable Hipolito Tejada; Mod ified Notes: (Chest Portable) Reason For Exam: Shortness of Breath RESULT: Chest Portable Chest Portable Hx of Present Illness: pt presents to the ed with c o sore throat, sob, tight chest, chills, dizziness w standing; Reason: Shortness of Breath; Clinical Question(s): CHF COMPARISON: 07/03/2021. FINDINGS: LINES AND TUBES: None. LUNGS AND PLEURA: Low lung volumes with mild basilar atelectasis. Lungs are otherwise clear with no consolidation. No pleural effusion. No pneumothorax. HEART, MEDIASTINUM AND ANGELO: Heart is normal in size. Normal mediastinal and hilar contour. BONES AND SOFT TISSUES: No acute abnormality. IMPRESSION: No acute abnormality. WSN: [id number] Ordering Physician: Elana Barajas Dictated By: Lennox Chaidez MD Dictated Date/Time: 08/10/22 8:55 pm Reviewed By: Lennox Chaidez MD Signed By: Lennox Chaidez MD Signed Date/Time: 08/10/22 8:55 pm Transcribed By: CESAR Transcribed Date/Time: 08/10/22 8:51 pm ADDENDUM: Chest Portable Upon further review, it was noted that there is a left retrocardiac opacity, which does not appear to be atelectasis and therefore pneumonia should be considered in the differential diagnosis. Findings were communicated to Elana Barajas MD via secure messaging system [employer] at 9:53 PM. Message receipt was confirmed. WSN: [id number] Ordering Physician: Elana Barajas Dictated By: Lennox Chaidez MD Dictated Date/Time: 08/10/22 9:54 pm Reviewed By: Lennox Chaidez MD Signed By: Lennox Chaidez MD Signed Date/Time: 08/10/22 9:54 pm Transcribed By: CESAR Transcribed Date/Time: 08/10/22 9:53 pm Vital Signs Most recent to oldest [Reference Range]: 1 2 3 Oxygen Saturation [94-100 %] 95 % (08/11/22 3:45 AM) 98 % (08/11/22 12:07 AM) 99 % (08/10/22 8:22 PM) Pulse Rate [55-90 bpm] 67 bpm (08/11/22 3:45 AM) 61 bpm (08/11/22 12:07 AM) 63 bpm (08/10/22 8:22 PM) Blood Pressure [90-138/55-84 mm Hg] 130/86mm Hg (08/11/22 3:45 AM) 129/76mm Hg (08/11/22 12:07 AM) 132/74mm Hg (08/10/22 8:22 PM) Respiratory Rate [16-30 br/min] 18 br/min (08/11/22 3:45 AM) 18 br/min (08/11/22 12:07 AM) 20 br/min (08/10/22 8:22 PM) Temperature [96.8-100.4 DegF] 97.9 DegF (08/11/22 12:07 AM) 98.0 DegF (08/10/22 8:22 PM) 97.9 DegF (08/10/22 8:00 PM) Mode of Delivery (Oxygen) Room air (08/11/22 3:45 AM) Room air (08/11/22 12:07 AM) Room air (08/10/22 8:22 PM) Blood pressure sites Arm, right (08/11/22 3:45 AM) Arm, right (08/11/22 12:07 AM) Arm, left (08/10/22 8:22 PM) Temperature Route Oral (08/11/22 12:07 AM) Oral (08/10/22 8:22 PM) Oral (08/10/22 8:00 PM) Social History Social History Type Response Smoking Status Never smoker entered on: 01/14/16 Sex Female EKG study * Event Display: EKG Authored Date: Note * Norbert Rodriguez MD: PERFORM Event Display: Patient Education Leaflets Authored Date: [id number] COVID-19 Pulse Oximeter Discharge Instructions ?? 560 COVID-19 Pulse Oximeter Discharge Instructions ?? Even when infected with COVID-19, many people have mild symptoms and recover on their own. Acetaminophen (Tylenol) or Ibuprofen (Motrin) may be helpful for fevers and pain. However, some people get worse. This is why we have sent you home with a pulse oximeter, a device to measure your oxygen level. In addition to isolating yourself, washing your hands and wearing a mask, you will need to check your oxygen level 3 times each day. To get an accurate level, you will need to do the following: ? Make measurements indoors, at rest, and when you are breathing quietly ? Use the index or middle finger; Do not use your toes or ear lobes ? Remove nail angolan/fake nails from the finger on which measurements are made ? If your hands are cold (just went outside, etc), warm them up before measuring ? Only accept values associated with a strong pulse signal ? Record the most common value over a 30-60 second period If your oxygen saturation reads 92 or lower, please return to the ED or call your primary doctor for urgent attention. In addition, you will be contacted by [facility] to schedule follow up with a provider within 48-72 hours over telehealth. This can be done using your smart phone or computer.?? You also may receive and email or text from the ???Get Well?? Network.?? Once enrolled the ???Get Well?? Network will help track your symptoms and can answer any questions you may have. ? * Norbert Rodriguez MD: PERFORM Event Display: Patient Education Leaflets Authored Date: COVID-19 Self Isolation Instruction ?? 94 SELF-ISOLATION INSTRUCTIONS ?? IMPORTANT INSTRUCTIONS ABOUT SELF-ISOLATION (and quarantine) FOR PEOPLE WITH VIRUS SYMPTOMS ?? This information is for patients with suspected COVID-19 (Coronavirus) Infection when no test was performed. It is extremely important that you follow these instructions. ?? General Information You came to the Emergency Department with symptoms of a viral illness, including muscle aches, fevers, chills, runny nose, cough, sneezing, sore throat, vomiting or diarrhea. It is possible that you have COVID-19, also known as the coronavirus. Because we do not know for sure, you should assume that YOU DO HAVE THIS VIRUS. ?? At this time, there are not enough tests to test everyone for coronavirus. Only patients who are very sick are getting tests.? What should you do next Even if you have COVID-19, most people have mild symptoms and recover on their own. Resting, staying hydrated, and sleeping are typically helpful. As of today ???s visit, you are well enough to go home and treat your symptoms with oral fluids, medicines for fevers, cough, pain, etc. You can use medication such as Acetaminophen (Tylenol) or Ibuprofen (Motrin) for fevers, cough and pain. There is no special medicine or vaccine for COVID-19.? However, it is very important for you to do certain things to prevent the spread of the virus. ?? We want to help you keep other people from getting this virus. Older people and people with illnesses are at high risk of severe illness. Please follow the steps below and contact your primary care physician for further help. ?? 1. Stay home except to get medical care. People who are mildly ill with COVID-19 should stay at home during their illness. In order to not infect other people, avoid?? contact with others both insideand outside your home. ??? Do not go to work, school, or to any public areas. ??? Avoid grocery shopping if possible - have a friend or family member sweet pickle maker food and drop it off. ??? Avoid large crowds, public transportation, ride sharing or taxis. ?? 2. Wash your hands often. Wash your hands often with soap and water for at least 20 seconds. If soap and water are not available, clean your hands with an alcohol- based hand continuous mining machine company miner that contains at least 60% alcohol, covering all surfaces of your hands and rubbing them together until they feel dry. Avoid touching your eyes, nose, and mouth with unwashed hands. ?? 3. Cover your coughs and sneezes. Cover your mouth and nose with a tissue when you cough or sneeze Throw used tissues in a lined trash can; immediately wash your hands with soap and water for at least20 seconds or clean your hands with an alcohol-based hand continuous mining machine company miner that contains at least 60 to 95% alcohol, covering all surfaces of your hands and rubbing them together until they feel dry. ??? Ifyou have to leave your house to go to a public place or see a doctor, wear a surgical mask (or bandana, or scarf) to catch your cough. 4. Separate yourself from other people and animals in your housefor at least 7 days. If possible, stay in a specific room away from other people. If you have a separate bathroom, have one bathroom be for the sick person only. Do not handle pets or other animals. You should not share dishes, drinking glasses, cups, eating utensils, towels, or bedding with other people or pets in your home. After using these items, they should be washed thoroughly with soap andwater. The elderly and people who have chronic illness have a higher risk of becoming very sick if they get COVID-19. Please try to avoid contact with people over 60 years old or anyone with chronic heart or lung disease, diabetes, or any condition that weakens their immune system (cancer, transplant patients). ?? 5. Clean all ???high-touch?? surfaces every day. ?? High touch surfaces include counters, tabletops, doorknobs, bathroom fixtures, toilets, phones, keyboards, tablets, and bedside tables. Also, clean any surfaces that may have blood, stool, or body fluids on them. Use a household cleaning spray or wipe, according to the label instructions. ?? 6. Wear a facemask. You should wear afacemask when you are around other people and before you enter a healthcare provider ???s office. If you are not able to wear a facemask (for example, because it causes trouble breathing), then people who live with you should not stay in the same room with you, or they should wear a facemask if they enter your room. ?? 7. Call ahead before visiting your doctor. If you need to see your doctor, it is essential that you call first and tell them that you have or may have COVID-19. This will help the healthcare provider ???s office take steps to keep other people from getting infected or exposed. ?? When to return to the Emergency Department ?? Please return to the emergency department if you feel you are getting sicker, for example: worsening difficulty breathing or chest pain, if you are unable to eat or drink, if you have severe vomiting, diarrhea, weakness, fainting or near fainting.?? If possible, put on a facemask before you enter the hospital to protect other patients.?? If you feel you are sick enough to call 911, please tell them you may have COVID. ?? Medications you can take If able, you can take Acetaminophen (Tylenol) 500mg every 4-6 hours for pain or fever. You can also take Ibuprofen 400mg every 6 hours for pain or fever. Tylenol and Ibuprofen can be taken together or s eparately. ?? Please continue your regular medications. It is very important to stay as healthy as possible. ?? When can I go back to my regular life? Once you have NO SYMPTOMS (no fever, no cough, no runny nose) for 7 days, you can go back to work. If testing becomes available before then, you could get tested. However, you should call and confirm that you can get a test before leaving your house. ? Taking care of your mental health You might be feeling anxious, afraid, lonely or uncertain. Below is a link for a list of helpful behavioral health resources, and a few tips for taking care of your emotional health while you're quarantined. https://store.[facility].gov/system/files/ybx84-7945.pdf ?? Additional information can be found on the following websites: ? CDC [place] Website General Information: https://www.cdc.gov/coronavirus/2019-ncov/faq.html ?? Important Instructions for family members and household contacts How do I take care of someone who's quarantined in my home? If you are providing care for a person infected or suspected to be infected with COVID-19, please note the following. These instructions are also at this link: https://www.cdc.gov/coronavirus/2019-ncov/hcp/ktotgvlg-cluarae-yofdrq.html ?? Household members, intimate partners, and caregivers in a non-health care setting may have close contact (within 6 feet) with a person with symptomatic, laboratory-confirmed COVID-19 or a person under investigation. Those in close contact should monitor their healthand should call their health care provider right away if they develop symptoms suggestive of COVID-19 (e.g., fever, cough, shortness of breath). ?? Those in close contacts should also follow these rec ommendations: ??? Make sure that you understand and can help the patient follow their health care provider ???s instructions for medication(s) and care. You should help the patient with basic needs in the home and provide support for getting groceries, prescriptions and other personal needs. ?Monitor the patient???s symptoms. If the patient is getting sicker, call his or her health care provider and tell them that the patient has laboratory-confirmed or is under investigation for COVID-19. This will help the health care provider???s office take steps to keep other people in the office or waiting room from getting infected. Ask the health care provider to call the local or state health department for additional guidance. If the patient has a medical emergency and you need to call 911, notify the dispatch personnel that the patient has, or is being evaluated for COVID-19. ? Household members should stay in another room or be from the patient as much as possible. Household members should use a separate bedroom and bathroom, if available. ? Prohibit visitors who do not have an essential need to be in the home. ? Household members should care for any petsin the home. Do not handle pets or other animals while sick. ? Make sure that shared spaces inthe home have good airflows, such as by an air conditioner or an opened window, weather permitting.? Perform hand hygiene frequently. Wash your hands often with soap and water for at least 20 seconds or use an alcohol-based hand continuous mining machine company miner that contains 60 to 95% alcohol, covering all surfacesof your hands and rubbing them together until they feel dry. Soap and water should be used preferentially if hands are visibly dirty. ? Avoid touching your eyes, nose, and mouth with unwashed hands. ? You and the patient should wear a facemask if you are in the same room. ? Wear a disposable facemask and gloves when you touch or have contact with the patient???s blood, stool, or body fluids, such as saliva, sputum, nasal mucus, vomit or urine. ?? - Throw out disposable facemasks and gloves after using them. Do not reuse. ?? - When removing personal protective equipment, first remove and dispose of gloves. ? Then, immediately clean your hands with soap and water or alcohol-based hand ? continuous mining machine company miner. Next, remove and dispose of facemask, and immediately clean your ?hands again with soap and water or alcohol-based hand continuous mining machine company miner. ? Avoid sharing household items with the patient. You should not share dishes, drinking glasses, cups, eating utensils, towels, bedding or other items. After the patient uses these items, you should wash them thoroughly (see below ???Wash laundry thoroughly?? ). ? Clean all high-touch surfaces, such as counters, tabletops,doorknobs, bathroom fixtures, toilets, phones, keyboards, tablets and bedside tables, every day. Also, clean any surfaces that may have blood, stool, or body fluids on them. ?? - Use a household cleaning spray or wipe, according to the label instructions. Labels ?? contain instructions for safe andeffective use of the cleaning product including ?? precautions you should take when applying the product, such as wearing gloves ?? and making sure you have good ventilation during the use of the product. ? Wash laundry thoroughly. ?? - Immediately remove and wash clothes or bedding that have blood, stool, or body ? fluids on them. ?? - Wear disposable gloves while handling soiled items and keep soiled items away ? from your body. Clean your hands (with soap and water or an alcohol-based hand ? continuous mining machine company miner) immediately after removing your gloves. ?? - Read and follow directions onlabels of laundry or clothing items and detergent. In ?? general, using a normal laundry detergent according to washing machine ?? instructions and dry thoroughly using the warmest temperatures recommended on ?? the clothing label. ? Place all used disposable gloves, facemasks, and other contaminated items in a lined container before disposing of them with other household waste. Clean your hands (with soap and water or an alcohol-based hand continuous mining machine company miner) immediately after handling these items. Soap and water should be used preferentially if hands are visibly dirty. ? Discuss any additional questions with your state or local health department or health care provider. ?? What do I do if I develop symptoms? If you develop symptoms, and your household member has confirmed COVID, you likely have COVID. You should follow self-isolation instructions above. If your household member has suspected COVID, and tests are available, you can call your doctor about getting a test. You should stay home, as above, and seek medical care only if you are having difficulty breathing or other severe symptoms. ? * Norbert Rodriguez MD: PERFORM Event Display: Patient Education Leaflets Authored Date: COVID-19 Test Positive Adult ?? 577 INSTRUCCIONES IMPORTANTES SOBRE EL COVID-19 ?? Tellez prueba de COVID david un resultado positivo. ?? (Adult COVID Test Positive-Maldivian) ?? Informaci ??n general ?? Incluso cuanto se infectan con COVID-19, muchas personas presentan s ??ntomas leves y se recuperan por s?? solas. No existen tratamientos espec??ficos para las infecciones leves por COVID, uche muchas personas se sienten mejor con simples estrategias de apoyo: reposo, abundancia de l??quidos orales e ibuprofeno o acetaminof??n. ?? Es muy importante que usted ayude a evitar la propagaci ??n del virus. ?? 1. Qu ??dese en casa khushi para obtener atenci??n m??dica. Las personas que est??n levemente enfermas con COVID-19 deber??an quedarse en tellez hogar eduin tellez enfermedad. ??? No debe ir al trabajo, a la escuela ni a ninguna ??daily p??blica. ??? No debe permitir visitas en tellez casa. ??? Bajo courtney ??n concepto vaya a lugares muy concurridos, use el transporte p??blico, comparta un viaje en autom??ranjit ni use taxis. ?? 2. L ??vese las jumana con frecuencia. L??vese las jumana a menudo con agua y jab??n por al menos 20 segundos. Si no hubiera agua y jab??n disponibles, l??mpiese las jumana con un desinfectante para jumana a base de alcohol, cubriendo toda la superficie de мария jumana y frot??ndolas entre s?? hasta que las sienta secas. Evite tocarse los ojos, la nariz y la boca con las jumana sin kerline. ?? 3. Use moni mascarilla que le cubra la nariz y la boca. Las mascarillas son moni de las mejores maneras de prevenir la propagaci??n del COVID. Cuando moni persona est?? enferma, todos los miembros del n??holly familiar deben usar mascarillas dentro de la casa y cuando est??n a 6 pies (1.8 m) de distancia de otra persona o menos. Si es absolutamente imprescindible que salga de tellez casa, use mascarilla en todo momento. ?? 4. Si fuera posible, mant ??ngase alejado de otras personas en tellez hogar eduin al menos 10 d??as. Si tiene un ba??o separado, savita que un ba??o sea para el uso exclusivo de la persona enferma. No debe compartir platos, vasos, tazas, cubiertos, toallas, o ropa de cama con otras personas o mascotas en tellez hogar. Despu??s de usar estos art??culos, estos deben lavarse muy mariah con agua y jab??n. Intente evitar el contacto con personas de m??s de 60 a??os o con cualquiera que tenga moni enfermedad cr??maira del coraz??n o los pulmones, diabetes, enfermedad a los ri??ones o cualquier afecci??n que debilite tellez sistema inmunitario (yasmin pacientes de c??ncer o sometidos a trasplantes), ya que esas personas corren un riesgo m??s alto de sufrir omni enfermedad muy grave si se contagiaran de COVID-19. Es probable que no sea posible aislar a los ni??os loni??os de los miembros de la eladia o de los cuidadores. Lo ideal es que se designe a un miembro del n??holly familiar yasmin cuidador, y que jose persona se a??sle con el ni??o. Si est?? amamantando, es seguro que siga haci??ndolo. ?? 5. Limpie las superficies de ???alto contacto?? todos los d??as. Las superficies de alto contacto incluyen mostradores, mesas, picaportes, accesorios del ba??o, inodoros, tel??fonos, teclados, tabletas y mesas de noche. Tambi??n limpie cualquier superficie que pueda tener rahul, heces o fluidos corporales. Use un aerosol o pa??o de limpieza para el hogar, de acuerdo con las instrucciones de la etiqueta. ?? 6. Llame antes de ir a consultar a tellez m ??dico. Si necesita alyssia a tellez m??dico, es esencial que llame ashley y les diga que tiene o podr??a tener COVID-19. [place] ayudar?? a que el consultorio del proveedor m??dico tome medidas para evitar que otras personas resulten infectadas o expuestas. ?? Cu ??ndo volver al Departamento de Emergencias Vuelva al Departamento de Emergencias si siente que est?? m??s enfermo, si empeora tellez dificultad para respirar o el dolor en el pecho, si le kathy comer o beber, si est?? d??gini o si presenta confusi??n nueva. Si es posible, p??ngase moni mascarilla antes de entrar al hospital para proteger a los dem??s pacientes. Si siente que est?? lo suficientemente enfermo yasmin para llamar al 911, aseg??rese de informar que podr??a tener COVID-19. ?Cu??ndo puedo regresar a mi michelle habitual? Debe permanecer aislado en casa hasta que pase 24 horas sin fiebre y hayan pasado al menos 10 d??as desde la aparici??n de los s??ntomas. En casos graves de COVID-19, ser?? necesario un aislamiento m??s briana. Tellez profesional de cabecera puede ayudarlo a saber qu?? es lo mejor para usted seg??n lo r??pido que se recupere tellez hijo. ?? Comun??quese con tellez m??dico para conversar sobre tellez disponibilidad para teleconsultas de apoyo seg??n sea necesario. ? * [facility] , CIS S: TRANSCRIBE Lennox Chaidez MD: MODIFY Event Display: Addendum Authored Date: Upon further review, it was noted that there is a left retrocardiac opacity, which does not appear to be atelectasis and therefore pneumonia should be considered in the differential diagnosis. Findings were communicated to Elana Barajas MD via secure messaging system [employer] at 9:53 PM. Message receipt was confirmed. WSN: [id number] Ordering Physician: Elana Barajas Dictated By: Lennox Chaidez MD Dictated Date/Time: 08/10/22 9:54 pm Reviewed By: Lennox Chaidez MD Signed By: Lennox Chaidez MD Signed Date/Time: 08/10/22 9:54 pm Transcribed By: CESAR Transcribed Date/Time: 08/10/22 9:53 pm Portable XR Chest Views * [facility] , CIS S: TRANSCRIBE Lennox Chaidez MD: VERIFY Event Display: Result: Authored Date: Chest Portable Hx of Present Illness: pt presents to the ed with c o sore throat, sob, tight chest, chills, dizziness w standing; Reason: Shortness of Breath; Clinical Question(s): CHF COMPARISON: 07/03/2021. FINDINGS: LINES AND TUBES: None. LUNGS AND PLEURA: Low lung volumes with mild basilar atelectasis. Lungs are otherwise clear with no consolidation. No pleural effusion. No pneumothorax. HEART, MEDIASTINUM AND ANGELO: Heart is normal in size. Normal mediastinal and hilar contour. BONES AND SOFT TISSUES: No acute abnormality. IMPRESSION: No acute abnormality. WSN: [id number] Ordering Physician: Elana Barajas Dictated By: Lennox Chaidez MD Dictated Date/Time: 08/10/22 8:55 pm Reviewed By: Lennox Chaidez MD Signed By: Lennox Chaidez MD Signed Date/Time: 08/10/22 8:55 pm Transcribed By: CESAR Transcribed Date/Time: 08/10/22 8:51 pm Patient Care team information Care Team Personnel Name: Lotus Lott Position: [facility] Outreach Member Role: PCP Address: Address: [address] [place] [id number]- [place] Name: Germania Kelly RN Position: [facility] RN Member Role: Primary Care Nurse Name: Shelly Yo RN Position: [facility] SN RN Member Role: Primary Care Nurse Name: Omaira Lang Position: [facility] RN Member Role: Primary Care Nurse Name: Charis Schmitt RN Position: [facility] RN Member Role: Primary Care Nurse Name: Flaca Roe RN Position: [facility] RN Member Role: Primary Care Nurse Name: Carito Connor Position: [facility] ED TA [facility] Member Role: Whizzer Name: Dipak Briseno RN Position: [facility] ED RN W/OE and Tasks Member Role: Patient Care Provider Name: Jamal Mayfield MD Position: [facility] ED Medicine MD Member Role: ED Attending Physician Address: Address: [address] [place] [address]- Name: Norbert Rodriguez MD Position: [facility] Resident Member Role: ED Resident Address: Address: [address] [place] [address]- Care Team Related Persons Name: MIS HARVEY Address: home [address] [place] [address] Name: ADRIAN HARVEY Address: [place] [address] Name: JACQUELINE HARVEY Address: home [address] [address]
--- OUTSIDE RECORDS SUMMARY | 2023-07-02 18:48 | XMS_ITS | Continuity of Care Document ---
Author Name Unknown Organization [facility] Address [address] [place] [address]- Care Team Providers Care Strip Stamp Straightener Name Role Phone Vanessa Sharif DO Primary Care Physician Encounter [facility] Date(s): 01/16/20 - 02/15/20 [facility] [address] [place] [address]- [facility] Attending Physician: Silvino Vance Admitting [...] Refuses Medications acetaminophen 500 mg oral tablet 2 tablet = 1,000 mg, By Mouth, 3 times a day, Indian label. Not to exceed 3000 mg/day., # 120 tablet, 0 Refills, Maintenance, 03/06/20 10:56:00 EDT, [facility] 168, cm, 11/19/19 13:14:00 EDT, Height, 89.2, kg, 06/19/19 1:03:00 EDT, Inderjit. Start Date: 03/06/20 Status: Ordered albuterol 0.083% inhalation solution 3 mL = 2.5 mg, Inhalation, Every 6 hours, PRN for wheezing, # 60 each, 0 Refills, Maintenance, 12/20/19 10:09:00 EDT, Solution, [facility]., 168, cm, 11/19/19 13:14:00 EDT, Height, [...] mg, By Mouth, Daily, please label in albanian. discontinue the atorvastatin, # 30 tablet, 5 Refills, Maintenance, 12/18/19 16:05:00 EDT, Tablet, [facility], 168, cm, 11/19/19 13:14:00 EDT, Height, [...] MANUEL, # 50 Gm, 0 Refills, Acute, [facility], 25, APLICAR A LA PIEL AL AREA AFECTADA DOS VECES AL MANUEL, 168, cm, 09/24/19 13:53:00 EST, Height, 89.2, kg, 06/19/19 1:03:00 EDT, Start Date: 10/23/19 Status: Ordered Claritin 10 mg oral tablet 10 mg, By Mouth, Daily, # 90 tablet, Refills 0, Tot. Refills 0, Maintenance, 12/18/19 14:20:00 EDT,Route to Pharmacy Electronically, [facility], 168, cm, 11/19/19 13:14:00 EDT, Height, [...] NECESARIO, # 30 Gm, 0 Refills, Acute, [facility], 14, APLICAR A LA PIEL AL AREA AFECTADA (DE LA ERUPCION EN EL PIE DERECHO) D... Start Date: 10/23/19 Status: Ordered diclofenac 1% topical gel 1 application, Topically, 4 times a day, PRN for pain, not to exceed 8 grams/day/single joint of upper extremities, # 100 Gm, 0 Refills, Maintenance, 01/19/20 19:54:00 EDT, Gel, [facility]., 168, cm, 11/19/19 13:14:00 EDT, Height, 89.2,... Start Date: 01/19/20 Status: Ordered Flovent HFA 220 mcg/inh inhalation aerosol 1 puffs, Inhalation, 2 times a day, # 12 Gm, 3 Refills, Maintenance, 12/20/19 13:42:00 EDT, Aerosol, [facility]., 168, cm, 11/19/19 13:14:00 EDT, Height, 89.2, kg, 06/19/19 1:03:00 EDT, Dry Weight Start Date: 12/20/19 Status: Ordered Freestyle Lancets See Instructions, # 100 each, Refills 11, Tot. Refills 11, Maintenance, use as directed for Type 2 Diabetes Mellitus Test 3 times/day Instructions in Indian, 08/09/19 10:57:52 EST, Compound Start Date: 08/09/19 Stop Date: 08/03/20 Status: Ordered Freestyle Lite Test Strips See Instructions, # 100 each, Refills 11, Tot. Refills 11, Maintenance, use as directed for Type 2 Diabetes Mellitus Test 3 times/day Instructions in Indian, 08/09/19 10:57:52 EST, Compound Start Date: 08/09/19 Stop Date: 08/03/20 Status: Ordered gabapentin 600 mg oral tablet 1 tablet = 600 mg, By Mouth, 3 times a day, Indian label, # 270 tablet, 5 Refills, Maintenance, 11/19/19 13:56:00 EDT, Tablet, [facility], 168, cm, 11/19/19 13:14:00 EDT, Height, 89.2, kg, 06/19/19 1:03:00 EDT, Dry Weight Start Date: 11/19/19 Stop Date: 05/12/21 Status: Ordered levothyroxine 125 mcg (0.125 mg) oral tablet 1 tablet = 125 mcg, By Mouth, Daily, Indian label, # 30 tablet, 5 Refills, Maintenance, 09/10/19 15:16:00 EST, Tablet, [facility]., 168, cm, 09/10/19 13:44:00 EST, Height, 89.2, kg, 06/19/19 1:03:00 EDT, Dry Weight Start Date: 09/10/19 Status: Ordered Linzess 72 mcg oral capsule 0 Refills, Maintenance, 10/24/19 13:52:00 EST Start Date: 10/24/19 Status: Ordered lisinopril 30 mg oral tablet 1 tablet = 30 mg, By Mouth, Daily, dose increase, # 30 tablet, 11 Refills, Maintenance, 08/27/19 13:59:38 EST, [facility], 168, cm, 08/20/19 13:32:17 EST, Height, 89.2, kg, 06/19/19 1:03:24 EDT, Dry Weight Start Date: 08/27/19 Status: Ordered metFORMIN 500 mg oral tablet, extended release See Instructions, Take 1000 mg (2 tabs) in the morning and 500 mg (1 tab) in the evening; with food; Indian label, # 90 tablet, 5 Refills, Maintenance, 12/25/19 14:51:00 EDT, [facility], 168, cm, 11/19/19 13:14:00 EDT, Height, [...] 12/20/19 10:09:00 EDT, Route to Pharmacy Electronically, [facility], 168, cm, 11/19/19 13:14:00EDT, Height, 89.2, [...] capsule = 40 mg, By Mouth, Daily, Indian label please, # 60 capsule, 2 Refills, Maintenance, 12/06/19 13:25:00 EDT, EC Capsule, [facility], please discontinue amoxicillin/metronidazole/lansoprazole combination, 168, cm, 11/19/19 13:... Start Date: 12/06/19 Stop Date: 03/05/20 Status: Ordered omeprazole 40 mg oral enteric coated capsule 2 capsule = 80 mg, By Mouth, Daily, via [facility] GI, # 60 capsule, 0 Refills, Maintenance, 01/07/20 13:53:00 EDT, CR Capsule Start Date: 01/07/20 Status: Ordered ProAir HFA 90 mcg/inh inhalation aerosol with adapter 1, puffs, Inhalation, Every 4 hours, PRN, # 8.5 Gm, Refills 5, Tot. Refills 5, Maintenance, 12/20/19 10:09:00 EDT, Aerosol, Route to Pharmacy Electronically, [id number], [facility], 168, , 11/19/19 13:14:00... Start Date: 12/20/19 [...] 2 hours up to amaximum of 2; Indian label please, # 9 tablet, 0 Refills, Maintenance, 09/10/19 15:12:00 EST, Tablet, [facility], 168, cm, 09/10/19 13... Start Date: 09/10/19 Status: Ordered Vitamin D3 1000 intl units oral capsule 1 capsule = 1,000 International_Units, By Mouth, Daily, Indian label please; with food, # 30 capsule, 11 Refills, Maintenance, 12/08/19 10:59:00 EDT, Capsule, [facility], 168, cm, 11/19/19 13:14:00 EDT, Height, 89.2, kg, 06/19/19 1:03... Start Date: 12/08/19 Stop Date: 12/02/20 Status: Ordered Problem List Condition Effective Dates Status Health Status Inform ant Chronic pelvic pain(Confirmed) Active Chronic renal insufficiency(Confirmed) Active Diabetes(Confirmed) Active Fibromyalgia(Confirmed) Active Hypertension(Confirmed) Active Hypertriglyceridemia; mild(Confirmed) Active Hypothyroid(Confirmed) Active Major depression, chronic(Confirmed) Active KIRAN (obstructive sleep apnea ) severe(Confirmed) 2017 Active Palpitations(Confirmed) Active *BHN/BHKRISTINE/Vasquez Guillen-[phone]/Health assisted, active care coordination(Confirmed) Active Seizure-like activity(Confirmed) Active Steatosis of liver(Confirmed) Active Vasovagal syncope(Confirmed) Active Social History Social History Type Response Smoking Status Never smoker entered on: 01/14/16 Sex Female
--- OUTSIDE RECORDS SUMMARY | 2023-07-02 18:48 | XMS_ITS | Continuity of Care Document ---
Author Name Unknown Organization [facility] Address [address] [place] [address]- Care Team Providers Care Elementary Art Teacher Name Role Phone Vanessa Sharif DO Primary Care Physician Encounter [facility] Date(s): 12/31/19 - 01/07/20 [facility] [address] [place] [address]- [facility] Attending Physician: Alyce Cruz MD Allergies, Adverse [...] Stop 12/24/20 11:35:00 EDT, 12/25/19 11:34:00 EDT, [facility] Start Date: 12/25/19 Stop Date: 12/24/20 Status: Ordered albuterol 0.083% inhalation solution 3 mL = 2.5 mg, Inhalation, Every 6 hours, PRN for wheezing, # 60 each, 0 Refills, Maintenance, 12/20/19 10:09:00 EDT, Solution[facility], cm, 11/19/19 13:14:00 EDT, [...] 5 Refills, Maintenance, 12/18/19 16:05:00 EDT, Tablet, [facility] 168, cm, 11/19/19 13:14:00 EDT, [...] Instructions, APLICAR A LA PIEL AL AREA AFECTSAN JOSE DOS VECES AL MANUEL, # 50 Gm, 0 Refills, Acute, [facility], 25, APLICAR A LA PIEL AL AREA AFECTADA DOS VECES AL MANUEL, 168, cm, 09/24/19 13:53:00 EST, Height, 89.2, kg, 06/19/19 1:03:00 EDT, . Start Date: 10/23/19 Status: Ordered Claritin 10 mg oral tablet 10 mg, By Mouth, Daily, # 90 tablet, Refills 0, Tot. Refills 0, Maintenance, 12/18/19 14:20:00 EDT,Route to Pharmacy Electronically, [facility], 168, cm, 11/19/19 13:14:00 EDT, [...] NECESARIO, # 30 Gm, 0 Refills, Acute, [facility], 14, APLICAR A LA PIEL AL AREA AFECTADA (DE LA ERUPCION EN EL PIE DERECHO) D... Start Date: 10/23/19 Status: Ordered diclofenac 1% topical gel 1 application, Topically, 4 times a day, PRN for pain, not to exceed 8 grams/day/single joint of upper extremities, # 100 Gm, 0 Refills, Maintenance, 12/18/19 18:21:00 EDT, Gel, [facility], 168, cm, 11/19/19 13:14:00 EDT, [...] 3 Refills, Maintenance, 12/20/19 13:42:00 EDT, Aerosol, [facility] 168, cm, 11/19/19 13:14:00 EDT, Height, 89.2, kg, 06/19/19 1:03:00 EDT, Dry Weight Start Date: 12/20/19 Status: Ordered Freestyle Lancets See Instructions, # 100 each, Refills 11, Tot. Refills 11, Maintenance, use as directed for Type 2 Diabetes Mellitus Test 3 times/day Instructions in Nigerien, 08/09/19 10:57:52 EST, Compound Start Date: 08/09/19 Stop Date: 08/03/20 Status: Ordered Freestyle Lite Test Strips See Instructions, # 100 each, Refills 11, Tot. Refills 11, Maintenance, use as directed for Type 2 Diabetes Mellitus Test 3 times/day Instructions in Nigerien, 08/09/19 10:57:52 EST, Compound Start Date: 08/09/19 Stop Date: 08/03/20 Status: Ordered gabapentin 600 mg oral tablet 1 tablet = 600 mg, By Mouth, 3 times a day, Nigerien label, # 270 tablet, 5 Refills, Maintenance, 11/19/19 13:56:00 EDT, Tablet, [facility] 168, cm, 11/19/19 13:14:00 EDT, Height, 89.2, kg, 06/19/19 1:03:00 EDT, Dry Weight Start Date: 11/19/19 Stop Date: 05/12/21 Status: Ordered levothyroxine 125 mcg (0.125 mg) oral tablet 1 tablet = 125 mcg, By Mouth, Daily, Nigerien label, # 30 tablet, 5 Refills, Maintenance, 09/10/19 15:16:00 EST, Tablet, [facility]., 168, cm, 09/10/19 13:44:00 EST, Height, 89.2, kg, 06/19/19 1:03:00 EDT, Dry Weight Start Date: 09/10/19 Status: Ordered Linzess 72 mcg oral capsule 0 Refills, Maintenance, 10/24/19 13:52:00 EST Start Date: 10/24/19 Status: Ordered lisinopril 30 mg oral tablet 1 tablet = 30 mg, By Mouth, Daily, dose increase, # 30 tablet, 11 Refills, Maintenance, 08/27/19 13:59:38 EST, [facility]., 168, cm, 08/20/19 13:32:17 EST, Height, 89.2, kg, 06/19/19 1:03:24 EDT, Dry Weight Start Date: 08/27/19 Status: Ordered metFORMIN 500 mg oral tablet, extended release See Instructions, Take 1000 mg (2 tabs) in the morning and 500 mg (1 tab) in the evening; with food; Nigerien label, # 90 tablet, 5 Refills, Maintenance, 12/25/19 14:51:00 EDT, [facility] 168, cm, 11/19/19 13:14:00 EDT, [...] 12/20/19 10:09:00 EDT, Route to Pharmacy Electronically, [facility], 168, cm, 11/19/19 13:14:00EDT, Height, [...] capsule = 40 mg, By Mouth, Daily, Nigerien label please, # 60 capsule, 2 Refills, Maintenance, 12/06/19 13:25:00 EDT, EC Capsule, [facility], please discontinue amoxicillin/metronidazole/lansoprazole combination, 168, , 11/19/19 13:... Start Date: 12/06/19 Stop Date: 03/05/20 Status: Ordered omeprazole 40 mg oral enteric coated capsule 2 capsule = 80 mg, By Mouth, Daily, via [facility] GI, # 60 capsule, 0 Refills, Maintenance, 01/07/20 13:53:00 EDT, CR Capsule Start Date: 01/07/20 Status: Ordered ProAir HFA 90 mcg/inh inhalation aerosol with adapter 1, puffs, Inhalation, Every 4 hours, PRN, # 8.5 Gm, Refills 5, Tot. Refills 5, Maintenance, 12/20/19 10:09:00 EDT, Aerosol, Route to Pharmacy Electronically, [id number], [facility], 168, , 11/19/19 13:14:00... Start Date: [...] 2 hours up to amaximum of 2; Nigerien label please, # 9 tablet, 0 Refills, Maintenance, 09/10/19 15:12:00 EST, Tablet, [facility], 168, cm, 09/10/19 13... Start Date: 09/10/19 Status: Ordered Vitamin D3 1000 intl units oral capsule 1 capsule = 1,000 International_Units, By Mouth, Daily, Nigerien label please; with food, # 30 capsule, 11 Refills, Maintenance, 12/08/19 10:59:00 EDT, Capsule, [facility] 168, cm, 11/19/19 13:14:00 EDT, [...] ) severe(Confirmed) 2017 Active Palpitations(Confirmed) Active *BHN/BHCP/Vasquez Guillen-[phone]/Health longterm, active care coordination(Confirmed) Active Seizure-like activity(Confirmed) Active Steatosis of liver(Confirmed) Active Vasovagal syncope(Confirmed) Active Social History Social History Type Response Smoking Status Never smoker entered on: 01/14/16 Sex Female
--- OUTSIDE RECORDS SUMMARY | 2023-07-02 18:48 | XMS_ITS | Continuity of Care Document ---
Author Name Unknown Organization [facility] [place] Address [address] [place] [address]- Care Team Providers Care Scientific Programmer Name Role Phone Vanessa Sharif DO Primary Care Physician [id number] Date(s): 09/03/19 - 12/29/[address] [address]- [facility] Attending Physician: Dottie Vazquez Admitting Physician: Dottie Vazquez Referring Physician: Vanessa Sharif DO Allergies, Adverse [...] Stop 12/24/20 11:35:00 EDT, 12/25/19 11:34:00 EDT, [facility] Start Date: 12/25/19 Stop Date: 12/24/20 Status: Ordered albuterol 0.083% inhalation solution 3 mL = 2.5 mg, Inhalation, Every 6 hours, PRN for wheezing, # 60 each, 0 Refills, Maintenance, 12/20/19 10:09:00 EDT, Solution, [facility]., 168, cm, 11/19/19 13:14:00 EDT, [...] mg, By Mouth, Daily, please label in irish. discontinue the atorvastatin, # 30 tablet, 5 Refills, Maintenance, 12/18/19 16:05:00 EDT, Tablet, [facility], 168, cm, 11/19/19 13:14:00 EDT, [...] MANUEL, # 50 Gm, 0 Refills, Acute, [facility], 25, APLICAR A LA PIEL AL AREA AFECTADA DOS VECES AL MANUEL, 168, cm, 09/24/19 13:53:00 EST, Height, 89.2, kg, 06/19/19 1:03:00 EDT, Start Date: 10/23/19 Status: Ordered Claritin 10 mg oral tablet 10 mg, By Mouth, Daily, # 90 tablet, Refills 0, Tot. Refills 0, Maintenance, 12/18/19 14:20:00 EDT,Route to Pharmacy Electronically, [facility], 168, cm, 11/19/19 13:14:00 EDT, [...] NECESARIO, # 30 Gm, 0 Refills, Acute, [facility], 14, APLICAR A LA PIEL AL AREA AFECTADA (DE LA ERUPCION EN EL PIE DERECHO) D..Sam Start Date: 10/23/19 Status: Ordered diclofenac 1% topical gel 1 application, Topically, 4 times a day, PRN for pain, not to exceed 8 grams/day/single joint of upper extremities, # 100 Gm, 0 Refills, Maintenance, 12/18/19 18:21:00 EDT, Gel, [facility], 168, cm, 11/19/19 13:14:00 EDT, Height, 89.2,... Start Date: 12/18/19 Status: Ordered Flovent HFA 220 mcg/inh inhalation aerosol 1 puffs, Inhalation, 2 times a day, # 12 Gm, 3 Refills, Maintenance, 12/20/19 13:42:00 EDT, Aerosol, [facility] 168, cm, 11/19/19 13:14:00 EDT, Height, 89.2, kg, 06/19/19 1:03:00 EDT, Dry Weight Start Date: 12/20/19 Status: Ordered Freestyle Lancets See Instructions, # 100 each, Refills 11, Tot. Refills 11, Maintenance, use as directed for Type 2 Diabetes Mellitus Test 3 times/day Instructions in Guinean, 08/09/19 10:57:52 EST, Compound Start Date: 08/09/19 Stop Date: 08/03/20 Status: Ordered Freestyle Lite Test Strips See Instructions, # 100 each, Refills 11, Tot. Refills 11, Maintenance, use as directed for Type 2 Diabetes Mellitus Test 3 times/day Instructions in Guinean, 08/09/19 10:57:52 EST, Compound Start Date: 08/09/19 Stop Date: 08/03/20 Status: Ordered gabapentin 600 mg oral tablet 1 tablet = 600 mg, By Mouth, 3 times a day, Guinean label, # 270 tablet, 5 Refills, Maintenance, 11/19/19 13:56:00 EDT, Tablet, [facility]., 168, cm, 11/19/19 13:14:00 EDT, Height, 89.2, kg, 06/19/19 1:03:00 EDT, Dry Weight Start Date: 11/19/19 Stop Date: 05/12/21 Status: Ordered levothyroxine 125 mcg (0.125 mg) oral tablet 1 tablet = 125 mcg, By Mouth, Daily, Guinean label, # 30 tablet, 5 Refills, Maintenance, 09/10/19 15:16:00 EST, Tablet, [facility]., 168, cm, 09/10/19 13:44:00 EST, Height, 89.2, kg, 06/19/19 1:03:00 EDT, Dry Weight Start Date: 09/10/19 Status: Ordered Linzess 72 mcg oral capsule 0 Refills, Maintenance, 10/24/19 13:52:00 EST Start Date: 10/24/19 Status: Ordered lisinopril 30 mg oral tablet 1 tablet = 30 mg, By Mouth, Daily, dose increase, # 30 tablet, 11 Refills, Maintenance, 08/27/19 13:59:38 EST, [facility], 168, cm, 08/20/19 13:32:17 EST, Height, 89.2, kg, 06/19/19 1:03:24 EDT, Dry Weight Start Date: 08/27/19 Status: Ordered metFORMIN 500 mg oral tablet, extended release See Instructions, Take 1000 mg (2 tabs) in the morning and 500 mg (1 tab) in the evening; with food; Guinean label, # 90 tablet, 5 Refills, Maintenance, 12/25/19 14:51:00 EDT, [facility], 168, cm, 11/19/19 13:14:00 EDT, [...] 12/20/19 10:09:00 EDT, Route to Pharmacy Electronically, [facility], 168, cm, 11/19/19 13:14:00EDT, Height, [...] capsule = 40 mg, By Mouth, Daily, Guinean label please, # 60 capsule, 2 Refills, Maintenance, 12/06/19 13:25:00 EDT, EC Capsule, [facility], please discontinue amoxicillin/metronidazole/lansoprazole combination, 168, cm, 11/19/19 13:... Start Date: 12/06/19 Stop Date: 03/05/20 Status: Ordered ProAir HFA 90 mcg/inh inhalation aerosol with adapter 1, puffs, Inhalation, Every 4 hours, PRN, # 8.5 Gm, Refills 5, Tot. Refills 5, Maintenance, 12/20/19 10:09:00 EDT, Aerosol, Route to Pharmacy Electronically, [id number], [facility], 168, cm, 11/19/19 13:14:00... Start [...] 2 hours up to amaximum of 2; Guinean label please, # 9 tablet, 0 Refills, Maintenance, 09/10/19 15:12:00 EST, Tablet, [facility], 168, cm, 09/10/19 13... Start Date: 09/10/19 Status: Ordered Vitamin D3 1000 intl units oral capsule 1 capsule = 1,000 International_Units, By Mouth, Daily, Guinean label please; with food, # 30 capsule, 11 Refills, Maintenance, 12/08/19 10:59:00 EDT, Capsule, [facility] 168, cm, 11/19/19 13:14:00 EDT, Height, 89.2, kg, 06/19/19 1:03... Start Date: 12/08/19 Stop Date: 12/02/20 Status: Ordered Problem List Condition Effective Dates Status Health Status Inform ant Chronic pelvic pain(Confirmed) Active Chronic renal insufficiency(Confirmed) Active Diabetes(Confirmed) Active Fibromyalgia(Confirmed) Active Hypertension(Confirmed) Active Hypertriglyceridemia; mild(Confirmed) Active Hypothyroid(Confirmed) Active Major depression, chronic(Confirmed) Active KIRAN (obstructive sleep apnea)(Confirmed) Active Palpitations(Confirmed) Active *BHN/BHKRISTINE/Vasquez Guillen-[phone]/Health shelter, active care coordination(Confirmed) Active Seizure-like activity(Confirmed) Active Steatosis of liver(Confirmed) Active Vasovagal syncope(Confirmed) Active Social History Social History Type Response Smoking Status Never smoker entered on: 01/14/16 Sex Female
--- OUTSIDE RECORDS SUMMARY | 2023-07-02 18:48 | XMS_ITS | Continuity of Care Document ---
Author Name Unknown Organization [facility] Address [address] [place] [address]- Care Team Providers Care Personal Loan Specialist Name Role Phone Vanessa Sharif DO Primary Care Physician Encounter [facility] Date(s): 03/12/20 - 04/11/20 [facility] [address] [place] [address]- [facility] Allergies, Adverse Reactions, Alerts Substance Reaction [...] 30 days, Not to exceed 2000 mg/day. Burmese label.,# 90 tablet, 2 Refills, Acute 06/09/20 10:37:00 EDT, 03/11/20 10:37:00 EDT, [facility]., 168, c... Start Date: 03/11/20 Stop Date: 06/09/20 Status: Ordered albuterol 0.083% inhalation solution 3 mL = 2.5 mg, Inhalation, Every 6 hours, PRN for wheezing, # 60 each, 0 Refills, Maintenance, 12/20/19 10:09:00 EDT, Solution, [facility], cm, 11/19/19 13:14:00 EDT, Height, [...] 5 Refills, Maintenance, 12/18/19 16:05:00 EDT, Tablet, [facility] 168, cm, 11/19/19 13:14:00 EDT, Height, 89.2, [...] MANUEL, # 50 Gm, 0 Refills, Acute, [facility], 25, APLICAR A LA PIEL AL AREA AFECTADA DOS VECES AL MANUEL, 168, cm, 09/24/19 13:53:00 EST, Height, 89.2, kg, 06/19/19 1:03:00 EDT, Dr... Start Date: 10/23/19 Status: Ordered Claritin 10 mg oral tablet 10 mg, By Mouth, Daily, # 90 tablet, Refills 0, Tot. Refills 0, Maintenance, 04/01/20 14:09:00 EDT,Route to Pharmacy Electronically, [facility] 168, cm, 11/19/19 13:14:00 EDT, Height, 89.2, [...] NECESARIO, # 30 Gm, 0 Refills, Acute, [facility], 14, APLICAR A LA PIEL AL AREA AFECTADA (DE LA ERUPCION EN EL PIE DERECHO) D... Start Date: 10/23/19 Status: Ordered diclofenac 1% topical gel 1 application, Topically, 4 times a day, PRN for pain, not to exceed 8 grams/day/single joint of upper extremities, # 100 Gm, 0 Refills, Maintenance, 01/19/20 19:54:00 EDT, Gel, [facility] 168, cm, 11/19/19 13:14:00 EDT, Height, 89.2,... Start Date: 01/19/20 Status: Ordered Flovent HFA 220 mcg/inh inhalation aerosol 1 puffs, Inhalation, 2 times a day, # 12 Gm, 3 Refills, Maintenance, 12/20/19 13:42:00 EDT, Aerosol, [facility] 168, cm, 11/19/19 13:14:00 EDT, Height, 89.2, kg, 06/19/19 1:03:00 EDT, Dry Weight Start Date: 12/20/19 Status: Ordered Freestyle Lancets See Instructions, # 100 each, Refills 11, Tot. Refills 11, Maintenance, use as directed for Type 2 Diabetes Mellitus Test 3 times/day Instructions in Burmese, 08/09/19 10:57:52 EST, Compound Start Date: 08/09/19 Stop Date: 08/03/20 Status: Ordered Freestyle Lite Test Strips See Instructions, # 100 each, Refills 11, Tot. Refills 11, Maintenance, use as directed for Type 2 Diabetes Mellitus Test 3 times/day Instructions in Burmese, 08/09/19 10:57:52 EST, Compound Start Date: 08/09/19 Stop Date: 08/03/20 Status: Ordered gabapentin 600 mg oral tablet 1 tablet = 600 mg, By Mouth, 3 times a day, Burmese label, # 270 tablet, 5 Refills, Maintenance, 11/19/19 13:56:00 EDT, Tablet, [facility] 168, cm, 11/19/19 13:14:00 EDT, Height, 89.2, kg, 06/19/19 1:03:00 EDT, Dry Weight Start Date: 11/19/19 Stop Date: 05/12/21 Status: Ordered levothyroxine 125 mcg (0.125 mg) oral tablet 1 tablet = 125 mcg, By Mouth, Daily, Burmese label, # 30 tablet, 5 Refills, Maintenance, 09/10/19 15:16:00 EST, Tablet, [facility] 168, cm, 09/10/19 13:44:00 EST, Height, 89.2, kg, 06/19/19 1:03:00 EDT, Dry Weight Start Date: 09/10/19 Status: Ordered Linzess 72 mcg oral capsule 0 Refills, Maintenance, 10/24/19 13:52:00 EST Start Date: 10/24/19 Status: Ordered lisinopril 30 mg oral tablet 1 tablet = 30 mg, By Mouth, Daily, dose increase, # 30 tablet, 11 Refills, Maintenance, 08/27/19 13:59:38 EST, [facility] 168, cm, 08/20/19 13:32:17 EST, Height, 89.2, kg, 06/19/19 1:03:24 EDT, Dry Weight Start Date: 08/27/19 Status: Ordered metFORMIN 500 mg oral tablet, extended release See Instructions, Take 1000 mg (2 tabs) in the morning and 500 mg (1 tab) in the evening; with food; Burmese label, # 90 tablet, 5 Refills, Maintenance, 12/25/19 14:51:00 EDT, [facility], 168, cm, 11/19/19 13:14:00 EDT, [...] 12/20/19 10:09:00 EDT, Route to Pharmacy Electronically, [facility], 168, cm, 11/19/19 13:14:00EDT, Height, [...] capsule = 40 mg, By Mouth, Daily, Burmese label please, # 60 capsule, 2 Refills, Maintenance, 12/06/19 13:25:00 EDT, EC Capsule, [facility], please discontinue amoxicillin/metronidazole/lansoprazole combination, 168, cm, 11/19/19 13:... Start Date: 12/06/19 Stop Date: 03/05/20 Status: Ordered omeprazole 40 mg oral enteric coated capsule 2 capsule = 80 mg, By Mouth, Daily, via [facility], # 60 capsule, 0 Refills, Maintenance, 01/07/20 13:53:00 EDT, CR Capsule Start Date: 01/07/20 Status: Ordered ProAir HFA 90 mcg/inh inhalation aerosol with adapter 1, puffs, Inhalation, Every 4 hours, PRN, # 8.5 Gm, Refills 5, Tot. Refills 5, Maintenance, 12/20/19 10:09:00 EDT, Aerosol, Route to Pharmacy Electronically, [id number], [facility] 168, cm, 11/19/19 13:14:00... Start [...] 2 hours up to amaximum of 2; Burmese label please, # 9 tablet, 0 Refills, Maintenance, 09/10/19 15:12:00 EST, Tablet, [facility] 168, cm, 09/10/19 13... Start Date: 09/10/19 Status: Ordered Vitamin D3 1000 intl units oral capsule 1 capsule = 1,000 International_Units, By Mouth, Daily, Burmese label please; with food, # 30 capsule, 11 Refills, Maintenance, 12/08/19 10:59:00 EDT, Capsule, [facility] 168, cm, 11/19/19 13:14:00 [...] ) severe(Confirmed) 2017 Active Palpitations(Confirmed) Active *BHN/BHKRISTINE/Vasquez Guillen-[phone]/Health [facility], active care coordination(Confirmed) Active Seizure-like activity(Confirmed) Active Steatosis of liver(Confirmed) Active Vasovagal syncope(Confirmed) Active Social History Social History Type Response Smoking Status Never smoker entered on: 01/14/16 Sex Female
--- OUTSIDE RECORDS SUMMARY | 2023-07-02 18:48 | XMS_ITS | Continuity of Care Document ---
Author Name Unknown Organization [facility] Address [address] [place] [address]- Care Team Providers Care Non Food Receiving Clerk Name Role Phone Layla Chung MD Primary Care Physician Encounter [facility] Date(s): 02/22/23 - 03/31/23 [facility] [address] [place] [id number]- Attending Physician: Paul Carlin MD Admitting Physician: Paul Carlin MD Allergies, Adverse Reactions, Alerts Substance Reaction Severity Status penicillin itchy/rash/blisters Active Percocet 5/325 1 C/O: itching Active amLODIPine ankle edema Active aspirin rash/itchy Active 1pt states still [...] 0 Refills, Maintenance, 12/20/19 10:09:00 EDT, Solution, [facility], 168, cm, 11/19/19 13:14:00 EDT, Height, 89.2, kg, 06/19/19 1:03:00 EDT, Dry Weight Start Date: 12/20/19 Status: Ordered albuterol CFC free 90 mcg/inh inhalation aerosol 2, puffs, Inhalation, 4 times a day, PRN, # 18 Gm, Refills 1, Tot. Refills 1, Maintenance, 02/08/2314:39:00 EDT, Aerosol, Route to Pharmacy Electronically, [id number], [facility], 163, cm, 02/08/23 13:53:00 E... Start [...] mg, By Mouth, Daily, please label in romanian., # 30 tablet, 11 Refills, Maintenance, 06/23/20 20:27:00 EDT, Tablet, [facility], 168, cm, 11/19/19 13:14:00 EDT, Height, [...] EST, Compound Start Date: 08/19/19 Status: Ordered Diagnosis : Ambulatory dysfunction Rolling [...] Diabetes Mellitus Test 3 times/day Instructions in Danish, 11/10/20 9:37:00 EST, Compound, 168, cm,11/19/19 13:14:00 EDT, Height, 89.2, kg, 06/19/19... Start Date: 11/10/20 Stop Date: 11/05/21 Status: Ordered Freestyle Lite Test Strips See Instructions, # 100 each, Refills 6, Tot. Refills 6, Maintenance, use as directed for Type 2 Diabetes Mellitus Test 3 times/day Instructions in Danish, 11/10/20 9:41:00 EST, Duplicate rx-Original rx sent 06/23/20. Remaining refills sent., [place]... Start Date: 11/10/20 Stop Date: 06/08/21 Status: Ordered gabapentin 300 mg oral capsule TAKE 1 CAPSULE BY MOUTH THREE TIMES DAILY Start Date: 02/02/23 Status: Ordered levothyroxine 125 mcg (0.125 mg) oral tablet 1 tablet = 125 mcg, By Mouth, Daily, # 90 tablet, 1 Refills, Maintenance, 02/03/23 6:24:00 EDT, Tablet, [facility] Partial fill upon patient request if the prescription is for a schedule II opioid drug., 163, cm, 01/13/23 15:11:00 EDT... Start Date: 02/03/23 Stop Date: 08/02/23 Status: Ordered lisinopril 40 mg oral tablet 1 tablet = 40 mg, By Mouth, Daily, Increased dose from 20mg to 40mg qhs. LABEL IN IRAQI, # 90 tablet, 1 Refills, Maintenance, 03/21/23 [...] tablet, extended release See Instructions, LABEL IN IRAQI First three days take 1 tablet daily [...] 1 Refills, Maintenance, 01/31/23 12:04:00 EDT, Suspension, [facility] Partial fill upon patient request if the prescription is for aschedule II opioid drug., 163, cm, 01/13/23 15:11:0... Start Date: 01/31/23 Stop Date: 07/30/23 Status: Ordered Preparation H 0.25% rectal suppository See Instructions, To use daily PRN for hemorrhoidal pain, # 10 supp, 0 Refills, Maintenance, 03/21/23 9:41:00 EDT, [facility] Partial fill [...] severe Confirmed 2017 Active Palpitations Confirmed Active *N/CP/KRISTINE-Ernesto Denney-[phone]/[facility], active care coordination Confirmed Active Colonic polyp Confirmed Active Seizure-like activity Confirmed Active Steatosis of liver Confirmed Active Vasovagal syncope Confirmed Active 1Problem added by Discern Expert Social History Social History Type Response Smoking Status Never smoker entered on: 01/14/16 Sex Female Patient Care team information Care Team Personnel Name: Germania Kelly RN Position: [facility] RN Member Role: Primary Care Nurse Name: Shelly Yo RN Position: [facility] SN RN Member Role: Primary Care Nurse Name: Layla Chung MD Position: [facility] Physician - Primary Care Member Role: PCP Address: Address: [address] [place] [id number] Name: Charis Schmitt RN Position: [facility] RN Member Role: Primary Care Nurse Name: Flaca Roe RN Position: [facility] RN Member Role: Primary Care Nurse Care Team Related Persons Name: MIS HARVEY Address: home [address] [place] [address] Name: ADRIAN HARVEY Address: [place] [address] Name: JACQUELINE HARVEY Address: home [address] [address]
--- OUTSIDE RECORDS SUMMARY | 2023-07-02 18:48 | XMS_ITS | Continuity of Care Document ---
Author Name Unknown Organization [facility] Address [address] [place] [address]- Care Team Providers Care Horticultural Manager Name Role Phone Vanessa Sharif DO Primary Care Physician [facility] [facility] [place] 11/29/19 - 12/09/[address] [address]- [facility] Attending Physician: Silvino Vance Admitting Physician: AdmSilvino hicks Referring Physician: AdmtrSilvino Allergies, Adverse Reactions, Alerts [...] Stop 01/18/20 23:00:00 EDT, 11/18/19 7:10:00 EDT, [facility] Start Date: 11/18/19 Stop Date: 01/18/20 [...] mg, By Mouth, Daily, please label in serbian. discontinue the atorvastatin, # 30 tablet, 6 [...] MANUEL, # 50 Gm, 0 Refills, Acute, [facility], 25, APLICAR A LA PIEL AL AREA AFECTADA DOS VECES AL MANUEL, 168, cm, 09/24/19 13:53:00 EST, Height, 89.2, kg, 06/19/19 1:03:00 EDT, . Start Date: 10/23/19 Status: Ordered Claritin 10 mg oral tablet 10 mg, By Mouth, Daily, # 90 tablet, Refills 4, Tot. Refills 4, Maintenance, 12/13/18 11:00:05 EDT,Route to Pharmacy Electronically, [id number], [facility] Start Date: 12/13/18 Stop Date: 03/07/20 Status: [...] NECESARIO, # 30 Gm, 0 Refills, Acute, [facility], 14, APLICAR A LA PIEL [...] Diabetes Mellitus Test 3 times/day Instructions in Serbian, 08/09/19 10:57:52 EST, Compound Start Date: 08/09/19 Stop Date: 08/03/20 Status: Ordered Freestyle Lite Test Strips See Instructions, # 100 each, Refills 11, Tot. Refills 11, Maintenance, use as directed for Type 2 Diabetes Mellitus Test 3 times/day Instructions in Serbian, 08/09/19 10:57:52 EST, Compound Start Date: 08/09/19 Stop Date: 08/03/20 Status: Ordered gabapentin 600 mg oral tablet 1 tablet = 600 mg, By Mouth, 3 times a day, Serbian label, # 270 tablet, 5 Refills, Maintenance, 11/19/19 13:56:00 EDT, Tablet, [facility] 168, cm, 11/19/19 13:14:00 EDT, Height, 89.2, kg, 06/19/19 1:03:00 EDT, Dry Weight Start Date: 11/19/19 Stop Date: 05/12/21 Status: Ordered levothyroxine 125 mcg (0.125 mg) oral tablet 1 tablet = 125 mcg, By Mouth, Daily, Serbian label, # 30 tablet, 5 Refills, Maintenance, 09/10/19 15:16:00 EST, Tablet, [facility], 168, cm, 09/10/19 13:44:00 EST, Height, 89.2, kg, 06/19/19 1:03:00 EDT, Dry Weight Start Date: 09/10/19 Status: Ordered Linzess 72 mcg oral capsule 0 Refills, Maintenance, 10/24/19 13:52:00 EST Start Date: 10/24/19 Status: Ordered lisinopril 30 mg oral tablet 1 tablet = 30 mg, By Mouth, Daily, dose increase, # 30 tablet, 11 Refills, Maintenance, 08/27/19 13:59:38 EST, [facility] 168, cm, 08/20/19 13:32:17 EST, Height, 89.2, kg, 06/19/19 1:03:24 EDT, Dry Weight Start Date: 08/27/19 Status: Ordered metFORMIN 500 mg oral tablet, extended release See Instructions, ULYSSES 2 TABLETAS POR LA BOCA CADA MANUEL, # 60 tablet, 5 Refills, Maintenance, [facility], 168, cm, 09/10/19 13:44:00 EST, Height, 89.2, [...] 07/24/19 9:39:34 EST, Route to Pharmacy Electronically, [id number], [facility] Start Date: 07/24/19 Stop Date: 01/20/20 Status: Ordered naproxen 500 mg oral tablet 1 tablet = 500 mg, By Mouth, 2 times a day, # 60 tablet, 0 Refills, Maintenance, 10/30/19 10:57:00 EST, Tablet Start Date: 10/30/19 Status: Ordered omeprazole 20 mg oral enteric coated capsule 2 capsule = 40 mg, By Mouth, Daily, Serbian label please, # 60 capsule, 2 Refills, Maintenance, 12/06/19 13:25:00 EDT, EC Capsule, [facility], please discontinue amoxicillin/metronidazole/lansoprazole combination, 168, cm, 11/19/19 13:... Start Date: 12/06/19 Stop Date: 03/05/20 Status: Ordered ProAir HFA 90 mcg/inh inhalation aerosol with adapter 1, puffs, Inhalation, Every 4 hours, PRN, # 8.5 Gm, Refills 5, Tot. Refills 5, Maintenance, 12/13/18 10:59:41 EDT, Aerosol, Route to Pharmacy Electronically, [id number], [facility] Start Date: 12/13/18 Status: Ordered QUEtiapine 300 [...] 2 hours up to amaximum of 2; Serbian label please, # 9 tablet, 0 Refills, Maintenance, 09/10/19 15:12:00 EST, Tablet, [facility] 168, cm, 09/10/19 13... Start Date: 09/10/19 Status: Ordered Vitamin D3 1000 intl units oral capsule 1 capsule = 1,000 International_Units, By Mouth, Daily, Serbian label please; with food, # 30 capsule, 11 Refills, Maintenance, 12/08/19 10:59:00 EDT, Capsule, [facility] 168, cm, 11/19/19 13:14:00 EDT, Height, 89.2, kg, 06/19/19 1:03... Start Date: 12/08/19 Stop Date: 12/02/20 Status: Ordered Problem List Condition Effective Dates Status Health Status Inform ant Chronic pelvic pain(Confirmed) Active Chronic renal insufficiency(Confirmed) Active Diabetes(Confirmed) Active Fibromyalgia(Confirmed) Active Hypertension(Confirmed) Active Hypertriglyceridemia; mild(Confirmed) Active Hypothyroid(Confirmed) Active Major depression, chronic(Confirmed) Active KIRAN (obstructive sleep apnea)(Confirmed) Active Palpitations(Confirmed) Active *BHN/CP/Vasquez Guillen-[phone]/Health intermediate, active care coordination(Confirmed) Active Seizure-like activity(Confirmed) Active Steatosis of liver(Confirmed) Active Vasovagal syncope(Confirmed) Active Social History Social History Type Response Smoking Status Never smoker entered on: 01/14/16 Sex Female
--- OUTSIDE RECORDS SUMMARY | 2023-07-02 18:48 | XMS_ITS | Continuity of Care Document ---
Author Name Unknown Organization [facility] Address [address] [place] [address]- Care Team Providers Care Char Filter Tank Tender Name Role Phone Vanessa Sharif DO Primary Care Physician Encounter [facility] Date(s): 10/03/19 - 11/07/19 [facility] [address] [place] [id number]- [facility] Attending Physician: Paul Carlin MD Admitting Physician: [...] DE TYLENOL/APAP/ACETAMINOPHEN), # 100 tablet, 1 Refills, Acute, [facility], 168, cm, 09/24/19 13:53:00 EST, Height, 89.2, kg, 10... Start Date: 10/01/19 Status: Ordered albuterol 0.083% inhalation solution 3 [...] mg, By Mouth, Daily, please label in algerian. discontinue the atorvastatin, # 30 tablet, 6 [...] MANUEL, # 50 Gm, 0 Refills, Acute, [facility], 25, APLICAR A LA PIEL AL AREA AFECTADA DOS VECES AL MANUEL, 168, cm, 09/24/19 13:53:00 EST, Height, 89.2, kg, 06/19/19 1:03:00 EDT, . Start Date: 10/23/19 Status: Ordered Claritin 10 mg oral tablet 10 mg, By Mouth, Daily, # 90 tablet, Refills 4, Tot. Refills 4, Maintenance, 12/13/18 11:00:05 EDT,Route to Pharmacy Electronically, [id number], [facility] Start Date: 12/13/18 Stop Date: 03/07/20 Status: [...] NECESARIO, # 30 Gm, 0 Refills, Acute, [facility], 14, APLICAR A LA PIEL [...] Diabetes Mellitus Test 3 times/day Instructions in Bahraini, 08/09/19 10:57:52 EST, Compound Start Date: 08/09/19 Stop Date: 08/03/20 Status: Ordered Freestyle Lite Test Strips See Instructions, # 100 each, Refills 11, Tot. Refills 11, Maintenance, use as directed for Type 2 Diabetes Mellitus Test 3 times/day Instructions in Bahraini, 08/09/19 10:57:52 EST, Compound Start Date: 08/09/19 Stop Date: 08/03/20 Status: Ordered gabapentin 600 mg oral tablet 1 tablet = 600 mg, By Mouth, 3 times a day, Bahraini label, # 270 tablet, 5 Refills, Maintenance, 12/13/18 10:59:58 EDT, Tablet Start Date: 12/13/18 Stop Date: 06/05/20 Status: Ordered levothyroxine 125 mcg (0.125 mg) oral tablet 1 tablet = 125 mcg, By Mouth, Daily, Bahraini label, # 30 tablet, 5 Refills, Maintenance, 09/10/19 15:16:00 EST, Tablet, [facility], 168, cm, 09/10/19 13:44:00 EST, Height, 89.2, kg, 06/19/19 1:03:00 EDT, Dry Weight Start Date: 09/10/19 Status: Ordered Linzess 72 mcg oral capsule 0 Refills, Maintenance, 10/24/19 13:52:00 EST Start Date: 10/24/19 Status: Ordered lisinopril 30 mg oral tablet 1 tablet = 30 mg, By Mouth, Daily, dose increase, # 30 tablet, 11 Refills, Maintenance, 08/27/19 13:59:38 EST, [facility], 168, cm, 08/20/19 13:32:17 EST, Height, 89.2, kg, 06/19/19 1:03:24 EDT, Dry Weight Start Date: 08/27/19 Status: Ordered metFORMIN 500 mg oral tablet, extended release See Instructions, ULYSSES 2 TABLETAS POR LA BOCA CADA MANUEL, # 60 tablet, 5 Refills, Maintenance, [facility], 168, cm, 09/10/19 13:44:00 EST, Height, [...] 07/24/19 9:39:34 EST, Route to Pharmacy Electronically, [id number], [facility] Start Date: 07/24/19 Stop Date: 01/20/20 Status: Ordered naproxen 500 mg oral tablet 1 tablet = 500 mg, By Mouth, 2 times a day, # 60 tablet, 0 Refills, Maintenance, 10/30/19 10:57:00 EST, Tablet Start Date: 10/30/19 Status: Ordered omeprazole 20 mg oral enteric coated capsule 2 capsule = 40 mg, By Mouth, Daily, # 60 capsule, 3 Refills, Maintenance, 07/09/19 9:47:51 EDT, EC Capsule, please discontinue amoxicillin/metronidazole/lansoprazole combination Start Date: 07/09/19 Stop Date: 11/06/19 Status: Ordered ProAir HFA 90 mcg/inh inhalation aerosol with adapter 1, puffs, Inhalation, Every 4 hours, PRN, # 8.5 Gm, Refills 5, Tot. Refills 5, Maintenance, 12/13/18 10:59:41 EDT, Aerosol, Route to Pharmacy Electronically, [id number], [facility] Start Date: 12/13/18 Status: Ordered propranolol 80 mg oral capsule, extended release 80 mg, 1, capsule, By Mouth, Daily, dose increase, # 30 capsule, Refills 11, Tot. Refills 11, Maintenance, 09/24/19 13:15:00 EST, Route to Pharmacy Electronically, [facility], 168, cm, 09/10/19 13:44:00 EST, Height, 89.2, kg, 06/19/19... Start Date: 09/24/19 Status: Ordered QUEtiapine 300 mg oral tablet, [...] 2 hours up to amaximum of 2; Bahraini label please, # 9 tablet, 0 Refills, Maintenance, 09/10/19 15:12:00 EST, Tablet, [facility], 168, cm, 09/10/19 13... Start Date: 09/10/19 Status: Ordered Vitamin D3 1000 intl units oral capsule 1 capsule = 1,000 International_Units, By Mouth, Daily, # 30 capsule, 11 Refills, Maintenance, 12/13/18 10:59:45 EDT, Capsule Start Date: 12/13/18 Stop Date: 12/08/19 Status: Ordered Problem List Condition Effective Dates Status Health Status Inform ant Chronic pelvic pain(Confirmed) Active Chronic renal insufficiency(Confirmed) Active Diabetes(Confirmed) Active Fibromyalgia(Confirmed) Active Hypertension(Confirmed) Active Hypertriglyceridemia; mild(Confirmed) Active Hypothyroid(Confirmed) Active Major depression, chronic(Confirmed) Active KIRAN (obstructive sleep apnea)(Confirmed) Active Palpitations(Confirmed) Active *BHN/BHCP/Vasquez Guillen-[phone]/Health alf, active care coordination(Confirmed) Active Seizure-like activity(Confirmed) Active Steatosis of liver(Confirmed) Active Vasovagal syncope(Confirmed) Active Social History Social History Type Response Smoking Status Never smoker entered on: 01/14/16 Sex Female
--- OUTSIDE RECORDS SUMMARY | 2023-07-02 18:48 | XMS_ITS | Continuity of Care Document ---
Author Name Unknown Organization [facility] Address [address] [place] [address]- Care Team Providers Care Director Workforce Management Name Role Phone Vanessa Sharif DO Primary Care Physician [place] [facility] 08/20[place]19 - 10/24/19 [facility] [address] [place] [address]- [facility] Attending Physician: Not on Staff, Attending MD Allergies, Adverse Reactions, Alerts Substance Reaction [...] TYLENOL/APAP/ACETAMINOPHEN), # 100 tablet, 1 Refills, Acute, [facility], 168, cm, 09/24/19 13:53:00 EST, Height, [...] mg, By Mouth, Daily, please label in niuean. discontinue the atorvastatin, # 30 tablet, 6 [...] MANUEL, # 50 Gm, 0 Refills, Acute, [facility], [facility], APLICAR A LA PIEL AL AREA AFECTADA DOS VECES AL MANUEL, 168, cm, 09/24/19 13:53:00 EST, Height, 89.2, kg, 06/19/19 1:03:00 EDT, . Start Date: 10/23/19 Status: Ordered Claritin 10 mg oral tablet 10 mg, By Mouth, Daily, # 90 tablet, Refills 4, Tot. Refills 4, Maintenance, 12/13/18 11:00:05 EDT,Route to Pharmacy Electronically, [id number], [facility] Start Date: 12/13/18 Stop Date: 03/07/20 Status: Ordered clonazePAM 0.5 mg oral tablet 1 tablet = 0.5 mg, By Mouth, Daily at bedtime, Dr. Dale, 0 Refills, Maintenance, 01/28/16 14:10:50 Start Date: 01/28/16 Status: Ordered clotrimazole 1% topical cream See Instructions, APLICAR A LA PIEL AL AREA AFECTADA (DE LA ERUPCION EN EL PIE DERECHO) DOS VECES AL MANUEL CUANDO SEA NECESARIO, # 30 Gm, 0 Refills, Acute, [facility], 14, APLICAR A LA PIEL AL AREA [...] Diabetes Mellitus Test 3 times/day Instructions in Barbadian, 08/09/19 10:57:52 EST, Compound Start Date: 08/09/19 Stop Date: 08/03/20 Status: Ordered Freestyle Lite Test Strips See Instructions, # 100 each, Refills 11, Tot. Refills 11, Maintenance, use as directed for Type 2 Diabetes Mellitus Test 3 times/day Instructions in Barbadian, 08/09/19 10:57:52 EST, Compound Start Date: 08/09/19 Stop Date: 08/03/20 Status: Ordered gabapentin 600 mg oral tablet 1 tablet = 600 mg, By Mouth, 3 times a day, Barbadian label, # 270 tablet, 5 Refills, Maintenance, 12/13/18 10:59:58 EDT, Tablet Start Date: 12/13/18 Stop Date: 06/05/20 Status: Ordered levothyroxine 125 mcg (0.125 mg) oral tablet 1 tablet = 125 mcg, By Mouth, Daily, Barbadian label, # 30 tablet, 5 Refills, Maintenance, 09/10/19 15:16:00 EST, Tablet, [facility] 168, cm, 09/10/19 13:44:00 EST, Height, 89.2, kg, 06/19/19 1:03:00 EDT, Dry Weight Start Date: 09/10/19 Status: Ordered Linzess 72 mcg oral capsule 0 Refills, Maintenance, 10/24/19 13:52:00 EST Start Date: 10/24/19 Status: Ordered lisinopril 30 mg oral tablet 1 tablet = 30 mg, By Mouth, Daily, dose increase, # 30 tablet, 11 Refills, Maintenance, 08/27/19 13:59:38 EST, [facility] 168, cm, 08/20/19 13:32:17 EST, Height, 89.2, kg, 06/19/19 1:03:24 EDT, Dry Weight Start Date: 08/27/19 Status: Ordered metFORMIN 500 mg oral tablet, extended release See Instructions, ULYSSES 2 TABLETAS POR LA BOCA CADA MANUEL, # 60 tablet, 5 Refills, Maintenance, [facility], 168, cm, 09/10/19 13:44:00 EST, Height, 89.2, [...] 07/24/19 9:39:34 EST, Route to Pharmacy Electronically, [id number], [facility] Start Date: 07/24/19 Stop Date: 01/20/20 Status: Ordered omeprazole 20 mg oral enteric [...] 10:59:41 EDT, Aerosol, Route to Pharmacy Electronically, [id number], [facility] Start Date: 12/13/18 Status: Ordered propranolol 80 mg oral capsule, extended release 80 mg, 1, capsule, By Mouth, Daily, dose increase, # 30 capsule, Refills 11, Tot. Refills 11, Maintenance, 09/24/19 13:15:00 EST, Route to Pharmacy Electronically, [facility], 168, cm, 09/10/19 13:44:00 EST, Height, 89.2, kg, 06/19/19... Start Date: 09/24/19 Status: Ordered QUEtiapine 50 mg oral tablet 1 tablet = 50 mg, By Mouth, 2 times a day, For anxiety or delusions, PRN for anxiety or delusions, # 60 tablet, 0 Refills, Maintenance, 09/09/19 8:22:00 EST, Tablet Start Date: 09/09/19 Status: Ordered SUMAtriptan 50 mg oral tablet 1 tablet = 50 mg, By Mouth, Daily, PRN for migraine headache, may repeat dose after 2 hours up to amaximum of 2; Barbadian label please, # 9 tablet, 0 Refills, Maintenance, 09/10/19 15:12:00 EST, Tablet, [facility], 168, cm, 09/10/19 13... Start Date: 09/10/19 [...] (obstructive sleep apnea)(Confirmed) Active Palpitations(Confirmed) Active *BHN/BHKRISTINE/Vasquez Guillen-[phone]/Health assisted, active care coordination(Confirmed) Active Seizure-like activity(Confirmed) Active Steatosis of liver(Confirmed) Active Vasovagal syncope(Confirmed) Active Social History Social History Type Response Smoking Status Never smoker entered on: 01/14/16 Sex Female
--- OUTSIDE RECORDS SUMMARY | 2023-07-02 18:48 | XMS_ITS | Continuity of Care Document ---
Author Name Unknown Organization [facility] Address [address] [place] [address]- Care Team Providers Care Functional Tester Name Role Phone Vanessa Sharif DO Primary Care Physician Encounter [facility] Date(s): 02/27/20 - 03/28/20 [facility] [address] [place] [address]- [facility] Attending Physician: Silvino Vance Admitting Physician: Silvino Vance Referring Physician: AdmSilvino hicks Allergies, Adverse Reactions, Alerts Substance Reaction Severity [...] 30 days, Not to exceed 2000 mg/day. Vietnamese label.,# 90 tablet, 2 Refills, Acute 06/09/20 10:37:00 EDT, 03/11/20 10:37:00 EDT, ER [facility]., 168, c... Start Date: 03/11/20 Stop Date: 06/09/20 Status: Ordered albuterol 0.083% inhalation solution 3 mL = 2.5 mg, Inhalation, Every 6 hours, PRN for wheezing, # 60 each, 0 Refills, Maintenance, 12/20/19 10:09:00 EDT, Solution, [facility]., 168, cm, 11/19/19 13:14:00 [...] mg, By Mouth, Daily, please label in citizen of [place]. discontinue the atorvastatin, # 30 tablet, 5 Refills, Maintenance, 12/18/19 16:05:00 EDT, Tablet, [facility], 168, cm, 11/19/19 13:14:00 EDT, Height, [...] MANUEL, # 50 Gm, 0 Refills, Acute, [facility], 25, APLICAR A LA PIEL AL AREA AFECTADA DOS VECES AL MANUEL, 168, cm, 09/24/19 13:53:00 EST, Height, 89.2, kg, 06/19/19 1:03:00 EDT, Start Date: 10/23/19 Status: Ordered Claritin 10 mg oral tablet 10 mg, By Mouth, Daily, # 90 tablet, Refills 0, Tot. Refills 0, Maintenance, 12/18/19 14:20:00 EDT,Route to Pharmacy Electronically, [facility], 168, cm, 11/19/19 13:14:00 EDT, Height, [...] NECESARIO, # 30 Gm, 0 Refills, Acute, [facility], 14, APLICAR A LA PIEL AL AREA AFECTADA (DE LA ERUPCION EN EL PIE DERECHO) D... Start Date: 10/23/19 Status: Ordered diclofenac 1% topical gel 1 application, Topically, 4 times a day, PRN for pain, not to exceed 8 grams/day/single joint of upper extremities, # 100 Gm, 0 Refills, Maintenance, 01/19/20 19:54:00 EDT, Gel, [facility]., 168, cm, 11/19/19 13:14:00 EDT, Height, 89.2,... Start Date: 01/19/20 Status: Ordered Flovent HFA 220 mcg/inh inhalation aerosol 1 puffs, Inhalation, 2 times a day, # 12 Gm, 3 Refills, Maintenance, 12/20/19 13:42:00 EDT, Aerosol, [facility]., 168, cm, 11/19/19 13:14:00 EDT, Height, 89.2, kg, 06/19/19 1:03:00 EDT, Dry Weight Start Date: 12/20/19 Status: Ordered Freestyle Lancets See Instructions, # 100 each, Refills 11, Tot. Refills 11, Maintenance, use as directed for Type 2 Diabetes Mellitus Test 3 times/day Instructions in Vietnamese, 08/09/19 10:57:52 EST, Compound Start Date: 08/09/19 Stop Date: 08/03/20 Status: Ordered Freestyle Lite Test Strips See Instructions, # 100 each, Refills 11, Tot. Refills 11, Maintenance, use as directed for Type 2 Diabetes Mellitus Test 3 times/day Instructions in Vietnamese, 08/09/19 10:57:52 EST, Compound Start Date: 08/09/19 Stop Date: 08/03/20 Status: Ordered gabapentin 600 mg oral tablet 1 tablet = 600 mg, By Mouth, 3 times a day, Vietnamese label, # 270 tablet, 5 Refills, Maintenance, 11/19/19 13:56:00 EDT, Tablet, [facility], 168, cm, 11/19/19 13:14:00 EDT, Height, 89.2, kg, 06/19/19 1:03:00 EDT, Dry Weight Start Date: 11/19/19 Stop Date: 05/12/21 Status: Ordered levothyroxine 125 mcg (0.125 mg) oral tablet 1 tablet = 125 mcg, By Mouth, Daily, Vietnamese label, # 30 tablet, 5 Refills, Maintenance, 09/10/19 15:16:00 EST, Tablet, [facility]., 168, cm, 09/10/19 13:44:00 EST, Height, 89.2, kg, 06/19/19 1:03:00 EDT, Dry Weight Start Date: 09/10/19 Status: Ordered Linzess 72 mcg oral capsule 0 Refills, Maintenance, 10/24/19 13:52:00 EST Start Date: 10/24/19 Status: Ordered lisinopril 30 mg oral tablet 1 tablet = 30 mg, By Mouth, Daily, dose increase, # 30 tablet, 11 Refills, Maintenance, 08/27/19 13:59:38 EST, [facility], 168, cm, 08/20/19 13:32:17 EST, Height, 89.2, kg, 06/19/19 1:03:24 EDT, Dry Weight Start Date: 08/27/19 Status: Ordered metFORMIN 500 mg oral tablet, extended release See Instructions, Take 1000 mg (2 tabs) in the morning and 500 mg (1 tab) in the evening; with food; Vietnamese label, # 90 tablet, 5 Refills, Maintenance, 12/25/19 14:51:00 EDT, [facility], 168, cm, 11/19/19 13:14:00 EDT, Height, [...] 12/20/19 10:09:00 EDT, Route to Pharmacy Electronically, [facility], 168, cm, 11/19/19 13:14:00EDT, Height, 89.2, [...] capsule = 40 mg, By Mouth, Daily, Vietnamese label please, # 60 capsule, 2 Refills, Maintenance, 12/06/19 13:25:00 EDT, EC Capsule, [facility], please discontinue amoxicillin/metronidazole/lansoprazole combination, 168, cm, 11/19/19 13:... Start Date: 12/06/19 Stop Date: 03/05/20 Status: Ordered omeprazole 40 mg oral enteric coated capsule 2 capsule = 80 mg, By Mouth, Daily, via [facility], # 60 capsule, 0 Refills, Maintenance, 01/07/20 13:53:00 EDT, CR Capsule Start Date: 01/07/20 Status: Ordered ProAir HFA 90 mcg/inh inhalation aerosol with adapter 1, puffs, Inhalation, Every 4 hours, PRN, # 8.5 Gm, Refills 5, Tot. Refills 5, Maintenance, 12/20/19 10:09:00 EDT, Aerosol, Route to Pharmacy Electronically, [id number], [facility], 168, , 11/19/19 13:14:00... Start Date: [...] 2 hours up to amaximum of 2; Vietnamese label please, # 9 tablet, 0 Refills, Maintenance, 09/10/19 15:12:00 EST, Tablet, [facility], 168, , 09/10/19 13... Start Date: 09/10/19 Status: Ordered Vitamin D3 1000 intl units oral capsule 1 capsule = 1,000 International_Units, By Mouth, Daily, Vietnamese label please; with food, # 30 capsule, 11 Refills, Maintenance, 12/08/19 10:59:00 EDT, Capsule, [facility], 168, , 11/19/19 13:14:00 EDT, Height, 89.2, kg, 06/19/19 1:03... Start Date: 12/08/19 Stop Date: 12/02/20 Status: Ordered Problem List Condition Effective Dates Status Health Status Inform ant Chronic pelvic pain(Confirmed) Active Chronic renal insufficiency(Confirmed) Active Diabetes(Confirmed) Active Fibromyalgia(Confirmed) Active Hypertension(Confirmed) Active Hypertriglyceridemia; mild(Confirmed) Active Hypothyroid(Confirmed) Active Major depression, chronic(Confirmed) Active KIRAN (obstructive sleep apnea ) severe(Confirmed) 2017 Active Palpitations(Confirmed) Active *BHN/BHKRISTINE/Vasquez Guillen-[phone]/Health usp, active care coordination(Confirmed) Active Seizure-like activity(Confirmed) Active Steatosis of liver(Confirmed) Active Vasovagal syncope(Confirmed) Active Social History Social History Type Response Smoking Status Never smoker entered on: 01/14/16 Sex Female
--- OUTSIDE RECORDS SUMMARY | 2023-07-02 18:48 | XMS_ITS | Continuity of Care Document ---
Author Name Unknown Organization [facility] Address [address] [place] [id number]- Care Team Providers Care Software Testing Specialist Name Role Phone Vanessa Sharif DO Primary Care Physician [place] [facility]s): 12/20/19 - 12/27/19 [facility] [address] [place] [id number] Attending Physician: Liban SORIA, Evan Nielsen Admitting [...] Stop 12/24/20 11:35:00 EDT, 12/25/19 11:34:00 EDT, [facility] Start Date: 12/25/19 Stop Date: 12/24/20 Status: Ordered albuterol 0.083% inhalation solution 3 mL = 2.5 mg, Inhalation, Every 6 hours, PRN for wheezing, # 60 each, 0 Refills, Maintenance, 12/20/19 10:09:00 EDT, Solution, [facility], cm, 11/19/19 13:14:00 EDT, Height, [...] mg, By Mouth, Daily, please label in tunisian. discontinue the atorvastatin, # 30 tablet, 5 Refills, Maintenance, 12/18/19 16:05:00 EDT, Tablet, [facility], 168, cm, 11/19/19 13:14:00 EDT, [...] MANUEL, # 50 Gm, 0 Refills, Acute, [facility], 25, APLICAR A LA PIEL AL AREA AFECTADA DOS VECES AL MANUEL, 168, cm, 09/24/19 13:53:00 EST, Height, 89.2, kg, 06/19/19 1:03:00 EDT, Start Date: 10/23/19 Status: Ordered Claritin 10 mg oral tablet 10 mg, By Mouth, Daily, # 90 tablet, Refills 0, Tot. Refills 0, Maintenance, 12/18/19 14:20:00 EDT,Route to Pharmacy Electronically, [facility] 168, cm, 11/19/19 13:14:00 EDT, Height, [...] NECESARIO, # 30 Gm, 0 Refills, Acute, [facility], 14, APLICAR A LA PIEL AL AREA AFECTADA (DE LA ERUPCION EN EL PIE DERECHO) D... Start Date: 10/23/19 Status: Ordered diclofenac 1% topical gel 1 application, Topically, 4 times a day, PRN for pain, not to exceed 8 grams/day/single joint of upper extremities, # 100 Gm, 0 Refills, Maintenance, 12/18/19 18:21:00 EDT, Gel, [facility] 168, cm, 11/19/19 13:14:00 EDT, Height, 89.2,... Start Date: 12/18/19 Status: Ordered Flovent HFA 220 mcg/inh inhalation aerosol 1 puffs, Inhalation, 2 times a day, # 12 Gm, 3 Refills, Maintenance, 12/20/19 13:42:00 EDT, Aerosol, [facility] 168, cm, 11/19/19 13:14:00 EDT, Height, 89.2, kg, 06/19/19 1:03:00 EDT, Dry Weight Start Date: 12/20/19 Status: Ordered Freestyle Lancets See Instructions, # 100 each, Refills 11, Tot. Refills 11, Maintenance, use as directed for Type 2 Diabetes Mellitus Test 3 times/day Instructions in Bhutanese, 08/09/19 10:57:52 EST, Compound Start Date: 08/09/19 Stop Date: 08/03/20 Status: Ordered Freestyle Lite Test Strips See Instructions, # 100 each, Refills 11, Tot. Refills 11, Maintenance, use as directed for Type 2 Diabetes Mellitus Test 3 times/day Instructions in Bhutanese, 08/09/19 10:57:52 EST, Compound Start Date: 08/09/19 Stop Date: 08/03/20 Status: Ordered gabapentin 600 mg oral tablet 1 tablet = 600 mg, By Mouth, 3 times a day, Bhutanese label, # 270 tablet, 5 Refills, Maintenance, 11/19/19 13:56:00 EDT, Tablet, [facility] 168, cm, 11/19/19 13:14:00 EDT, Height, 89.2, kg, 06/19/19 1:03:00 EDT, Dry Weight Start Date: 11/19/19 Stop Date: 05/12/21 Status: Ordered levothyroxine 125 mcg (0.125 mg) oral tablet 1 tablet = 125 mcg, By Mouth, Daily, Bhutanese label, # 30 tablet, 5 Refills, Maintenance, 09/10/19 15:16:00 EST, Tablet, [facility] 168, cm, 09/10/19 13:44:00 EST, Height, 89.2, kg, 06/19/19 1:03:00 EDT, Dry Weight Start Date: 09/10/19 Status: Ordered Linzess 72 mcg oral capsule 0 Refills, Maintenance, 10/24/19 13:52:00 EST Start Date: 10/24/19 Status: Ordered lisinopril 30 mg oral tablet 1 tablet = 30 mg, By Mouth, Daily, dose increase, # 30 tablet, 11 Refills, Maintenance, 08/27/19 13:59:38 EST, [facility], cm, 08/20/19 13:32:17 EST, Height, 89.2, kg, 06/19/19 1:03:24 EDT, Dry Weight Start Date: 08/27/19 Status: Ordered metFORMIN 500 mg oral tablet, extended release See Instructions, Take 1000 mg (2 tabs) in the morning and 500 mg (1 tab) in the evening; with food; Bhutanese label, # 90 tablet, 5 Refills, Maintenance, 12/25/19 14:51:00 EDT, [facility], 168, cm, 11/19/19 13:14:00 EDT, [...] 12/20/19 10:09:00 EDT, Route to Pharmacy Electronically, [facility], 168, cm, 11/19/19 13:14:00EDT, Height, 89.2, [...] capsule = 40 mg, By Mouth, Daily, Bhutanese label please, # 60 capsule, 2 Refills, Maintenance, 12/06/19 13:25:00 EDT, EC Capsule, [facility], please discontinue amoxicillin/metronidazole/lansoprazole combination, 168, cm, 11/19/19 13:... Start Date: 12/06/19 Stop Date: 03/05/20 Status: Ordered ProAir HFA 90 mcg/inh inhalation aerosol with adapter 1, puffs, Inhalation, Every 4 hours, PRN, # 8.5 Gm, Refills 5, Tot. Refills 5, Maintenance, 12/20/19 10:09:00 EDT, Aerosol, Route to Pharmacy Electronically, [id number], [facility] 168, cm, 11/19/19 13:14:00... Start [...] 2 hours up to amaximum of 2; Bhutanese label please, # 9 tablet, 0 Refills, Maintenance, 09/10/19 15:12:00 EST, Tablet, [facility] 168, cm, 09/10/19 13... Start Date: 09/10/19 Status: Ordered Vitamin D3 1000 intl units oral capsule 1 capsule = 1,000 International_Units, By Mouth, Daily, Bhutanese label please; with food, # 30 capsule, 11 Refills, Maintenance, 12/08/19 10:59:00 EDT, Capsule, [facility] 168, cm, 11/19/19 13:14:00 EDT, Height, 89.2, kg, 06/19/19 1:03... Start Date: 12/08/19 Stop Date: 12/02/20 Status: Ordered Problem List Condition Effective Dates Status Health Status Inform ant Chronic pelvic pain(Confirmed) Active Chronic renal insufficiency(Confirmed) Active Diabetes(Confirmed) Active Fibromyalgia(Confirmed) Active Hypertension(Confirmed) Active Hypertriglyceridemia; mild(Confirmed) Active Hypothyroid(Confirmed) Active Major depression, chronic(Confirmed) Active KIRAN (obstructive sleep apnea)(Confirmed) Active Palpitations(Confirmed) Active *BHN/NAMITA/Vasquez Guillen-[phone]/Health long-term, active care coordination(Confirmed) Active Seizure-like activity(Confirmed) Active Steatosis of liver(Confirmed) Active Vasovagal syncope(Confirmed) Active Social History Social History Type Response Smoking Status Never smoker entered on: 01/14/16 Sex Female
--- OUTSIDE RECORDS SUMMARY | 2023-07-02 18:48 | XMS_ITS | Continuity of Care Document ---
Author Name Unknown Organization [facility] Address [address] [place] [address]- Care Team Providers Care Bull Bucker Name Role Phone Vanessa Sharif DO Primary Care Physician [place] [facility] [place] 11/26/20 - 01/23/21 [facility] [address], [place] [address] Attending Physician: Luz Valentine DO Admitting Physician: [...] 0 Refills, Maintenance, 12/20/19 10:09:00 EDT, Solution, [facility], 168, cm, 11/19/19 13:14:00 EDT, Height, [...] mg, By Mouth, Daily, please label in nauruan., # 30 tablet, 11 Refills, Maintenance, 06/23/20 20:27:00 EDT, Tablet, [facility], 168, cm, 11/19/19 13:14:00 EDT, [...] PRN for dry skin, Print instructions in nauruan to affected area, # 454 Gm, 0 Refills, Maintenance, 11/25/20 14:30:00 EDT, Cream, [facility], Partial fill upon patient request if the prescripti... Start Date: 11/25/20 Status: Ordered Claritin 10 mg oral tablet 10 mg, By Mouth, Daily, # 90 tablet, Refills 0, Tot. Refills 0, Maintenance, 06/23/20 9:15:00 EDT, Route to Pharmacy Electronically, [facility], 168, cm, 11/19/19 13:14:00 EDT, Height, 89.2, kg, 06/19/19 1:03:00 EDT, Dry Weight Start Date: 06/23/20 Stop Date: 1/11/21 Status: Ordered clonazePAM 0.5 mg oral tablet [...] 2 Refills, Maintenance, 11/13/20 9:14:00 EST, Gel, [facility] Guinean label, 168, cm, 11/13/20 8:37:00 EST,... Start Date: 11/13/20 Status: Ordered Freestyle Lancets See Instructions, # 100 each, Refills 11, Tot. Refills 11, Maintenance, use as directed for Type 2 Diabetes Mellitus Test 3 times/day Instructions in Guinean, 11/10/20 9:37:00 EST, Compound, 168, cm,11/19/19 13:14:00 EDT, Height, 89.2, kg, 06/19/19... Start Date: 11/10/20 Stop Date: 11/05/21 Status: Ordered Freestyle Lite Test Strips See Instructions, # 100 each, Refills 6, Tot. Refills 6, Maintenance, use as directed for Type 2 Diabetes Mellitus Test 3 times/day Instructions in Guinean, 11/10/20 9:41:00 EST, Duplicate rx-Original rx sent 06/23/20. Remaining refills sent., [place]... Start Date: 11/10/20 Stop Date: 06/08/21 Status: Ordered gabapentin 600 mg oral tablet 1 tablet = 600 mg, By Mouth, 3 times a day, Guinean label, # 90 tablet, 5 Refills, Maintenance, 05/12/21 13:56:00 EDT, Tablet, [facility], 168, cm, 11/19/19 13:14:00 EDT, Height, 89.2, kg, 06/19/19 1:03:00 EDT, Dry Weight Start Date: 05/12/21 Stop Date: 11/08/21 Status: Ordered Lac-Hydrin 12% lotion 1 application, Topically, 2 times a day, PRN Dry Skin, Apply and rub in well, # 400 Gm, 2 Refills, Maintenance, 11/13/20 9:08:00 EST, Lotion, [facility], Guinean label, 1 application Topically 2 times a [...] PRN Pain , Moderate, Print instructions in nauruan wash hands thoroughly after application, # 50 Gm, 1 Refills, Maintenance, 11/25/20 14:45:00 EDT, Ointment, [facility], Partial fill upon patie... Start Date: 11/25/20 Status: Ordered lisinopril 10 mg oral tablet 10 mg, 1, tablet, By Mouth, Daily, # 30 tablet, Refills 0, Tot. Refills 0, Maintenance, 12/04/20 14:27:00 EDT, Route to Pharmacy Electronically, [facility], Partial fill upon patient request if the prescription is for a schedule II opioi... Start Date: 12/04/20 Status: Ordered metFORMIN 500 mg oral tablet, extended release See Instructions, Take 1000 mg (2 tabs) in the morning and 500 mg (1 tab) in the evening; with food; Guinean label, # 90 tablet, 5 Refills, Maintenance, 11/06/20 13:47:00 EST, [facility], 168, cm, 11/19/19 13:14:00 EDT, Height, 89.2, k... Start Date: 11/06/20 Status: Ordered montelukast 10 mg oral tablet 10 mg, 1, tablet, By Mouth, Daily, # 90 tablet, Refills 5, Tot. Refills 5, Maintenance, 12/20/19 10:09:00 EDT, Route to Pharmacy Electronically, [facility] 168, cm, 11/19/19 13:14:00EDT, Height, 89.2, [...] 15:09:00 EST, Aerosol, Route to Pharmacy Electronically, [id number], [facility]., 168, cm, 11/19/19 13:14:00... Start Date: 07/31/20 [...] Refills, Maintenance, 11/13/20 9:08:00 EST, ER Tablet, [facility], Partial fill upon patient request if [...] Refills, Maintenance, 11/06/20 14:03:00 EST, ER Tablet, [facility]., Guinean label, 168, cm, 11/19/19 13:14:00 EDT, Height, 89.2, k... Start Date: 11/06/20 Status: Ordered Vitamin D3 1000 intl units oral capsule 1 capsule = 1,000 International_Units, By Mouth, Daily, Guinean label please; with food, # 30 capsule, 5 Refills, Maintenance, 11/06/20 11:55:00 EST, Capsule, [facility]., 168, cm, 11/19/19 13:14:00 EDT, Height, [...] ) severe(Confirmed) 2017 Active Palpitations(Confirmed) Active *BHN/BHCP/Lisa Denney-[phone]/Health senior care, active care coordination(Confirmed) Active Seizure-like activity(Confirmed) Active Steatosis of liver(Confirmed) Active Vasovagal syncope(Confirmed) Active Social History Social History Type Response Smoking Status Never smoker entered on: 01/14/16 Sex Female
--- OUTSIDE RECORDS SUMMARY | 2023-07-02 18:48 | XMS_ITS | Continuity of Care Document ---
Author Name Unknown Organization [facility] Address [address] [place] [id number]- Care Team Providers Care Percussion Welding Machine Operator Name Role Phone Lotus Lott Primary Care Physician [place] [facility] [place]/22 [facility] [address] [place] [id number]- [place] Allergies, Adverse Reactions, Alerts Substance Reaction Severity [...] Refills, Maintenance, 12/20/19 10:09:00 EDT, Solution, [facility] 168, cm, 11/19/19 13:14:00 EDT, [...] mg, By Mouth, Daily, please label in [place] gu[place]., # 30 tablet, 11 Refills, Maintenance, 06/23/20 20:27:00 EDT, Tablet, [facility], 168, cm, 11/19/19 13:14:00 EDT, [...] PRN for dry skin, Print instructions in [place] gu[place] to affected area, # 454 Gm, 0 Refills, Maintenance, 11/25/20 14:30:00 EDT, Cream, [facility], Partial fill upon patient request if the prescripti... Start Date: 11/25/20 Status: Ordered Claritin 10 mg oral tablet 10 mg, By Mouth, Daily, # 90 tablet, Refills 0, Tot. Refills 0, Maintenance, 06/23/20 9:15:00 EDT, Route to Pharmacy Electronically, [facility], 168, cm, 11/19/19 13:14:00 EDT, [...] 2 Refills, Maintenance, 11/13/20 9:14:00 EST, Gel, [facility]., Kosovan label, 168, cm, 11/13/20 8:37:00 EST,... Start Date: 11/13/20 Status: Ordered Freestyle Lancets See Instructions, # 100 each, Refills 11, Tot. Refills 11, Maintenance, use as directed for Type 2 Diabetes Mellitus Test 3 times/day Instructions in Kosovan, 11/10/20 9:37:00 EST, Compound, 168, cm,11/19/19 13:14:00 EDT, Height, 89.2, kg, 06/19/19... Start Date: 11/10/20 Stop Date: 11/05/21 Status: Ordered Freestyle Lite Test Strips See Instructions, # 100 each, Refills 6, Tot. Refills 6, Maintenance, use as directed for Type 2 Diabetes Mellitus Test 3 times/day Instructions in Kosovan, 11/10/20 9:41:00 EST, Duplicate rx-Original rx sent 06/23/20. Remaining refills sent., [place]... Start Date: 11/10/20 Stop Date: 06/08/21 Status: Ordered gabapentin 600 mg oral tablet 1 tablet = 600 mg, By Mouth, 3 times a day, Kosovan label, # 90 tablet, 5 Refills, Maintenance, 05/12/21 13:56:00 EDT, Tablet, [facility] 168, cm, 11/19/19 13:14:00 EDT, Height, 89.2, kg, 06/19/19 1:03:00 EDT, Dry Weight Start Date: 05/12/21 Stop Date: 11/08/21 Status: Ordered Lac-Hydrin 12% lotion 1 application, Topically, 2 times a day, PRN Dry Skin, Apply and rub in well, # 400 Gm, 2 Refills, Maintenance, 11/13/20 9:08:00 EST, Lotion, [facility], Kosovan label, 1 application Topically 2 times a [...] PRN Pain , Moderate, Print instructions in [place] guine[place] wash hands thoroughly after application, # 50 Gm, 1 Refills, Maintenance, 11/25/20 14:45:00 EDT, Ointment, [facility], Partial fill upon patie... Start Date: 11/25/20 Status: Ordered lisinopril 10 mg oral tablet 10 mg, 1, tablet, By Mouth, Daily, # 30 tablet, Refills 0, Tot. Refills 0, Maintenance, 12/04/20 14:27:00 EDT, Route to Pharmacy Electronically, [facility], Partial fill upon patient request if the prescription is for a schedule II opioi... Start Date: 12/04/20 Status: Ordered metFORMIN 500 mg oral tablet, extended release See Instructions, Take 1000 mg (2 tabs) in the morning and 500 mg (1 tab) in the evening; with food; Kosovan label, # 90 tablet, 5 Refills, Maintenance, 11/06/20 13:47:00 EST, [facility]., 168, cm, 11/19/19 13:14:00 EDT, Height, 89.2, k... Start Date: 11/06/20 Status: Ordered montelukast 10 mg oral tablet 10 mg, 1, tablet, By Mouth, Daily, # 90 tablet, Refills 5, Tot. Refills 5, Maintenance, 12/20/19 10:09:00 EDT, Route to Pharmacy Electronically, [facility], 168, cm, 11/19/19 13:14:00EDT, Height, 89.2, [...] 15:09:00 EST, Aerosol, Route to Pharmacy Electronically, [id number], [facility], 168, cm, 11/19/19 13:14:00... Start Date: 07/31/20 [...] Refills, Maintenance, 11/13/20 9:08:00 EST, ER Tablet, [facility], Partial fill upon patient request if [...] 11/06/20 14:03:00 EST, ER Tablet, [facility]., Kosovan label, 168, cm, 11/19/19 13:14:00 EDT, Height, 89.2, k... Start Date: 11/06/20 Status: Ordered Vitamin D3 1000 intl units oral capsule 1 capsule = 1,000 International_Units, By Mouth, Daily, Kosovan label please; with food, # 30 capsule, 5 Refills, Maintenance, 11/06/20 11:55:00 EST, Capsule, [facility]., 168, cm, 11/19/19 13:14:00 EDT, [...] ) severe(Confirmed) 2017 Active Palpitations(Confirmed) Active *BHN/BHCP/Lisa Denney-[phone]/Health senior care, active care coordination(Confirmed) Active Seizure-like activity(Confirmed) Active Steatosis of liver(Confirmed) Active Vasovagal syncope(Confirmed) Active Social History Social History Type Response Smoking Status Never smoker entered on: 01/14/16 Sex Female
--- OUTSIDE RECORDS SUMMARY | 2023-07-02 18:48 | XMS_ITS | Continuity of Care Document ---
Author Name Unknown Organization [facility] Address [address] [place] [address]- Care Team Providers Care Retail Operations Manager Name Role Phone Vanessa Sharif DO Primary Care Physician [place] [facility] [place] 07/16/19 - 09/26/19 [facility] [address] [place] [address]- [facility] Attending Physician: Luz Valentine DO Admitting Physician: [...] CADA 6 HORAS CUANDO SEA NECESARIO PARA DOLOR. (LIMITE A 4000MG DE TYLENOL/APAP/ACETAMINOPHEN), # 100 tablet, 1 Refills, Soft Stop, 08/20/19 13:50:26 EST, 168, cm, 08/20/19 13:32:17 EST, Height, 89.2, kg,... Start Date: 08/20/19 Status: Ordered albuterol 0.083% inhalation solution 3 [...] mg, By Mouth, Daily, please label in sami. discontinue the atorvastatin, # 30 tablet, 6 [...] Status: Ordered betamethasone topical dipropionate 0.05% cream 1 application, Topically, 2 times a day, please label in Mauritian, # 50 Gm, 0 Refills, Maintenance, 09/24/19 13:17:00 EST, Cream, [facility], 1 application Topically 2 times a day,Instr:please label in Mauritian, 168, cm, 09/10/19 13:44:0... Start Date: 09/24/19 Status: Ordered Claritin 10 mg oral tablet 10 mg, By Mouth, Daily, # 90 tablet, Refills 4, Tot. Refills 4, Maintenance, 12/13/18 11:00:05 EDT,Route to Pharmacy Electronically, [id number], [facility]. Start Date: 12/13/18 Stop Date: 03/07/20 Status: Ordered clonazePAM 0.5 mg oral tablet 1 tablet = 0.5 mg, By Mouth, Daily at bedtime, Dr. Dale, 0 Refills, Maintenance, 01/28/16 14:10:50 Start Date: 01/28/16 Status: Ordered clotrimazole 1% topical cream 1 application, Topically, 2 times a day, PRN Rash, Apply to top of right foot. Mauritian label please., # 12 Gm, 0 Refills, Maintenance, 09/10/19 15:09:00 EST, Cream, [facility] 1 application Topically 2 times a day,PRN:Rash,Instr:Apply... Start Date: 09/10/19 Status: Ordered diclofenac 1% topical gel 1 [...] Diabetes Mellitus Test 3 times/day Instructions in Mauritian, 08/09/19 10:57:52 EST, Compound Start Date: 08/09/19 Stop Date: 08/03/20 Status: Ordered Freestyle Lite Test Strips See Instructions, # 100 each, Refills 11, Tot. Refills 11, Maintenance, use as directed for Type 2 Diabetes Mellitus Test 3 times/day Instructions in Mauritian, 08/09/19 10:57:52 EST, Compound Start Date: 08/09/19 Stop Date: 08/03/20 Status: Ordered gabapentin 600 mg oral tablet 1 tablet = 600 mg, By Mouth, 3 times a day, Mauritian label, # 270 tablet, 5 Refills, Maintenance, 12/13/18 10:59:58 EDT, Tablet Start Date: 12/13/18 Stop Date: 06/05/20 Status: Ordered ibuprofen 400 mg oral tablet 400 mg, 1, tablet, By Mouth, Every 8 hours, # 30 tablet, Refills 1, Tot. Refills 1, Maintenance, 08/20/19 13:50:16 EST, Route to Pharmacy Electronically, [id number], [facility], 168, cm, 08/20/19 13:32:17 EST,... Start Date: 08/20/19 Status: Ordered levothyroxine 125 mcg (0.125 mg) oral tablet 1 tablet = 125 mcg, By Mouth, Daily, Mauritian label, # 30 tablet, 5 Refills, Maintenance, 09/10/19 15:16:00 EST, Tablet, [facility], 168, cm, 09/10/19 13:44:00 EST, Height, 89.2, kg, 06/19/19 1:03:00 EDT, Dry Weight Start Date: 09/10/19 Status: Ordered lisinopril 30 mg oral tablet 1 tablet = 30 mg, By Mouth, Daily, dose increase, # 30 tablet, 11 Refills, Maintenance, 08/27/19 13:59:38 EST, [facility], 168, cm, 08/20/19 13:32:17 EST, Height, 89.2, kg, 06/19/19 1:03:24 EDT, Dry Weight Start Date: 08/27/19 Status: Ordered metFORMIN 500 mg oral tablet, extended release See Instructions, ULYSSES 2 TABLETAS POR LA BOCA CADA MANUEL, # 60 tablet, 5 Refills, Maintenance, [facility], 168, cm, 09/10/19 13:44:00 EST, [...] 07/24/19 9:39:34 EST, Route to Pharmacy Electronically, [id number], [facility] Start Date: 07/24/19 Stop Date: 01/20/20 [...] 10:59:41 EDT, Aerosol, Route to Pharmacy Electronically, [id number], [facility] Start Date: 12/13/18 Status: Ordered propranolol 80 mg oral capsule, extended release 80 mg, 1, capsule, By Mouth, Daily, dose increase, # 30 capsule, Refills 11, Tot. Refills 11, Maintenance, 09/24/19 13:15:00 EST, Route to Pharmacy Electronically, [facility], 168, cm, 09/10/19 13:44:00 EST, [...] 2 hours up to amaximum of 2; Mauritian label please, # 9 tablet, 0 Refills, Maintenance, 09/10/19 15:12:00 EST, Tablet, [facility], 168, cm, 09/10/19 13... Start [...] (obstructive sleep apnea)(Confirmed) Active Palpitations(Confirmed) Active *BHN/BHCP/Vasquez Guillen-[phone]/Health half-way, active care coordination(Confirmed) Active Seizure-like activity(Confirmed) Active Steatosis of liver(Confirmed) Active Vasovagal syncope(Confirmed) Active Social History Social History Type Response Smoking Status Never smoker entered on: 01/14/16 Sex Female
--- OUTSIDE RECORDS SUMMARY | 2023-07-02 18:48 | XMS_ITS | Continuity of Care Document ---
Author Name Unknown Organization [facility] Address [address] [place] [phone]- Care Team Providers Care Space Systems Operations Superintendent Name Role Phone Vanessa Sharif DO Primary Care Physician [place] [facility] [place] 01/[place]21 [facility] [address] [place] [id number] Attending Physician: AdmSilvino hicks Admitting Physician: AdmtrSilvino [...] 12/20/19 10:09:00 EDT, Solution, [facility] 168, cm, 11/19/19 13:14:00 EDT, [...] mg, By Mouth, Daily, please label in somali., # 30 tablet, 11 Refills, Maintenance, 06/23/20 20:27:00 EDT, Tablet, [facility], 168, cm, 11/19/19 13:14:00 EDT, [...] PRN for dry skin, Print instructions in somali to affected area, # 454 Gm, 0 Refills, Maintenance, 11/25/20 14:30:00 EDT, Cream, [facility], Partial fill upon patient request if the prescripti... Start Date: 11/25/20 Status: Ordered Claritin 10 mg oral tablet 10 mg, By Mouth, Daily, # 90 tablet, Refills 0, Tot. Refills 0, Maintenance, 06/23/20 9:15:00 EDT, Route to Pharmacy Electronically, [facility], 168, cm, 11/19/19 13:14:00 EDT, [...] 2 Refills, Maintenance, 11/13/20 9:14:00 EST, Gel, [facility] Swazi label, 168, cm, 11/13/20 8:37:00 EST,... Start Date: 11/13/20 Status: Ordered Freestyle Lancets See Instructions, # 100 each, Refills 11, Tot. Refills 11, Maintenance, use as directed for Type 2 Diabetes Mellitus Test 3 times/day Instructions in Swazi, 11/10/20 9:37:00 EST, Compound, 168, cm,11/19/19 13:14:00 EDT, Height, 89.2, kg, 06/19/19... Start Date: 11/10/20 Stop Date: 11/05/21 Status: Ordered Freestyle Lite Test Strips See Instructions, # 100 each, Refills 6, Tot. Refills 6, Maintenance, use as directed for Type 2 Diabetes Mellitus Test 3 times/day Instructions in Swazi, 11/10/20 9:41:00 EST, Duplicate rx-Original rx sent 06/23/20. Remaining refills sent., [place]... Start Date: 11/10/20 Stop Date: 06/08/21 Status: Ordered gabapentin 600 mg oral tablet 1 tablet = 600 mg, By Mouth, 3 times a day, Swazi label, # 90 tablet, 5 Refills, Maintenance, 05/12/21 13:56:00 EDT, Tablet, [facility], 168, cm, 11/19/19 13:14:00 EDT, Height, 89.2, kg, 06/19/19 1:03:00 EDT, Dry Weight Start Date: 05/12/21 Stop Date: 11/08/21 Status: Ordered Lac-Hydrin 12% lotion 1 application, Topically, 2 times a day, PRN Dry Skin, Apply and rub in well, # 400 Gm, 2 Refills, Maintenance, 11/13/20 9:08:00 EST, Lotion, [facility], Swazi label, 1 application Topically 2 times a [...] PRN Pain , Moderate, Print instructions in somali wash hands thoroughly after application, # 50 Gm, 1 Refills, Maintenance, 11/25/20 14:45:00 EDT, Ointment, [facility], Partial fill upon patie... Start Date: 11/25/20 Status: Ordered lisinopril 10 mg oral tablet 10 mg, 1, tablet, By Mouth, Daily, # 30 tablet, Refills 0, Tot. Refills 0, Maintenance, 12/04/20 14:27:00 EDT, Route to Pharmacy Electronically, [facility], Partial fill upon patient request if the prescription is for a schedule II opioi... Start Date: 12/04/20 Status: Ordered metFORMIN 500 mg oral tablet, extended release See Instructions, Take 1000 mg (2 tabs) in the morning and 500 mg (1 tab) in the evening; with food; Swazi label, # 90 tablet, 5 Refills, Maintenance, 11/06/20 13:47:00 EST, [facility], 168, cm, 11/19/19 13:14:00 EDT, Height, 89.2, k... Start Date: 11/06/20 Status: Ordered montelukast 10 mg oral tablet 10 mg, 1, tablet, By Mouth, Daily, # 90 tablet, Refills 5, Tot. Refills 5, Maintenance, 12/20/19 10:09:00 EDT, Route to Pharmacy Electronically, [facility] 168, cm, 11/19/19 13:14:00EDT, Height, 89.2, kg, [...] 15:09:00 EST, Aerosol, Route to Pharmacy Electronically, [id number], [facility], 168, cm, 11/19/19 13:14:00... Start Date: [...] Refills, Maintenance, 11/13/20 9:08:00 EST, ER Tablet, [facility], Partial fill upon patient request [...] Refills, Maintenance, 11/06/20 14:03:00 EST, ER Tablet, [facility]., Swazi label, 168, cm, 11/19/19 13:14:00 EDT, Height, 89.2, k... Start Date: 11/06/20 Status: Ordered Vitamin D3 1000 intl units oral capsule 1 capsule = 1,000 International_Units, By Mouth, Daily, Swazi label please; with food, # 30 capsule, 5 Refills, Maintenance, 11/06/20 11:55:00 EST, Capsule, [facility]., 168, cm, 11/19/19 13:14:00 EDT, Height, [...] ) severe(Confirmed) 2017 Active Palpitations(Confirmed) Active *BHN/BHCP/KRISTINE-Barbie Denney-[phone]/Health shelter, active care coordination(Confirmed) Active Seizure-like activity(Confirmed) Active Steatosis of liver(Confirmed) Active Vasovagal syncope(Confirmed) Active Social History Social History Type Response Smoking Status Never smoker entered on: 01/14/16 Sex Female
--- OUTSIDE RECORDS SUMMARY | 2023-07-02 18:48 | XMS_ITS | Continuity of Care Document ---
Author Name Unknown Organization [facility] Address [address] [place] [id number]- Care Team Providers Care Blueprinting And Photocopy Supervisor Name Role Phone Sheldon SORIA, Layla Elliott Primary Care Physician [place] [facility] [place] 02/[place]/23 [facility] [address] [place] [address]- Allergies, Adverse Reactions, Alerts Substance Reaction Severity Status penicillin itchy/rash/blisters Active aspirin rash/itchy Active Percocet 5/325 1 C/O: itching Active amLODIPine ankle edema Active 1pt states still takes Immunizations Given and Recorded Vaccine Date Status Refusal Reason SARS-CoV-2 (COVID-19) mRNA-1273 vaccine 12/24/21 R ecorded [...] Refills, Maintenance, 12/20/19 10:09:00 EDT, Solution, [facility], 168, cm, 11/19/19 13:14:00 EDT, Height, 89.2, kg, 06/19/19 1:03:00 EDT, Dry Weight Start Date: 12/20/19 Status: Ordered albuterol CFC free 90 mcg/inh inhalation aerosol 2, puffs, Inhalation, 4 times a day, PRN, # 18 Gm, Refills 1, Tot. Refills 1, Maintenance, 02/08/2314:39:00 EDT, Aerosol, Route to Pharmacy Electronically, [id number], [facility], 163, cm, 02/08/23 13:53:00 E... Start [...] mg, By Mouth, Daily, please label in yakut., # 30 tablet, 11 Refills, Maintenance, 06/23/20 20:27:00 EDT, Tablet, [facility], 168, cm, 11/19/19 13:14:00 EDT, Height, [...] EDT, Supply Start Date: 12/04/20 Status: Ordered eszopiclone 2 mg oral tablet 1 TABLET BY MOUTH AT BEDTIME Start Date: 02/02/23 Status: Ordered Freestyle Lancets See Instructions, # 100 each, Refills 11, Tot. Refills 11, Maintenance, use as directed for Type 2 Diabetes Mellitus Test 3 times/day Instructions in Tristanian, 11/10/20 9:37:00 EST, Compound, 168, cm,11/19/19 13:14:00 EDT, Height, 89.2, kg, 06/19/19... Start Date: 11/10/20 Stop Date: 11/05/21 Status: Ordered Freestyle Lite Test Strips See Instructions, # 100 each, Refills 6, Tot. Refills 6, Maintenance, use as directed for Type 2 Diabetes Mellitus Test 3 times/day Instructions in Tristanian, 11/10/20 9:41:00 EST, Duplicate rx-Original rx sent 06/23/20. Remaining refills sent., [place]... Start Date: 11/10/20 Stop Date: 06/08/21 Status: Ordered gabapentin 300 mg oral capsule TAKE 1 CAPSULE BY MOUTH THREE TIMES DAILY Start Date: 02/02/23 Status: Ordered levothyroxine 125 mcg (0.125 mg) oral tablet 1 tablet = 125 mcg, By Mouth, Daily, # 90 tablet, 1 Refills, Maintenance, 02/03/23 6:24:00 EDT, [facility] Partial fill upon patient request if the prescription is for a schedule II opioid drug., 163, cm, 01/13/23 15:11:00 EDT... Start Date: 02/03/23 Stop Date: 08/02/23 Status: Ordered lisinopril 20 mg oral tablet 20 mg, 1, tablet, By Mouth, Daily, # 90 tablet, Refills 1, Tot. Refills 1, Maintenance, 01/31/23 12:02:00 EDT, Route to Pharmacy Electronically, [facility], Partial fill upon patient request if the prescription is for a schedule II opi... Start Date: 01/31/23 Stop Date: 07/30/23 Status: Ordered LORazepam 0.5 mg oral tablet TAKE 1 TABLET BY MOUTH TWICE A DAY NEEDED FOR ANXIETY- Start Date: 02/02/23 Status: Ordered metFORMIN 500 mg oral tablet, extended release See Instructions, LABEL IN PASHTO First three days take 1 tablet daily [...] 1 Refills, Maintenance, 01/31/23 12:04:00 EDT, Suspension, [facility], Partial fill upon patient request if the prescription is for aschedule II opioid drug., 163, cm, 01/13/23 15:11:0... Start Date: 01/31/23 Stop Date: 07/30/23 Status: Ordered Problem List Condition Confirmation Course Effective Dates Status H lt Status Informant Chronic pelvic pain Confirmed Active Chronic renal insufficiency Confirmed Active COVID-19 1 Confirmed 08/11/22 Active Diabetes Confirmed Active Fibromyalgia Confirmed Active GERD (gastroesophageal reflux disease) Confirmed Active Hypertension Confirmed Active Hypertriglyceridemia ; mild Confirmed Active Hypothyroid Confirmed Active Major depression, chronic Confirmed Active Mild intermittent asthma Confirmed Active Obese class I Confirmed Active KIRAN (obstructive sleep apnea) severe Confirmed 2017 Active Palpitations Confirmed Active *BHN/BHCP/CP-Ernesto Denney-[phone]/H [facility], active care coordination Confirmed Active Colonic polyp Confirmed Active Seizure-like activity Confirmed Active Steatosis of liver Confirmed Active Vasovagal syncope Confirmed Active 1Problem added by Discern Expert Social History Social History Type Response Smoking Status Never smoker entered on: 01/14/16 Sex Female Patient Care team information Care Team Personnel Name: Germania Kelly RN Position: S RN Member Role: Primary Care Nurse Name: Shelly Yo RN Position: [facility] SN RN Member Role: Primary Care Nurse Name: Layla Chnug MD Position: [facility] Physician - Primary Care Member Role: PCP Address: Address: [address] [place] [address]- Name: Charis Schmitt RN Position: S RN Member Role: Primary Care Nurse Name: Flaca Roe RN Position: S RN Member Role: Primary Care Nurse Care Team Related Persons Name: MIS HARVEY Address: home [address] [place] [address] Name: ADRIAN HARVEY Address: [place] [address] Name: JACQUELINE HARVEY Address: home [address] [address]
--- OUTSIDE RECORDS SUMMARY | 2023-07-02 18:48 | XMS_ITS | Continuity of Care Document ---
Author Name Unknown Organization [facility] Address [address] [place] [address]- Care Team Providers Care Burr Picker Name Role Phone Vanessa Sharif DO Primary Care Physician [place] [facility] [place] 11/13/20 - 01/06/[address] [address] Attending Physician: Andrea Leggett OD Admitting Physician: Andrea Leggett OD Referring Physician: Vanessa Sharif DO Allergies, Adverse [...] 0 Refills, Maintenance, 12/20/19 10:09:00 EDT, Solution, [facility] 168, cm, 11/19/19 13:14:00 EDT, Height, 89.2, kg, 06/19/19 1:03:00 EDT, Dry Weight Start Date: 12/20/19 Status: Ordered Alcohol Wipes See Instructions, # 100 each, Refills 11, Tot. Refills 11, Maintenance, dx dm type 2 - E11.65 INSULIN DEPENDENT, CJWILLIANCK BS 3 X PER DAY, 08/09/19 12:59:00 EST, Compound Start Date: 08/09/19 Status: Ordered amitriptyline 25 mg oral tablet 25 mg, 1, tablet, By Mouth, Daily at bedtime, # 30 tablet, Refills 0, Maintenance, 10/31/19 17:02:00 EST Start Date: 10/31/19 Status: Ordered atorvastatin 40 mg oral tablet 1 tablet = 40 mg, By Mouth, Daily, please label in bangladeshi., # 30 tablet, 11 Refills, Maintenance, 06/23/20 20:27:00 EDT, Tablet, [facility], 168, cm, 11/19/19 13:14:00 EDT, Height, [...] PRN for dry skin, Print instructions in bangladeshi to affected area, # 454 Gm, 0 Refills, Maintenance, 11/25/20 14:30:00 EDT, Cream, [facility], Partial fill upon patient request if the prescripti... Start Date: 11/25/20 Status: Ordered Claritin 10 mg oral tablet 10 mg, By Mouth, Daily, # 90 tablet, Refills 0, Tot. Refills 0, Maintenance, 06/23/20 9:15:00 EDT, Route to Pharmacy Electronically, [facility], 168, cm, 11/19/19 13:14:00 EDT, Height, [...] 2 Refills, Maintenance, 11/13/20 9:14:00 EST, Gel, [facility] Somali label, 168, cm, 11/13/20 8:37:00 EST,... Start Date: 11/13/20 Status: Ordered Freestyle Lancets See Instructions, # 100 each, Refills 11, Tot. Refills 11, Maintenance, use as directed for Type 2 Diabetes Mellitus Test 3 times/day Instructions in Somali, 11/10/20 9:37:00 EST, Compound, 168, cm,11/19/19 13:14:00 EDT, Height, 89.2, kg, 06/19/19... Start Date: 11/10/20 Stop Date: 11/05/21 Status: Ordered Freestyle Lite Test Strips See Instructions, # 100 each, Refills 6, Tot. Refills 6, Maintenance, use as directed for Type 2 Diabetes Mellitus Test 3 times/day Instructions in Somali, 11/10/20 9:41:00 EST, Duplicate rx-Original rx sent 06/23/20. Remaining refills sent., [place]... Start Date: 11/10/20 Stop Date: 06/08/21 Status: Ordered gabapentin 600 mg oral tablet 1 tablet = 600 mg, By Mouth, 3 times a day, Somali label, # 90 tablet, 5 Refills, Maintenance, 05/12/21 13:56:00 EDT, Tablet, [facility]., 168, cm, 11/19/19 13:14:00 EDT, Height, 89.2, kg, 06/19/19 1:03:00 EDT, Dry Weight Start Date: 05/12/21 Stop Date: 11/08/21 Status: Ordered Lac-Hydrin 12% lotion 1 application, Topically, 2 times a day, PRN Dry Skin, Apply and rub in well, # 400 Gm, 2 Refills, Maintenance, 11/13/20 9:08:00 EST, Lotion, [facility], Somali label, 1 application Topically 2 times a [...] PRN Pain , Moderate, Print instructions in bangladeshi wash hands thoroughly after application, # 50 Gm, 1 Refills, Maintenance, 11/25/20 14:45:00 EDT, Ointment, [facility], Partial fill upon patie... Start Date: 11/25/20 Status: Ordered lisinopril 10 mg oral tablet 10 mg, 1, tablet, By Mouth, Daily, # 30 tablet, Refills 0, Tot. Refills 0, Maintenance, 12/04/20 14:27:00 EDT, Route to Pharmacy Electronically, [facility], Partial fill upon patient request if the prescription is for a schedule II opioi... Start Date: 12/04/20 Status: Ordered metFORMIN 500 mg oral tablet, extended release See Instructions, Take 1000 mg (2 tabs) in the morning and 500 mg (1 tab) in the evening; with food; Somali label, # 90 tablet, 5 Refills, Maintenance, 11/06/20 13:47:00 EST, [facility]., 168, cm, 11/19/19 13:14:00 EDT, Height, 89.2, k... Start Date: 11/06/20 Status: Ordered montelukast 10 mg oral tablet 10 mg, 1, tablet, By Mouth, Daily, # 90 tablet, Refills 5, Tot. Refills 5, Maintenance, 12/20/19 10:09:00 EDT, Route to Pharmacy Electronically, [facility], 168, cm, 11/19/19 13:14:00EDT, Height, 89.2, [...] 15:09:00 EST, Aerosol, Route to Pharmacy Electronically, [id number], [facility], 168, cm, 11/19/19 13:14:00... Start Date: [...] Refills, Maintenance, 11/13/20 9:08:00 EST, ER Tablet, [facility], Partial fill upon patient request if [...] 14:03:00 EST, ER Tablet, [facility]., Somali label, 168, cm, 11/19/19 13:14:00 EDT, Height, 89.2, k... Start Date: 11/06/20 Status: Ordered Vitamin D3 1000 intl units oral capsule 1 capsule = 1,000 International_Units, By Mouth, Daily, Somali label please; with food, # 30 capsule, [...] ) severe(Confirmed) 2017 Active Palpitations(Confirmed) Active *BHN/BHCP/Lisa Denney-[phone]/Health detention, active care coordination(Confirmed) Active Seizure-like activity(Confirmed) Active Steatosis of liver(Confirmed) Active Vasovagal syncope(Confirmed) Active Social History Social History Type Response Smoking Status Never smoker entered on: 01/14/16 Sex Female
--- OUTSIDE RECORDS SUMMARY | 2023-07-02 18:48 | XMS_ITS | Continuity of Care Document ---
Author Name Unknown Organization [facility] Address [address] [place] [address]- Care Team Providers Care Vocal Music Instructor Name Role Phone Vanessa Sharif DO Primary Care Physician En[place] [facility] [place](s): 11/24/20 - 12/24/20 [facility] [address], [place] [address] Allergies, Adverse Reactions, Alerts Substance Reaction Severity [...] 0 Refills, Maintenance, 12/20/19 10:09:00 EDT, Solution, [facility], 168, cm, 11/19/19 13:14:00 EDT, [...] mg, By Mouth, Daily, please label in ghanaian., # 30 tablet, 11 Refills, Maintenance, 06/23/20 20:27:00 EDT, Tablet, [facility], 168, cm, 11/19/19 13:14:00 EDT, Height, [...] PRN for dry skin, Print instructions in ghanaian to affected area, # 454 Gm, 0 Refills, Maintenance, 11/25/20 14:30:00 EDT, Cream, [facility], Partial fill upon patient request if the prescripti... Start Date: 11/25/20 Status: Ordered Claritin 10 mg oral tablet 10 mg, By Mouth, Daily, # 90 tablet, Refills 0, Tot. Refills 0, Maintenance, 06/23/20 9:15:00 EDT, Route to Pharmacy Electronically, [facility], 168, cm, 11/19/19 13:14:00 EDT, Height, [...] 2 Refills, Maintenance, 11/13/20 9:14:00 EST, Gel, [facility] Cuban label, 168, cm, 11/13/20 8:37:00 EST,... Start Date: 11/13/20 Status: Ordered Freestyle Lancets See Instructions, # 100 each, Refills 11, Tot. Refills 11, Maintenance, use as directed for Type 2 Diabetes Mellitus Test 3 times/day Instructions in Cuban, 11/10/20 9:37:00 EST, Compound, 168, cm,11/19/19 13:14:00 EDT, Height, 89.2, kg, 06/19/19... Start Date: 11/10/20 Stop Date: 11/05/21 Status: Ordered Freestyle Lite Test Strips See Instructions, # 100 each, Refills 6, Tot. Refills 6, Maintenance, use as directed for Type 2 Diabetes Mellitus Test 3 times/day Instructions in Cuban, 11/10/20 9:41:00 EST, Duplicate rx-Original rx sent 06/23/20. Remaining refills sent[address]... Start Date: 11/10/20 Stop Date: 06/08/21 Status: Ordered gabapentin 600 mg oral tablet 1 tablet = 600 mg, By Mouth, 3 times a day, Cuban label, # 90 tablet, 5 Refills, Maintenance, 05/12/21 13:56:00 EDT, Tablet, [facility] 168, cm, 11/19/19 13:14:00 EDT, Height, 89.2, kg, 06/19/19 1:03:00 EDT, Dry Weight Start Date: 05/12/21 Stop Date: 11/08/21 Status: Ordered Lac-Hydrin 12% lotion 1 application, Topically, 2 times a day, PRN Dry Skin, Apply and rub in well, # 400 Gm, 2 Refills, Maintenance, 11/13/20 9:08:00 EST, Lotion, [facility], Cuban label, 1 application Topically 2 times a [...] PRN Pain , Moderate, Print instructions in ghanaian wash hands thoroughly after application, # 50 Gm, 1 Refills, Maintenance, 11/25/20 14:45:00 EDT, Ointment, [facility], Partial fill upon patie... Start Date: 11/25/20 Status: Ordered lisinopril 10 mg oral tablet 10 mg, 1, tablet, By Mouth, Daily, # 30 tablet, Refills 0, Tot. Refills 0, Maintenance, 12/04/20 14:27:00 EDT, Route to Pharmacy Electronically, [facility], Partial fill upon patient request if the prescription is for a schedule II opioi... Start Date: 12/04/20 Status: Ordered metFORMIN 500 mg oral tablet, extended release See Instructions, Take 1000 mg (2 tabs) in the morning and 500 mg (1 tab) in the evening; with food; Cuban label, # 90 tablet, 5 Refills, Maintenance, 11/06/20 13:47:00 EST, [facility]., 168, cm, 11/19/19 13:14:00 EDT, Height, 89.2, k... Start Date: 11/06/20 Status: Ordered montelukast 10 mg oral tablet 10 mg, 1, tablet, By Mouth, Daily, # 90 tablet, Refills 5, Tot. Refills 5, Maintenance, 12/20/19 10:09:00 EDT, Route to Pharmacy Electronically, [facility]., 168, cm, 11/19/19 13:14:00EDT, Height, 89.2, [...] 15:09:00 EST, Aerosol, Route to Pharmacy Electronically, [id number], [facility], 168, cm, 11/19/19 13:14:00... Start Date: [...] Refills, Maintenance, 11/13/20 9:08:00 EST, ER Tablet, [facility], Partial fill upon patient request if [...] Maintenance, 11/06/20 14:03:00 EST, ER Tablet, [facility]., Cuban label, 168, cm, 11/19/19 13:14:00 EDT, Height, 89.2, k... Start Date: 11/06/20 Status: Ordered Vitamin D3 1000 intl units oral capsule 1 capsule = 1,000 International_Units, By Mouth, Daily, Cuban label please; with food, # 30 capsule, 5 Refills, Maintenance, 11/06/20 11:55:00 EST, Capsule, [facility]., 168, cm, 11/19/19 13:14:00 EDT, Height, [...] ) severe(Confirmed) 2017 Active Palpitations(Confirmed) Active *BHN/BHCP/KRISTINE-Barbie Denney-[phone]/Health skilled nursing, active care coordination(Confirmed) Active Seizure-like activity(Confirmed) Active Steatosis of liver(Confirmed) Active Vasovagal syncope(Confirmed) Active Social History Social History Type Response Smoking Status Never smoker entered on: 01/14/16 Sex Female
--- OUTSIDE RECORDS SUMMARY | 2023-07-02 18:48 | XMS_ITS | Continuity of Care Document ---
Author Name Unknown Organization [facility] Address [address] [place] [address]- Care Team Providers Care Hat And Cap Sewer Name Role Phone Vanessa Sharif DO Primary Care Physician [place] [facility] 01/23/20 [facility] [address] [place] [address]- [facility] Encounter Diagnosis UTI (urinary tract infection)(Discharge Diagnosis) - 01/16/20 Irritable bowel syndrome(Discharge Diagnosis) - 01/16/20 Asthma(Discharge Diagnosis) - 01/16/20 Attending Physician: Caroline SORIA, Cortney Arriola Admitting Physician: Tesfaye SORIA, Paul Dinh Allergies, Adverse Reactions, Alerts Substance Reaction Severity Status penicillin itchy/rash/blisters Active aspirin rash/itchy Active Percocet 1 C/O: itching Active 1pt states still [...] # 100 tablet, 0 Refills, Physician Stop 03/06/20 10:56:00 EDT, 01/15/20 10:54:00 EDT, [facility]... Start Date: 01/15/20 Stop Date: 03/06/20 Status: Ordered albuterol 0.083% inhalation solution 3 mL = 2.5 mg, Inhalation, Every 6 hours, PRN for wheezing, # 60 each, 0 Refills, Maintenance, 12/20/19 10:09:00 EDT, Solution, [facility]., 168, cm, 11/19/19 13:14:00 EDT, Height, [...] mg, By Mouth, Daily, please label in occitan. discontinue the atorvastatin, # 30 tablet, 5 Refills, Maintenance, 12/18/19 16:05:00 EDT, Tablet, [facility]., 168, cm, 11/19/19 13:14:00 EDT, Height, [...] betamethasone topical dipropionate 0.05% cream See Instructions, BETHANY RODRIGUEZ AL AREA AFECTADA DOS VECES AL MANUEL, # 50 Gm, 0 Refills, Acute, [facility], 25, APLICAR A LA PIEL AL AREA AFECTADA DOS VECES AL MANUEL, 168, cm, 09/24/19 13:53:00 EST, Height, 89.2, kg, 06/19/19 1:03:00 EDT, Start Date: 10/23/19 Status: Ordered Claritin 10 mg oral tablet 10 mg, By Mouth, Daily, # 90 tablet, Refills 0, Tot. Refills 0, Maintenance, 12/18/19 14:20:00 EDT,Route to Pharmacy Electronically, [facility], 168, cm, 11/19/19 13:14:00 EDT, Height, [...] NECESARIO, # 30 Gm, 0 Refills, Acute, [facility], 14, APLICAR A LA PIEL AL AREA AFECTADA (DE LA ERUPCION EN EL PIE DERECHO) D... Start Date: 10/23/19 Status: Ordered diclofenac 1% topical gel 1 application, Topically, 4 times a day, PRN for pain, not to exceed 8 grams/day/single joint of upper extremities, # 100 Gm, 0 Refills, Maintenance, 01/19/20 19:54:00 EDT, Gel, [facility]., 168, cm, 11/19/19 13:14:00 EDT, Height, 89.2,... Start Date: 01/19/20 Status: Ordered Flovent HFA 220 mcg/inh inhalation aerosol 1 puffs, Inhalation, 2 times a day, # 12 Gm, 3 Refills, Maintenance, 12/20/19 13:42:00 EDT, Aerosol, [facility] 168, cm, 11/19/19 13:14:00 EDT, Height, 89.2, kg, 06/19/19 1:03:00 EDT, Dry Weight Start Date: 12/20/19 Status: Ordered Freestyle Lancets See Instructions, # 100 each, Refills 11, Tot. Refills 11, Maintenance, use as directed for Type 2 Diabetes Mellitus Test 3 times/day Instructions in Montserratian, 08/09/19 10:57:52 EST, Compound Start Date: 08/09/19 Stop Date: 08/03/20 Status: Ordered Freestyle Lite Test Strips See Instructions, # 100 each, Refills 11, Tot. Refills 11, Maintenance, use as directed for Type 2 Diabetes Mellitus Test 3 times/day Instructions in Montserratian, 08/09/19 10:57:52 EST, Compound Start Date: 08/09/19 Stop Date: 08/03/20 Status: Ordered gabapentin 600 mg oral tablet 1 tablet = 600 mg, By Mouth, 3 times a day, Montserratian label, # 270 tablet, 5 Refills, Maintenance, 11/19/19 13:56:00 EDT, Tablet, [facility] 168, cm, 11/19/19 13:14:00 EDT, Height, 89.2, kg, 06/19/19 1:03:00 EDT, Dry Weight Start Date: 11/19/19 Stop Date: 05/12/21 Status: Ordered levothyroxine 125 mcg (0.125 mg) oral tablet 1 tablet = 125 mcg, By Mouth, Daily, Montserratian label, # 30 tablet, 5 Refills, Maintenance, 09/10/19 15:16:00 EST, Tablet, [facility]., 168, cm, 09/10/19 13:44:00 EST, Height, 89.2, kg, 06/19/19 1:03:00 EDT, Dry Weight Start Date: 09/10/19 Status: Ordered Linzess 72 mcg oral capsule 0 Refills, Maintenance, 10/24/19 13:52:00 EST Start Date: 10/24/19 Status: Ordered lisinopril 30 mg oral tablet 1 tablet = 30 mg, By Mouth, Daily, dose increase, # 30 tablet, 11 Refills, Maintenance, 08/27/19 13:59:38 EST, [facility], 168, cm, 08/20/19 13:32:17 EST, Height, 89.2, kg, 06/19/19 1:03:24 EDT, Dry Weight Start Date: 08/27/19 Status: Ordered metFORMIN 500 mg oral tablet, extended release See Instructions, Take 1000 mg (2 tabs) in the morning and 500 mg (1 tab) in the evening; with food; Montserratian label, # 90 tablet, 5 Refills, Maintenance, 12/25/19 14:51:00 EDT, [facility], 168, cm, 11/19/19 13:14:00 EDT, Height, [...] 10:09:00 EDT, Route to Pharmacy Electronically, [facility], 168, cm, 11/19/19 13:14:00EDT, Height, 89.2, [...] capsule = 40 mg, By Mouth, Daily, Montserratian label please, # 60 capsule, 2 Refills, Maintenance, 12/06/19 13:25:00 EDT, EC Capsule, [facility], please discontinue amoxicillin/metronidazole/lansoprazole combination, 168, cm, 11/19/19 13:... Start Date: 12/06/19 Stop Date: 03/05/20 Status: Ordered omeprazole 40 mg oral enteric coated capsule 2 capsule = 80 mg, By Mouth, Daily, via [facility], # 60 capsule, 0 Refills, Maintenance, 01/07/20 13:53:00 EDT, CR Capsule Start Date: 01/07/20 Status: Ordered ProAir HFA 90 mcg/inh inhalation aerosol with adapter 1, puffs, Inhalation, Every 4 hours, PRN, # 8.5 Gm, Refills 5, Tot. Refills 5, Maintenance, 12/20/19 10:09:00 EDT, Aerosol, Route to Pharmacy Electronically, [id number], [facility], 168, , 11/19/19 13:14:00... Start Date: [...] 2 hours up to amaximum of 2; Montserratian label please, # 9 tablet, 0 Refills, Maintenance, 09/10/19 15:12:00 EST, Tablet, [facility], 168, , 09/10/19 13... Start Date: 09/10/19 Status: Ordered Vitamin D3 1000 intl units oral capsule 1 capsule = 1,000 International_Units, By Mouth, Daily, Montserratian label please; with food, # 30 capsule, 11 Refills, Maintenance, 12/08/19 10:59:00 EDT, Capsule, [facility] 168, cm, 11/19/19 13:14:00 [...] ) severe(Confirmed) 2017 Active Palpitations(Confirmed) Active *BHN/BHKRISTINE/Vasquez Guillen-[phone]/Health skilled nursing, active care coordination(Confirmed) Active Seizure-like activity(Confirmed) Active Steatosis of liver(Confirmed) Active Vasovagal syncope(Confirmed) Active Diagnosis Diagnosis Type Effective Dates Health Status Cl inical Service Informant UTI (urinary tract infection) Discharge Diagnosis 01/16/20 Irritable bowel syndrome Discharge Diagnosis 01/16/20 Asthma Discharge Diagnosis 01/16/20 Social History Social History Type Response Smoking Status Never smoker entered on: 01/14/16 Sex Female
--- OUTSIDE RECORDS SUMMARY | 2023-07-02 18:49 | XMS_ITS | Continuity of Care Document ---
Author Name Unknown Organization [facility] ter Address [address] [place] [id number]- Care Team Providers Care Classification Analyst Name Role Phone Lotus Lott [id number] - 01/16/[address] [address]- Discharge Disposition: A-D/C Walkout Attending Physician: Not [...] 0 Refills, Maintenance, 12/20/19 10:09:00 EDT, Solution, [facility] 168, cm, 11/19/19 13:14:00 [...] mg, By Mouth, Daily, please label in american., # 30 tablet, 11 Refills, Maintenance, 06/23/20 20:27:00 EDT, Tablet, [facility], 168, [...] PRN for dry skin, Print instructions in american to affected area, # 454 Gm, 0 Refills, Maintenance, 11/25/20 14:30:00 EDT, Cream, [facility], Partial fill upon patient request if the prescripti... Start Date: 11/25/20 Status: Ordered Claritin 10 mg oral tablet 10 mg, By Mouth, Daily, # 90 tablet, Refills 0, Tot. Refills 0, Maintenance, 06/23/20 9:15:00 EDT, Route to Pharmacy Electronically, [facility] [...] 2 Refills, Maintenance, 11/13/20 9:14:00 EST, [facility] Northern Irish label, 168, cm, 11/13/20 8:37:00 EST,... Start Date: 11/13/20 Status: Ordered Freestyle Lancets See Instructions, # 100 each, Refills 11, Tot. Refills 11, Maintenance, use as directed for Type 2 Diabetes Mellitus Test 3 times/day Instructions in Northern Irish, 11/10/20 9:37:00 EST, Compound, 168, cm,11/19/19 13:14:00 EDT, Height, 89.2, kg, 06/19/19... Start Date: 11/10/20 Stop Date: 11/05/21 Status: Ordered Freestyle Lite Test Strips See Instructions, # 100 each, Refills 6, Tot. Refills 6, Maintenance, use as directed for Type 2 Diabetes Mellitus Test 3 times/day Instructions in Northern Irish, 11/10/20 9:41:00 EST, Duplicate rx-Original rx sent 06/23/20. Remaining refills sent., [place]... Start Date: 11/10/20 Stop Date: 06/08/21 Status: Ordered gabapentin 600 mg oral tablet 1 tablet = 600 mg, By Mouth, 3 times a day, Northern Irish label, # 90 tablet, 5 Refills, Maintenance, 05/12/21 13:56:00 EDT, Tablet, [facility]., 168, cm, 11/19/19 13:14:00 EDT, Height, 89.2, kg, 06/19/19 1:03:00 EDT, Dry Weight Start Date: 05/12/21 Stop Date: 11/08/21 Status: Ordered Lac-Hydrin 12% lotion 1 application, Topically, 2 times a day, PRN Dry Skin, Apply and rub in well, # 400 Gm, 2 Refills, Maintenance, 11/13/20 9:08:00 EST, Lotion, [facility], Northern Irish label, 1 application Topically 2 times a [...] PRN Pain , Moderate, Print instructions in american wash hands thoroughly after application, # 50 Gm, 1 Refills, Maintenance, 11/25/20 14:45:00 EDT, Ointment, [facility], Partial fill upon patie... Start Date: 11/25/20 Status: Ordered lisinopril 10 mg oral tablet 10 mg, 1, tablet, By Mouth, Daily, # 30 tablet, Refills 0, Tot. Refills 0, Maintenance, 12/04/20 14:27:00 EDT, Route to Pharmacy Electronically, [facility], Partial fill upon patient request if the prescription is for a schedule II opioi... Start Date: 12/04/20 Status: Ordered metFORMIN 500 mg oral tablet, extended release See Instructions, Take 1000 mg (2 tabs) in the morning and 500 mg (1 tab) in the evening; with food; Northern Irish label, # 90 tablet, 5 Refills, Maintenance, 11/06/20 13:47:00 EST, [facility]., 168, cm, 11/19/19 13:14:00 EDT, Height, 89.2, k... Start Date: 11/06/20 Status: Ordered montelukast 10 mg oral tablet 10 mg, 1, tablet, By Mouth, Daily, # 90 tablet, Refills 5, Tot. Refills 5, Maintenance, 12/20/19 10:09:00 EDT, Route to Pharmacy Electronically, [facility]., 168, cm, 11/19/19 13:14:00EDT, Height, 89.2, kg, [...] 15:09:00 EST, Aerosol, Route to Pharmacy Electronically, [id number], [facility], 168, cm, 11/19/19 13:14:00... Start Date: [...] Refills, Maintenance, 11/13/20 9:08:00 EST, ER Tablet, [facility], Partial fill upon patient request if [...] Refills, Maintenance, 11/06/20 14:03:00 EST, ER Tablet, [facility]., Northern Irish label, 168, cm, 11/19/19 13:14:00 EDT, Height, 89.2, k... Start Date: 11/06/20 Status: Ordered Vitamin D3 1000 intl units oral capsule 1 capsule = 1,000 International_Units, By Mouth, Daily, Northern Irish label please; with food, # 30 capsule, 5 Refills, Maintenance, 11/06/20 11:55:00 EST, Capsule, [facility]., 168, cm, 11/19/19 13:14:00 EDT, Height, 89.2, [...] ) severe(Confirmed) 2017 Active Palpitations(Confirmed) Active *BHN/BHCP/Lisa Denney-[phone]/Health skilled nursing, active care coordination(Confirmed) Active Seizure-like activity(Confirmed) Active Steatosis of liver(Confirmed) Active Vasovagal syncope(Confirmed) Active Vital Signs Most recent to oldest [Reference Range]: 1 Oxygen Saturation [94-100 %] 96 % (01/15/22 10:07 PM) Pulse Rate [55-90 bpm] 67 bpm (01/15/22 10:07 PM) Blood Pressure [90-138/55-84 mm Hg] 154/ 88mm Hg *H* (01/15/22 10:07 PM) Respiratory Rate [16-30 br/min] 21 br/mi n (01/15/22 10:07 PM) Temperature [96.8-100.4 DegF] 98.2 DegF (01/15/22 10:07 PM) Mode of Delivery (Oxygen) Room air (01/15/22 10:07 PM) Temperature Route Oral (01/15/22 10:07 PM) Social History Social History Type Response Smoking Status Never smoker entered on: 01/14/16 Sex Female
--- OUTSIDE RECORDS SUMMARY | 2023-07-02 18:49 | XMS_ITS | Continuity of Care Document ---
Author Name Unknown Organization [facility] Address [address] [place] [id number]- Care Team Providers Care Road Crew Member Name Role Phone Lotus Lott Primary Care Physician Encounter [facility] Date(s): 04/19/22 - 05/19/22 [facility] [address] [place] [id number]- Attending Physician: Silvino Vance Admitting Physician: AdmSilvino hicks Referring Physician: Admtr, Ar8 Allergies, Adverse Reactions, [...] 0 Refills, Maintenance, 12/20/19 10:09:00 EDT, Solution, [facility] 168, cm, 11/19/19 [...] 11 Refills, Maintenance, 06/23/20 20:27:00 EDT, Tablet, [facility], 168, cm, 11/19/19 13:14:00 EDT, Height, [...] PRN for dry skin, Print instructions in ecuadorean to affected area, # 454 Gm, 0 Refills, Maintenance, 11/25/20 14:30:00 EDT, Cream, [facility], Partial fill upon patient request if the prescripti... Start Date: 11/25/20 Status: Ordered Claritin 10 mg oral tablet 10 mg, By Mouth, Daily, # 90 tablet, Refills 0, Tot. Refills 0, Maintenance, 06/23/20 9:15:00 EDT, Route to Pharmacy Electronically, [facility], 168, cm, 11/19/19 13:14:00 EDT, Height, [...] 2 Refills, Maintenance, 11/13/20 9:14:00 EST, Gel, [facility] Chinese label, 168, cm, 11/13/20 8:37:00 EST,... Start Date: 11/13/20 Status: Ordered Freestyle Lancets See Instructions, # 100 each, Refills 11, Tot. Refills 11, Maintenance, use as directed for Type 2 Diabetes Mellitus Test 3 times/day Instructions in Chinese, 11/10/20 9:37:00 EST, Compound, 168, cm,11/19/19 13:14:00 EDT, Height, 89.2, kg, 06/19/19... Start Date: 11/10/20 Stop Date: 11/05/21 Status: Ordered Freestyle Lite Test Strips See Instructions, # 100 each, Refills 6, Tot. Refills 6, Maintenance, use as directed for Type 2 Diabetes Mellitus Test 3 times/day Instructions in Chinese, 11/10/20 9:41:00 EST, Duplicate rx-Original rx sent 06/23/20. Remaining refills sent., [place]... Start Date: 11/10/20 Stop Date: 06/08/21 Status: Ordered gabapentin 600 mg oral tablet 1 tablet = 600 mg, By Mouth, 3 times a day, Chinese label, # 90 tablet, 5 Refills, Maintenance, 05/12/21 13:56:00 EDT, Tablet, [facility]., 168, cm, 11/19/19 13:14:00 EDT, Height, 89.2, kg, 06/19/19 1:03:00 EDT, Dry Weight Start Date: 05/12/21 Stop Date: 11/08/21 Status: Ordered Lac-Hydrin 12% lotion 1 application, Topically, 2 times a day, PRN Dry Skin, Apply and rub in well, # 400 Gm, 2 Refills, Maintenance, 11/13/20 9:08:00 EST, Lotion, [facility], Chinese label, 1 application Topically 2 times a [...] PRN Pain , Moderate, Print instructions in ecuadorean wash hands thoroughly after application, # 50 Gm, 1 Refills, Maintenance, 11/25/20 14:45:00 EDT, Ointment, [facility], Partial fill upon patie... Start Date: 11/25/20 Status: Ordered lisinopril 10 mg oral tablet 10 mg, 1, tablet, By Mouth, Daily, # 30 tablet, Refills 0, Tot. Refills 0, Maintenance, 12/04/20 14:27:00 EDT, Route to Pharmacy Electronically, [facility], Partial fill upon patient request if the prescription is for a schedule II opioi... Start Date: 12/04/20 Status: Ordered Metamucil 3.4 gm/5.2 gm oral powder for reconstitution = 3.4 Gm, By Mouth, 3 times a day, PRN as needed for constipation, # 1,042 Gm, 0 Refills, Acute 04/20/23 13:53:00 EDT, 04/19/22 13:51:00 EDT, REC Powder, [id number], Partial fill upon patientrequest if the prescription is for a schedule II op... Start Date: 04/19/22 Stop Date: 04/20/23 Status: Ordered metFORMIN 500 mg oral tablet, extended release See Instructions, Take 1000 mg (2 tabs) in the morning and 500 mg (1 tab) in the evening; with food; Chinese label, # 90 tablet, 5 Refills, Maintenance, 11/06/20 13:47:00 EST, [facility], 168, cm, 11/19/19 13:14:00 EDT, Height, 89.2, k... Start Date: 11/06/20 Status: Ordered montelukast 10 mg oral tablet 10 mg, 1, tablet, By Mouth, Daily, # 90 tablet, Refills 5, Tot. Refills 5, Maintenance, 12/20/19 10:09:00 EDT, Route to Pharmacy Electronically, [facility], 168, cm, 11/19/19 13:14:00EDT, Height, 89.2, [...] (Eqv-GoLYTELY) oral powder for reconstitution See Instructions, Chinese instructions Mix powder with water according to the product label. Follow[facility] instructions stating when to drink the prep fluid on the evening before the colonoswowpcy. 8 oz every 20 minutes, # 1 each, 0 Refills, Ma... Start Date: 04/19/22 Status: Ordered ProAir HFA 90 mcg/inh inhalation aerosol with adapter 1, puffs, Inhalation, Every 4 hours, PRN, # 8.5 Gm, Refills 5, Tot. Refills 5, Maintenance, 07/31/20 15:09:00 EST, Aerosol, Route to Pharmacy Electronically, [id number], [facility]., 168, cm, 11/19/19 13:14:00... Start Date: 07/31/20 Status: Ordered QUEtiapine 50 mg oral tablet 1 tablet = 50 mg, By Mouth, 2 times a day, PRN Anxiety, Delusions, Prescribed by Glendy Ospina [employer], # 60 tablet, 0 Refills, Maintenance, 10/31/19 17:10:00 EST, Tablet Start Date: 10/31/19 Status: Ordered Slow Fe (as elemental iron) 45 mg oral tablet, extended release 1 tablet = 45 mg, By Mouth, Daily, # 30 tablet, 2 Refills, Maintenance, 11/13/20 9:08:00 EST, ER Tablet, [facility], Partial fill upon patient request if [...] Refills, Maintenance, 11/06/20 14:03:00 EST, ER Tablet, [facility], Chinese label, 168, cm, 11/19/19 13:14:00 EDT, Height, 89.2, k... Start Date: 11/06/20 Status: Ordered Vitamin D3 1000 intl units oral capsule 1 capsule = 1,000 International_Units, By Mouth, Daily, Chinese label please; with food, # 30 capsule, 5 Refills, Maintenance, 11/06/20 11:55:00 EST, Capsule, [facility]., 168, cm, 11/19/19 13:14:00 EDT, Height, 89.2, kg, 06/19/19 1:03:... Start Date: 11/06/20 Stop Date: 05/05/21 Status: Ordered Problem List Condition Effective Dates Status Health Status Inform ant Chronic pelvic pain(Confirmed) Active Chronic renal insufficiency(Confirmed) Active Diabetes(Confirmed) Active Fibromyalgia(Confirmed) Active GERD (gastroesophageal reflu x disease)(Confirmed) Active Hypertension(Confirmed) Active Hypertriglyceridemia; mild(Confirmed) Active Hypothyroid(Confirmed) Active Major depression, chronic(Confirmed) Active Obese class I(Confirmed) Active KIRAN (obstructive sleep apnea ) severe(Confirmed) 2017 Active Palpitations(Confirmed) Active *BHN/BHCP/KRISTINE-Barbie Denney-[phone]/Health halfway, active care coordination(Confirmed) Active Seizure-like activity(Confirmed) Active Steatosis of liver(Confirmed) Active Vasovagal syncope(Confirmed) Active Social History Social History Type Response Smoking Status Never smoker entered on: 01/14/16 Sex Female Care Team Personnel Name: Lotus Lott Address: [address] [place] [address]
--- OUTSIDE RECORDS SUMMARY | 2023-07-02 18:49 | XMS_ITS | Continuity of Care Document ---
Author Name Unknown Organization [facility] Address [address] [place] [address]- Care Team Providers Care Computer Game Tester Name Role Phone Vanessa Sharif DO Primary Care Physician [place] [facility] Date(s): 11/09/20 - 12/09/20 [facility] [address], [place] [address] Allergies, Adverse Reactions, Alerts Substance Reaction Severity [...] 0 Refills, Maintenance, 12/20/19 10:09:00 EDT, Solution, [facility], 168, cm, 11/19/19 13:14:00 [...] mg, By Mouth, Daily, please label in lebanese., # 30 tablet, 11 Refills, Maintenance, 06/23/20 20:27:00 EDT, Tablet, [facility], 168, cm, 11/19/19 13:14:00 [...] PRN for dry skin, Print instructions in lebanese to affected area, # 454 Gm, 0 Refills, Maintenance, 11/25/20 14:30:00 EDT, Cream, [facility], Partial fill upon patient request if the prescripti... Start Date: 11/25/20 Status: Ordered Claritin 10 mg oral tablet 10 mg, By Mouth, Daily, # 90 tablet, Refills 0, Tot. Refills 0, Maintenance, 06/23/20 9:15:00 EDT, Route to Pharmacy Electronically, [facility], 168, cm, 11/19/19 13:14:00 [...] 2 Refills, Maintenance, 11/13/20 9:14:00 EST, Gel[facility] Japanese label, 168, cm, 11/13/20 8:37:00 EST,... Start Date: 11/13/20 Status: Ordered Freestyle Lancets See Instructions, # 100 each, Refills 11, Tot. Refills 11, Maintenance, use as directed for Type 2 Diabetes Mellitus Test 3 times/day Instructions in Japanese, 11/10/20 9:37:00 EST, Compound, 168, cm,11/19/19 13:14:00 EDT, Height, 89.2, kg, 06/19/19... Start Date: 11/10/20 Stop Date: 11/05/21 Status: Ordered Freestyle Lite Test Strips See Instructions, # 100 each, Refills 6, Tot. Refills 6, Maintenance, use as directed for Type 2 Diabetes Mellitus Test 3 times/day Instructions in Japanese, 11/10/20 9:41:00 EST, Duplicate rx-Original rx sent 06/23/20. Remaining refills sent., [place]... Start Date: 11/10/20 Stop Date: 06/08/21 Status: Ordered gabapentin 600 mg oral tablet 1 tablet = 600 mg, By Mouth, 3 times a day, Japanese label, # 90 tablet, 5 Refills, Maintenance, 05/12/21 13:56:00 EDT, Tablet, [facility], cm, 11/19/19 13:14:00 EDT, Height, 89.2, kg, 06/19/19 1:03:00 EDT, Dry Weight Start Date: 05/12/21 Stop Date: 11/08/21 Status: Ordered Lac-Hydrin 12% lotion 1 application, Topically, 2 times a day, PRN Dry Skin, Apply and rub in well, # 400 Gm, 2 Refills, Maintenance, 11/13/20 9:08:00 EST, Lotion, [facility], Japanese label, 1 application Topically 2 times a [...] PRN Pain , Moderate, Print instructions in lebanese wash hands thoroughly after application, # 50 Gm, 1 Refills, Maintenance, 11/25/20 14:45:00 EDT, Ointment, [facility], Partial fill upon patie... Start Date: 11/25/20 Status: Ordered lisinopril 10 mg oral tablet 10 mg, 1, tablet, By Mouth, Daily, # 30 tablet, Refills 0, Tot. Refills 0, Maintenance, 12/04/20 14:27:00 EDT, Route to Pharmacy Electronically, [facility], Partial fill upon patient request if the prescription is for a schedule II opioi... Start Date: 12/04/20 Status: Ordered metFORMIN 500 mg oral tablet, extended release See Instructions, Take 1000 mg (2 tabs) in the morning and 500 mg (1 tab) in the evening; with food; Japanese label, # 90 tablet, 5 Refills, Maintenance, 11/06/20 13:47:00 EST, [facility]., 168, cm, 11/19/19 13:14:00 EDT, Height, 89.2, k... Start Date: 11/06/20 Status: Ordered montelukast 10 mg oral tablet 10 mg, 1, tablet, By Mouth, Daily, # 90 tablet, Refills 5, Tot. Refills 5, Maintenance, 12/20/19 10:09:00 EDT, Route to Pharmacy Electronically, [facility], 168, cm, 11/19/19 13:14:00EDT, [...] 15:09:00 EST, Aerosol, Route to Pharmacy Electronically, [id number], [facility], 168, cm, 11/19/19 13:14:00... [...] Refills, Maintenance, 11/13/20 9:08:00 EST, ER Tablet, [facility], Partial fill upon patient [...] 12/23/20 14:46:00 EDT, 11/25/20 14:46:00 EDT, Cream, [facility], Partial fill upon patient request if the prescription is... Start Date: 11/25/20 Stop Date: 12/23/20 Status: Ordered Tylenol 8 Hour 650 mg oral tablet, extended release 1 tablet = 650 mg, By Mouth, Every 8 hours, PRN Pain , Mild, Not to exceed 2000 mg/day., # 100 tablet, 2 Refills, Maintenance, 11/06/20 14:03:00 EST, ER Tablet, [facility]., Japanese label, 168, cm, 11/19/19 13:14:00 EDT, Height, 89.2, k... Start Date: 11/06/20 Status: Ordered Vitamin D3 1000 intl units oral capsule 1 capsule = 1,000 International_Units, By Mouth, Daily, Japanese label please; with food, # 30 capsule, 5 Refills, Maintenance, 11/06/20 11:55:00 EST, Capsule, [facility]., 168, cm, 11/19/19 13:14:00 EDT, Height, 89.2, [...] ) severe(Confirmed) 2017 Active Palpitations(Confirmed) Active *BHN/BHCP/CP-Barbie Torrea Visvb-[phone]/Health correction, active care coordination(Confirmed) Active Seizure-like activity(Confirmed) Active Steatosis of liver(Confirmed) Active Vasovagal syncope(Confirmed) Active Social History Social History Type Response Smoking Status Never smoker entered on: 01/14/16 Sex Female
--- OUTSIDE RECORDS SUMMARY | 2023-07-02 18:49 | XMS_ITS | Continuity of Care Document ---
Author Name Unknown Organization [facility] Address [address] [facility], 3r d Floor, [address] [place] [id number]- Care Team Providers Care Habilitation Worker Name Role Phone Lotus Lott Primary Care Physician [phone] [place] [facility] [place] 05/29/22 [facility] [address], 3rd [address], [address] [place] [address]- [place] Allergies, Adverse Reactions, Alerts Substance Reaction [...] 0 Refills, Maintenance, 12/20/19 10:09:00 EDT, Solution, [facility] 168, cm, 11/19/19 13:14:00 [...] 11 Refills, Maintenance, 06/23/20 20:27:00 EDT, Tablet, [facility], 168, cm, 11/19/19 13:14:00 EDT, Height, 89.2, [...] 0 Refills, Maintenance, 11/25/20 14:30:00 EDT, Cream, [facility], Partial fill upon patient request if the prescripti... Start Date: 11/25/20 Status: Ordered Claritin 10 mg oral tablet 10 mg, By Mouth, Daily, # 90 tablet, Refills 0, Tot. Refills 0, Maintenance, 06/23/20 9:15:00 EDT, Route to Pharmacy Electronically, [facility], 168, cm, 11/19/19 13:14:00 EDT, Height, 89.2, [...] 2 Refills, Maintenance, 11/13/20 9:14:00 EST, [facility] Cameroonian label, 168, cm, 11/13/20 8:37:00 EST,... Start Date: 11/13/20 Status: Ordered Freestyle Lancets See Instructions, # 100 each, Refills 11, Tot. Refills 11, Maintenance, use as directed for Type 2 Diabetes Mellitus Test 3 times/day Instructions in Cameroonian, 11/10/20 9:37:00 EST, Compound, 168, cm,11/19/19 13:14:00 EDT, Height, 89.2, kg, 06/19/19... Start Date: 11/10/20 Stop Date: 11/05/21 Status: Ordered Freestyle Lite Test Strips See Instructions, # 100 each, Refills 6, Tot. Refills 6, Maintenance, use as directed for Type 2 Diabetes Mellitus Test 3 times/day Instructions in Cameroonian, 11/10/20 9:41:00 EST, Duplicate rx-Original rx sent 06/23/20. Remaining refills sent., [place]... Start Date: 11/10/20 Stop Date: 06/08/21 Status: Ordered gabapentin 600 mg oral tablet 1 tablet = 600 mg, By Mouth, 3 times a day, Cameroonian label, # 90 tablet, 5 Refills, Maintenance, 05/12/21 13:56:00 EDT, Tablet, [facility] 168, cm, 11/19/19 13:14:00 EDT, Height, 89.2, kg, 06/19/19 1:03:00 EDT, Dry Weight Start Date: 05/12/21 Stop Date: 11/08/21 Status: Ordered Lac-Hydrin 12% lotion 1 application, Topically, 2 times a day, PRN Dry Skin, Apply and rub in well, # 400 Gm, 2 Refills, Maintenance, 11/13/20 9:08:00 EST, Lotion, [facility], Cameroonian label, 1 application Topically 2 times a [...] 1 Refills, Maintenance, 11/25/20 14:45:00 EDT, Ointment, [facility], Partial fill upon patie... Start Date: 11/25/20 Status: Ordered lisinopril 10 mg oral tablet 10 mg, 1, tablet, By Mouth, Daily, # 30 tablet, Refills 0, Tot. Refills 0, Maintenance, 12/04/20 14:27:00 EDT, Route to Pharmacy Electronically, [facility], Partial fill upon patient request if the prescription is for a schedule II opioi... Start Date: 12/04/20 Status: Ordered Metamucil 3.4 gm/5.2 gm oral powder for reconstitution = 3.4 Gm, By Mouth, 3 times a day, PRN as needed for constipation, # 1,042 Gm, 0 Refills, Acute 04/20/23 13:53:00 EDT, 04/19/22 13:51:00 EDT, REC Powder, [facility][id number], Partial fill upon patientrequest if the prescription is for a schedule II op... Start Date: 04/19/22 Stop Date: 04/20/23 Status: Ordered metFORMIN 500 mg oral tablet, extended release See Instructions, Take 1000 mg (2 tabs) in the morning and 500 mg (1 tab) in the evening; with food; Cameroonian label, # 90 tablet, 5 Refills, Maintenance, 11/06/20 13:47:00 EST, [facility], 168, cm, 11/19/19 13:14:00 EDT, Height, 89.2, k... Start Date: 11/06/20 Status: Ordered montelukast 10 mg oral tablet 10 mg, 1, tablet, By Mouth, Daily, # 90 tablet, Refills 5, Tot. Refills 5, Maintenance, 12/20/19 10:09:00 EDT, Route to Pharmacy Electronically, [facility], 168, cm, 11/19/19 13:14:00EDT, Height, 89.2, kg, [...] (Eqv-GoLYTELY) oral powder for reconstitution See Instructions, Cameroonian instructions Mix powder with water according to the product label. Followthe [facility] instructions stating when to drink [...] 15:09:00 EST, Aerosol, Route to Pharmacy Electronically, [id number], [facility], 168, cm, 11/19/19 13:14:00... Start Date: 07/31/20 [...] 11/13/20 9:08:00 EST, ER Tablet, [facility]., Partial fill upon patient request if the [...] 14:03:00 EST, ER Tablet, [facility]., Cameroonian label, 168, cm, 11/19/19 13:14:00 EDT, Height, 89.2, k... Start Date: 11/06/20 Status: Ordered Vitamin D3 1000 intl units oral capsule 1 capsule = 1,000 International_Units, By Mouth, Daily, Cameroonian label please; with food, # 30 capsule, 5 Refills, Maintenance, 11/06/20 11:55:00 EST, Capsule, [facility]., 168, cm, 11/19/19 13:14:00 EDT, Height, 89.2, kg, 10/09/19 1:03:... Start Date: 11/06/20 Stop Date: 05/05/21 Status: Ordered Problem List Condition Effective Dates Status Health Status Inform ant Chronic pelvic pain(Confirmed) Active Chronic renal insufficiency(Confirmed) Active Diabetes(Confirmed) Active Fibromyalgia(Confirmed) Active GERD (gastroesophageal reflu x disease)(Confirmed) Active Hypertension(Confirmed) Active Hypertriglyceridemia; mild(Confirmed) Active Hypothyroid(Confirmed) Active Major depression, chronic(Confirmed) Active Obese class I(Confirmed) Active KIRAN (obstructive sleep apnea ) severe(Confirmed) 2017 Active Palpitations(Confirmed) Active *BHN/BHCP/KRISTINE-Barbie Denney-[phone]/Health nursing home, active care coordination(Confirmed) Active Seizure-like activity(Confirmed) Active Steatosis of liver(Confirmed) Active Vasovagal syncope(Confirmed) Active Social History Social History Type Response Smoking Status Never smoker entered on: 01/14/16 Sex Female Care Team Personnel Name: Lotus Lott Address: [address] [place] [address]
--- OUTSIDE RECORDS SUMMARY | 2023-07-02 18:49 | XMS_ITS | Continuity of Care Document ---
Author Name Unknown Organization [facility] Address [address] [place] [id number]- Care Team Providers Care Aviation Consultant Name Role Phone Vanessa Sharif DO Primary Care Physician Encounter [facility] [place] Date(s): 04/08/20 - 04/08/[address] [address]- [place] Encounter Diagnosis Chest pain(Final) - 04/08/20 Nausea(Final) - 04/08/20 Abdominal pain(Final) - 04/08/20 Discharge Disposition: A-D/C Home Attending Physician: Simon Presley MD Admitting Physician: Simon Presley MD Referring Physician: Not on Staff, Referring [...] 30 days, Not to exceed 2000 mg/day. Ethiopian label.,# 90 tablet, 2 Refills, Acute 06/09/20 10:37:00 EDT, 03/11/20 10:37:00 EDT, [facility]., 168, c... Start Date: 03/11/20 Stop Date: 06/09/20 Status: Ordered albuterol 0.083% inhalation solution 3 mL = 2.5 mg, Inhalation, Every 6 hours, PRN for wheezing, # 60 each, 0 Refills, Maintenance, 12/20/19 10:09:00 EDT, Solution, [facility]., 168, cm, 11/19/19 13:14:00 EDT, Height, [...] mg, By Mouth, Daily, please label in upper sorbian. discontinue the atorvastatin, # 30 tablet, 5 Refills, Maintenance, 12/18/19 16:05:00 EDT, Tablet, [facility]., 168, cm, 11/19/19 13:14:00 EDT, Height, [...] MANUEL, # 50 Gm, 0 Refills, Acute, [facility], 25, APLICAR A LA PIEL AL AREA AFECTADA DOS VECES AL MANUEL, 168, cm, 09/24/19 13:53:00 EST, Height, 89.2, kg, 06/19/19 1:03:00 EDT, Start Date: 10/23/19 Status: Ordered Claritin 10 mg oral tablet 10 mg, By Mouth, Daily, # 90 tablet, Refills 0, Tot. Refills 0, Maintenance, 04/01/20 14:09:00 EDT,Route to Pharmacy Electronically, [facility], 168, cm, 11/19/19 13:14:00 EDT, Height, [...] NECESARIO, # 30 Gm, 0 Refills, Acute, [facility], 14, APLICAR A LA PIEL AL AREA AFECTADA (DE LA ERUPCION EN EL PIE DERECHO) D... Start Date: 10/23/19 Status: Ordered diclofenac 1% topical gel 1 application, Topically, 4 times a day, PRN for pain, not to exceed 8 grams/day/single joint of upper extremities, # 100 Gm, 0 Refills, Maintenance, 01/19/20 19:54:00 EDT, Gel, [facility]., 168, cm, 11/19/19 13:14:00 EDT, Height, 89.2,... Start Date: 01/19/20 Status: Ordered Flovent HFA 220 mcg/inh inhalation aerosol 1 puffs, Inhalation, 2 times a day, # 12 Gm, 3 Refills, Maintenance, 12/20/19 13:42:00 EDT, Aerosol, [facility] 168, cm, 11/19/19 13:14:00 EDT, Height, 89.2, kg, 06/19/19 1:03:00 EDT, Dry Weight Start Date: 12/20/19 Status: Ordered Freestyle Lancets See Instructions, # 100 each, Refills 11, Tot. Refills 11, Maintenance, use as directed for Type 2 Diabetes Mellitus Test 3 times/day Instructions in Ethiopian, 08/09/19 10:57:52 EST, Compound Start Date: 08/09/19 Stop Date: 08/03/20 Status: Ordered Freestyle Lite Test Strips See Instructions, # 100 each, Refills 11, Tot. Refills 11, Maintenance, use as directed for Type 2 Diabetes Mellitus Test 3 times/day Instructions in Ethiopian, 08/09/19 10:57:52 EST, Compound Start Date: 08/09/19 Stop Date: 08/03/20 Status: Ordered gabapentin 600 mg oral tablet 1 tablet = 600 mg, By Mouth, 3 times a day, Ethiopian label, # 270 tablet, 5 Refills, Maintenance, 11/19/19 13:56:00 EDT, Tablet, [facility]., 168, cm, 11/19/19 13:14:00 EDT, Height, 89.2, kg, 06/19/19 1:03:00 EDT, Dry Weight Start Date: 11/19/19 Stop Date: 05/12/21 Status: Ordered levothyroxine 125 mcg (0.125 mg) oral tablet 1 tablet = 125 mcg, By Mouth, Daily, Ethiopian label, # 30 tablet, 5 Refills, Maintenance, 09/10/19 15:16:00 EST, Tablet, [facility]., 168, cm, 09/10/19 13:44:00 EST, Height, 89.2, kg, 06/19/19 1:03:00 EDT, Dry Weight Start Date: 09/10/19 Status: Ordered Linzess 72 mcg oral capsule 0 Refills, Maintenance, 10/24/19 13:52:00 EST Start Date: 10/24/19 Status: Ordered lisinopril 30 mg oral tablet 1 tablet = 30 mg, By Mouth, Daily, dose increase, # 30 tablet, 11 Refills, Maintenance, 08/27/19 13:59:38 EST, [facility], 168, cm, 08/20/19 13:32:17 EST, Height, 89.2, kg, 06/19/19 1:03:24 EDT, Dry Weight Start Date: 08/27/19 Status: Ordered metFORMIN 500 mg oral tablet, extended release See Instructions, Take 1000 mg (2 tabs) in the morning and 500 mg (1 tab) in the evening; with food; Ethiopian label, # 90 tablet, 5 Refills, Maintenance, 12/25/19 14:51:00 EDT, [facility], 168, cm, 11/19/19 13:14:00 EDT, Height, [...] 10:09:00 EDT, Route to Pharmacy Electronically, [facility], 168, cm, 11/19/19 13:14:00EDT, Height, 89.2, [...] capsule = 40 mg, By Mouth, Daily, Ethiopian label please, # 60 capsule, 2 Refills, Maintenance, 12/06/19 13:25:00 EDT, EC Capsule, [facility], please discontinue amoxicillin/metronidazole/lansoprazole combination, 168, cm, 11/19/19 13:... Start Date: 12/06/19 Stop Date: 03/05/20 Status: Ordered omeprazole 40 mg oral enteric coated capsule 2 capsule = 80 mg, By Mouth, Daily, via [facility], # 60 capsule, 0 Refills, Maintenance, 01/07/20 13:53:00 EDT, CR Capsule Start Date: 01/07/20 Status: Ordered ProAir HFA 90 mcg/inh inhalation aerosol with adapter 1, puffs, Inhalation, Every 4 hours, PRN, # 8.5 Gm, Refills 5, Tot. Refills 5, Maintenance, 12/20/19 10:09:00 EDT, Aerosol, Route to Pharmacy Electronically, [id number], [facility], 168, , 11/19/19 13:14:00... Start Date: [...] 2 hours up to amaximum of 2; Ethiopian label please, # 9 tablet, 0 Refills, Maintenance, 09/10/19 15:12:00 EST, Tablet, [facility], 168, , 09/10/19 13... Start Date: 09/10/19 Status: Ordered Vitamin D3 1000 intl units oral capsule 1 capsule = 1,000 International_Units, By Mouth, Daily, Ethiopian label please; with food, # 30 capsule, 11 Refills, Maintenance, 12/08/19 10:59:00 EDT, Capsule, [facility] 168, cm, 11/19/19 13:14:00 [...] ) severe(Confirmed) 2017 Active Palpitations(Confirmed) Active *BHN/BHKRISTINE/Vasquez Guillen-[phone]/Health intermediate, active care coordination(Confirmed) Active Seizure-like activity(Confirmed) Active Steatosis of liver(Confirmed) Active Vasovagal syncope(Confirmed) Active Results Radiology Reports * Exam Date Time Procedure Performing Provider Status 04/08/20 11:27 AM Chest Portable [facility] (Verified) Notes: (Chest Portable) Reason For Exam: Shortness of Breath RESULT: Chest Portable Chest Portable Refer to EMR; Reason: Shortness of Breath; Clinical Question(s): CHF; COMPARISON: 02/28/2020 chest radiograph. FINDINGS: LINES AND TUBES: None. LUNGS AND PLEURA: Clear lungs. Normal pulmonary vascularity. No pleural effusion. No pneumothorax. HEART, MEDIASTINUM AND ANGELO: Heart is normal in size. Normal mediastinal and hilar contour. BONES AND SOFT TISSUES: No acute abnormality. IMPRESSION: No acute abnormality. WSN: [id number] Ordering Physician: Ponce Montiel Dictated By: Go Meneses MD Dictated Date/Time: 04/08/20 11:40 a Reviewed By: Go Meneses MD Signed By: Go Meneses MD Signed Date/Time: 04/08/20 11:40 am Transcribed By: CESAR Transcribed Date/Time: 04/08/20 11:39 am Vital Signs Most recent to oldest [Reference Range]: 1 2 3 Oxygen Saturation [94-100 %] 98 % (04/08/20 9:27 PM) 100 % (04/08/20 5:17 PM) 95 % (04/08/20 3:15 PM) Pulse Rate [55-90 bpm] 65 bpm (04/08/20 9:27 PM) 77 bpm (04/08/20 5:17 PM) 79 bpm (04/08/20 3:15 PM) Blood Pressure [90-138/55-84 mm Hg] 149/80mm Hg *H* (04/08/20 9:27 PM) 138/77mm Hg (04/08/20 5:17 PM) 135/73mm Hg (04/08/20 3:15 PM) Respiratory Rate [16-30 br/min] 16 br/min (04/08/20 9:27 PM) 21 br/min (04/08/20 5:17 PM) 18 br/min (04/08/20 3:15 PM) Temperature [96.8-100.4 DegF] 98.4 DegF (04/08/20 5:17 PM) 98.7 DegF (04/08/20 3:15 PM) 98.3 DegF (04/08/20 12:50 PM) Mode of Delivery (Oxygen) Room air (04/08/20 9:27 PM) Room air (04/08/20 5:17 PM) Room air (04/08/20 3:15 PM) Blood pressure sites Arm, left (04/08/20 9:27 PM) Arm, left (04/08/20 5:17 PM) Arm, left (04/08/20 3:15 PM) Temperature Route Oral (04/08/20 5:17 PM) Oral (04/08/20 3:15 PM) Oral (04/08/20 12:50 PM) Social History Social History Type Response Smoking Status Never smoker entered on: 01/14/16 Sex Female
--- OUTSIDE RECORDS SUMMARY | 2023-07-02 18:49 | XMS_ITS | Continuity of Care Document ---
Author Name Unknown Organization [facility] Address [address] [place] [address]- Care Team Providers Care Sash Clamp Operator Name Role Phone Vanessa Sharif DO Primary Care Physician Encounter [facility] Date(s): 03/31/20 - 04/30/20 [facility] [address] [place] [id number]- [facility] Allergies, Adverse Reactions, Alerts Substance Reaction Severity [...] 30 days, Not to exceed 2000 mg/day. Bulgarian label.,# 90 tablet, 2 Refills, Acute 06/09/20 10:37:00 EDT, 03/11/20 10:37:00 EDT, ER Tablet, [facility]., To replace prior Tylenol Rx., 168, c... Start Date: 03/11/20 Stop Date: 06/09/20 Status: Ordered albuterol 0.083% inhalation solution 3 mL = 2.5 mg, Inhalation, Every 6 hours, PRN for wheezing, # 60 each, 0 Refills, Maintenance, 12/20/19 10:09:00 EDT, Solution, [facility]., 168, cm, 11/19/19 13:14:00 EDT, Height, 89.2, [...] mg, By Mouth, Daily, please label in icelandic. discontinue the atorvastatin, # 30 tablet, 5 Refills, Maintenance, 12/18/19 16:05:00 EDT, Tablet, [facility], 168, cm, 11/19/19 13:14:00 EDT, Height, 89.2, [...] MANUEL, # 50 Gm, 0 Refills, Acute, [facility], 25, APLICAR A LA PIEL AL AREA AFECTADA DOS VECES AL MANUEL, 168, cm, 09/24/19 13:53:00 EST, Height, 89.2, kg, 06/19/19 1:03:00 EDT, Start Date: 10/23/19 Status: Ordered Claritin 10 mg oral tablet 10 mg, By Mouth, Daily, # 90 tablet, Refills 0, Tot. Refills 0, Maintenance, 04/01/20 14:09:00 EDT,Route to Pharmacy Electronically, [facility], 168, cm, 11/19/19 13:14:00 EDT, Height, 89.2, [...] NECESARIO, # 30 Gm, 0 Refills, Acute, [facility], 14, APLICAR A LA PIEL AL AREA AFECTADA (DE LA ERUPCION EN EL PIE DERECHO) D... Start Date: 10/23/19 Status: Ordered diclofenac 1% topical gel 1 application, Topically, 4 times a day, PRN for pain, not to exceed 8 grams/day/single joint of upper extremities, # 100 Gm, 0 Refills, Maintenance, 01/19/20 19:54:00 EDT, Gel, [facility], 168, cm, 11/19/19 13:14:00 EDT, Height, 89.2,... Start Date: 01/19/20 Status: Ordered Flovent HFA 220 mcg/inh inhalation aerosol 1 puffs, Inhalation, 2 times a day, # 12 Gm, 3 Refills, Maintenance, 12/20/19 13:42:00 EDT, Aerosol, [facility]., 168, cm, 11/19/19 13:14:00 EDT, Height, 89.2, kg, 06/19/19 1:03:00 EDT, Dry Weight Start Date: 12/20/19 Status: Ordered Freestyle Lancets See Instructions, # 100 each, Refills 11, Tot. Refills 11, Maintenance, use as directed for Type 2 Diabetes Mellitus Test 3 times/day Instructions in Bulgarian, 08/09/19 10:57:52 EST, Compound Start Date: 08/09/19 Stop Date: 08/03/20 Status: Ordered Freestyle Lite Test Strips See Instructions, # 100 each, Refills 11, Tot. Refills 11, Maintenance, use as directed for Type 2 Diabetes Mellitus Test 3 times/day Instructions in Bulgarian, 08/09/19 10:57:52 EST, Compound Start Date: 08/09/19 Stop Date: 08/03/20 Status: Ordered gabapentin 600 mg oral tablet 1 tablet = 600 mg, By Mouth, 3 times a day, Bulgarian label, # 270 tablet, 5 Refills, Maintenance, 11/19/19 13:56:00 EDT, Tablet, [facility] 168, cm, 11/19/19 13:14:00 EDT, Height, 89.2, kg, 06/19/19 1:03:00 EDT, Dry Weight Start Date: 11/19/19 Stop Date: 05/12/21 Status: Ordered levothyroxine 125 mcg (0.125 mg) oral tablet 1 tablet = 125 mcg, By Mouth, Daily, Bulgarian label, # 30 tablet, 5 Refills, Maintenance, 09/10/19 15:16:00 EST, Tablet, [facility] 168, cm, 09/10/19 13:44:00 EST, Height, 89.2, kg, 06/19/19 1:03:00 EDT, Dry Weight Start Date: 09/10/19 Status: Ordered Linzess 72 mcg oral capsule 0 Refills, Maintenance, 10/24/19 13:52:00 EST Start Date: 10/24/19 Status: Ordered lisinopril 30 mg oral tablet 1 tablet = 30 mg, By Mouth, Daily, dose increase, # 30 tablet, 11 Refills, Maintenance, 08/27/19 13:59:38 EST, [facility] 168, cm, 08/20/19 13:32:17 EST, Height, 89.2, kg, 06/19/19 1:03:24 EDT, Dry Weight Start Date: 08/27/19 Status: Ordered metFORMIN 500 mg oral tablet, extended release See Instructions, Take 1000 mg (2 tabs) in the morning and 500 mg (1 tab) in the evening; with food; Bulgarian label, # 90 tablet, 5 Refills, Maintenance, 12/25/19 14:51:00 EDT, [facility], 168, cm, 11/19/19 13:14:00 EDT, Height, 89.2, [...] 10:09:00 EDT, Route to Pharmacy Electronically, [facility], 168, cm, 11/19/19 13:14:00EDT, Height, 89.2, kg, [...] capsule = 40 mg, By Mouth, Daily, Bulgarian label please, # 60 capsule, 2 Refills, Maintenance, 12/06/19 13:25:00 EDT, EC Capsule, [facility], please discontinue amoxicillin/metronidazole/lansoprazole combination, 168, cm, 11/19/19 13:... Start Date: 12/06/19 Stop Date: 03/05/20 Status: Ordered omeprazole 40 mg oral enteric coated capsule 2 capsule = 80 mg, By Mouth, Daily, via [facility] GI, # 60 capsule, 0 Refills, Maintenance, 01/07/20 13:53:00 EDT, CR Capsule Start Date: 01/07/20 Status: Ordered ProAir HFA 90 mcg/inh inhalation aerosol with adapter 1, puffs, Inhalation, Every 4 hours, PRN, # 8.5 Gm, Refills 5, Tot. Refills 5, Maintenance, 12/20/19 10:09:00 EDT, Aerosol, Route to Pharmacy Electronically, [id number], [facility], 168, cm, 11/19/19 13:14:00... Start Date: 12/20/19 [...] 2 hours up to amaximum of 2; Bulgarian label please, # 9 tablet, 0 Refills, Maintenance, 09/10/19 15:12:00 EST, Tablet, [facility], 168, cm, 09/10/19 13... Start Date: 09/10/19 Status: Ordered Vitamin D3 1000 intl units oral capsule 1 capsule = 1,000 International_Units, By Mouth, Daily, Bulgarian label please; with food, # 30 capsule, 11 Refills, Maintenance, 12/08/19 10:59:00 EDT, Capsule, [facility] 168, cm, 11/19/19 13:14:00 EDT, [...] ) severe(Confirmed) 2017 Active Palpitations(Confirmed) Active *BHN/BHKRISTINE/Vasquez Guillen-[phone]/Health half-way, active care coordination(Confirmed) Active Seizure-like activity(Confirmed) Active Steatosis of liver(Confirmed) Active Vasovagal syncope(Confirmed) Active Social History Social History Type Response Smoking Status Never smoker entered on: 01/14/16 Sex Female
--- OUTSIDE RECORDS SUMMARY | 2023-07-02 18:49 | XMS_ITS | Continuity of Care Document ---
Author Name Unknown Organization [facility] Address [address] [place] [address]- Care Team Providers Care Multimedia Authoring Specialist Name Role Phone Lotus Lott Primary Care Physician Encounter [facility] Date(s): 06/16/22 - 10/14/[address] [address]- Attending Physician: Dottie Vazquez Admitting Physician: Dottie Vazquez Referring Physician: Not on Staff, Referring MD [...] 0 Refills, Maintenance, 12/20/19 10:09:00 EDT, Solution, [facility] 168, cm, 11/19/19 13:14:00 EDT, Height, [...] mg, By Mouth, Daily, please label in mauritanian., # 30 tablet, 11 Refills, Maintenance, 06/23/20 20:27:00 EDT, Tablet, [facility], 168, cm, 11/19/19 13:14:00 [...] PRN for dry skin, Print instructions in mauritanian to affected area, # 454 Gm, 0 Refills, Maintenance, 11/25/20 14:30:00 EDT, Cream, [facility], Partial fill upon patient request if the prescripti... Start Date: 11/25/20 Status: Ordered Claritin 10 mg oral tablet 10 mg, By Mouth, Daily, # 90 tablet, Refills 0, Tot. Refills 0, Maintenance, 06/23/20 9:15:00 EDT, Route to Pharmacy Electronically, [facility], 168, cm, 11/19/19 13:14:00 [...] 2 Refills, Maintenance, 11/13/20 9:14:00 EST, Gel[facility] [place] label, 168, cm, 11/13/20 8:37:00 EST,... Start Date: 11/13/20 Status: Ordered Freestyle Lancets See Instructions, # 100 each, Refills 11, Tot. Refills 11, Maintenance, use as directed for Type 2 Diabetes Mellitus Test 3 times/day Instructions in [place], 11/10/20 9:37:00 EST, Compound, 168, cm,11/19/19 13:14:00 EDT, Height, 89.2, kg, 06/19/19... Start Date: 11/10/20 Stop Date: 11/05/21 Status: Ordered Freestyle Lite Test Strips See Instructions, # 100 each, Refills 6, Tot. Refills 6, Maintenance, use as directed for Type 2 Diabetes Mellitus Test 3 times/day Instructions in [place], 11/10/20 9:41:00 EST, Duplicate rx-Original rx sent 06/23/20. Remaining refills sent., [place]... Start Date: 11/10/20 Stop Date: 06/08/21 Status: Ordered gabapentin 600 mg oral tablet 1 tablet = 600 mg, By Mouth, 3 times a day, [place] label, # 90 tablet, 5 Refills, Maintenance, 05/12/21 13:56:00 EDT, Tablet, [facility]., 168, cm, 11/19/19 13:14:00 EDT, Height, 89.2, kg, 06/19/19 1:03:00 EDT, Dry Weight Start Date: 05/12/21 Stop Date: 11/08/21 Status: Ordered Lac-Hydrin 12% lotion 1 application, Topically, 2 times a day, PRN Dry Skin, Apply and rub in well, # 400 Gm, 2 Refills, Maintenance, 11/13/20 9:08:00 EST, Lotion, [facility], [place] label, 1 application Topically 2 times [...] PRN Pain , Moderate, Print instructions in mauritanian wash hands thoroughly after application, # 50 Gm, 1 Refills, Maintenance, 11/25/20 14:45:00 EDT, Ointment, [facility], Partial fill upon patie... Start Date: 11/25/20 Status: Ordered lisinopril 10 mg oral tablet 10 mg, 1, tablet, By Mouth, Daily, # 30 tablet, Refills 0, Tot. Refills 0, Maintenance, 12/04/20 14:27:00 EDT, Route to Pharmacy Electronically, [facility], Partial fill upon patient request if the prescription is for a schedule II opioi... Start Date: 12/04/20 Status: Ordered Metamucil 3.4 gm/5.2 gm oral powder for reconstitution = 3.4 Gm, By Mouth, 3 times a day, PRN as needed for constipation, # 1,042 Gm, 0 Refills, Acute 04/20/23 13:53:00 EDT, 04/19/22 13:51:00 EDT, REC Powder, [id number], Partial fill upon patientrequest if the prescription is for a schedule II op... Start Date: 04/19/22 Stop Date: 04/20/23 Status: Ordered metFORMIN 500 mg oral tablet, extended release See Instructions, Take 1000 mg (2 tabs) in the morning and 500 mg (1 tab) in the evening; with food; [place] label, # 90 tablet, 5 Refills, Maintenance, 11/06/20 13:47:00 EST, [facility], 168, cm, 11/19/19 13:14:00 [...] (Eqv-GoLYTELY) oral powder for reconstitution See Instructions, [place] instructions Mix powder with water according to the product label. [facility] stating when to drink the prep fluid on the evening before the colonoswowpcy. 8 oz every 20 minutes, # 1 each, 0 Refills, Ma... Start Date: 04/19/22 Status: Ordered ProAir HFA 90 mcg/inh inhalation aerosol with adapter 1, puffs, Inhalation, Every 4 hours, PRN, # 8.5 Gm, Refills 5, Tot. Refills 5, Maintenance, 07/31/20 15:09:00 EST, Aerosol, Route to Pharmacy Electronically, [id number], [facility]., 168, cm, 11/19/19 13:14:00... Start Date: [...] Refills, Maintenance, 11/13/20 9:08:00 EST, ER Tablet, [facility], Partial fill upon patient request [...] Refills, Maintenance, 11/06/20 14:03:00 EST, ER Tablet, [facility], [place] label, 168, cm, 11/19/19 13:14:00 EDT, Height, 89.2, k... Start Date: 11/06/20 Status: Ordered Vitamin D3 1000 intl units oral capsule 1 capsule = 1,000 International_Units, By Mouth, Daily, [place] label please; with food, # 30 capsule, 5 Refills, Maintenance, 11/06/20 11:55:00 EST, Capsule, [facility] 168, cm, 11/19/19 13:14:00 EDT, Height, 89.2, kg, 06/19/19 1:03:... Start Date: 11/06/20 Stop Date: 05/05/21 Status: Ordered Problem List Condition Confirmation Course Effective Dates Status H ealth Status Informant Chronic pelvic pain Confirmed Active Chronic renal insufficiency Confirmed Active COVID-19 1 Confirmed 08/11/22 Active Diabetes Confirmed Active Fibromyalgia Confirmed Active GERD (gastroesophageal reflux disease) Confirmed Active Hypertension Confirmed Active Hypertriglyceridemia ; mild Confirmed Active Hypothyroid Confirmed Active Major depression, chronic Confirmed Active Obese class I Confirmed Active KIRAN (obstructive sleep apnea) severe Confirmed 2017 Active Palpitations Confirmed Active *BHN/BHCP/KRISTINE-Ernesto Denney-[phone]/H [facility], active care coordination Confirmed Active Seizure-like activity Confirmed Active Steatosis of liver Confirmed Active Vasovagal syncope Confirmed Active 1Problem added by Discern Expert Social History Social History Type Response Smoking Status Never smoker entered on: 01/14/16 Sex Female Patient Care team information Care Team Personnel Name: Lotus Lott Position: [facility] Outreach Member Role: PCP Address: Address: [address] [place] [id number]- Name: Germania Kelly RN Position: S RN Member Role: Primary Care Nurse Name: Shelly Yo RN Position: [facility] SN RN Member Role: Primary Care Nurse Name: Charis Schmitt RN Position: S RN Member Role: Primary Care Nurse Name: Flaca Roe RN Position: S RN Member Role: Primary Care Nurse Care Team Related Persons Name: MIS HARVEY Address: home [address] [place] [address] Name: ADRIAN HARVEY Address: [place] [address] Name: JACQUELINE HARVEY Address: home [address] [place] [id number]
--- OUTSIDE RECORDS SUMMARY | 2023-07-02 18:49 | XMS_ITS | Continuity of Care Document ---
Author Name Unknown Organization [facility] Address [address] [place] [address]- Care Team Providers Care Resource Conservation Manager Name Role Phone Vanessa Sharif DO Primary Care Physician En[place] [facility] [place] Date(s): 09/10/19 - 09/20/19 [facility] [address] [place] [address]- [facility] Attending Physician: Silvino Vance Admitting Physician: [...] mg, By Mouth, Daily, please label in yi. discontinue the atorvastatin, # 30 tablet, 6 [...] 2 times a day, please label in Peruvian, # 15 Gm, 0 Refills, Maintenance, 06/10/19 18:48:47 EDT, Cream, 1 application Topically 2 times a day,Instr:please label in Peruvian Start Date: 06/10/19 Status: Ordered Claritin 10 mg oral tablet 10 mg, By Mouth, Daily, # 90 tablet, Refills 4, Tot. Refills 4, Maintenance, 12/13/18 11:00:05 EDT,Route to Pharmacy Electronically, [id number], [facility] Start Date: 12/13/18 Stop Date: 03/07/20 Status: Ordered clonazePAM 0.5 mg oral tablet 1 tablet = 0.5 mg, By Mouth, Daily at bedtime, Dr. Dale, 0 Refills, Maintenance, 01/28/16 14:10:50 Start Date: 01/28/16 Status: Ordered clotrimazole 1% topical cream 1 application, Topically, 2 times a day, PRN Rash, Apply to top of right foot. Peruvian label please., # 12 Gm, 0 Refills, Maintenance, 09/10/19 15:09:00 EST, Cream, [facility] 1 application Topically 2 times a [...] Diabetes Mellitus Test 3 times/day Instructions in Peruvian, 08/09/19 10:57:52 EST, Compound Start Date: 08/09/19 Stop Date: 08/03/20 Status: Ordered Freestyle Lite Test Strips See Instructions, # 100 each, Refills 11, Tot. Refills 11, Maintenance, use as directed for Type 2 Diabetes Mellitus Test 3 times/day Instructions in Peruvian, 08/09/19 10:57:52 EST, Compound Start Date: 08/09/19 Stop Date: 08/03/20 Status: Ordered gabapentin 600 mg oral tablet 1 tablet = 600 mg, By Mouth, 3 times a day, [place]uvian label, # 270 tablet, 5 Refills, Maintenance, 12/13/18 10:59:58 EDT, Tablet Start Date: 12/13/18 Stop Date: 06/05/20 Status: Ordered ibuprofen 400 mg oral tablet 400 mg, 1, tablet, By Mouth, Every 8 hours, # 30 tablet, Refills 1, Tot. Refills 1, Maintenance, 08/20/19 13:50:16 EST, Route to Pharmacy Electronically, [id number], [facility], 168, cm, 08/20/19 13:32:17 EST,... Start Date: 08/20/19 Status: Ordered levothyroxine 125 mcg (0.125 mg) oral tablet 1 tablet = 125 mcg, By Mouth, Daily, [place]uvian label, # 30 tablet, 5 Refills, Maintenance, 09/10/19 15:16:00 EST, Tablet, [facility], 168, cm, 09/10/19 13:44:00 EST, Height, 89.2, kg, 06/19/19 1:03:00 EDT, Dry Weight Start Date: 09/10/19 Status: Ordered lisinopril 30 mg oral tablet 1 tablet = 30 mg, By Mouth, Daily, dose increase, # 30 tablet, 11 Refills, Maintenance, 08/27/19 13:59:38 EST, [facility], 168, cm, 08/20/19 13:32:17 EST, Height, 89.2, kg, 06/19/19 1:03:24 EDT, Dry Weight Start Date: 08/27/19 Status: Ordered metFORMIN 500 mg oral tablet, extended release See Instructions, ULYSSES 2 TABLETAS POR LA BOCA CADA MANUEL, # 60 tablet, 5 Refills, Maintenance, [facility], 168, cm, 09/10/19 13:44:00 EST, Height, 89.2, [...] 07/24/19 9:39:34 EST, Route to Pharmacy Electronically, [id number], [facility] Start Date: 07/24/19 Stop Date: 01/20/20 [...] 10:59:41 EDT, Aerosol, Route to Pharmacy Electronically, [id number], [facility] Start Date: 12/13/18 Status: Ordered propranolol 40 mg oral tablet 40 mg, 1, tablet, By Mouth, Daily, [place]uvian label please, # 30 tablet, Refills 0, Tot. Refills 0, Maintenance, 09/10/19 15:10:00 EST, Route to Pharmacy Electronically, [facility], 168,cm, 09/10/19 13:44:00 EST, Height, 89.2, kg, 06/19/... Start Date: 09/10/19 Status: Ordered QUEtiapine 50 mg oral tablet [...] 2 hours up to amaximum of 2; Peruvian label please, # 9 tablet, 0 Refills, Maintenance, 09/10/19 15:12:00 EST, Tablet, [facility], 168, cm, 09/10/19 13... Start Date: 09/10/19 [...] Hypertension(Confirmed) Active Hypertriglyceridemia; mild(Confirmed) Active Hypothyroid(Confirmed) Active KIRAN (obstructive sleep apnea)(Confirmed) Active Palpitations(Confirmed) Active *BHN/BHKRISTINE/Vasquez Guillen-[phone]/Health residential, active care coordination(Confirmed) Active Seizure-like activity(Confirmed) Active Steatosis of liver(Confirmed) Active Vasovagal syncope(Confirmed) Active Social History Social History Type Response Smoking Status Never smoker entered on: 01/14/16 Sex Female
--- OUTSIDE RECORDS SUMMARY | 2023-07-02 18:49 | XMS_ITS | Continuity of Care Document ---
Author Name Unknown Organization [facility] Address [address] [place] [id number]- Care Team Providers Care Guardian Family Member Name Role Phone Sheldon SORIA, Layla Elliott Primary Care Physician [place] [facility] [place] Date(s): 12/19/22 - 02/08/[address] [address]- Attending Physician: Lotus Lott Admitting Physician: Lotus Lott Referring Physician: Lotus Lott Allergies, Adverse Reactions, Alerts Substance Reaction Severity [...] 0 Refills, Maintenance, 12/20/19 10:09:00 EDT, Solution, [facility], 168, cm, 11/19/19 13:14:00 EDT, Height, 89.2, kg, 06/19/19 1:03:00 EDT, Dry Weight Start Date: 12/20/19 Status: Ordered albuterol CFC free 90 mcg/inh inhalation aerosol 2, puffs, Inhalation, 4 times a day, PRN, # 18 Gm, Refills 1, Tot. Refills 1, Maintenance, 02/08/2314:39:00 EDT, Aerosol, Route to Pharmacy Electronically, [id number], [facility], 163, cm, 02/08/23 13:53:00 E... Start [...] mg, By Mouth, Daily, please label in nigerien., # 30 tablet, 11 Refills, Maintenance, 06/23/20 [...] Diabetes Mellitus Test 3 times/day Instructions in Urdu, 11/10/20 9:37:00 EST, Compound, 168, cm,11/19/19 13:14:00 EDT, Height, 89.2, kg, 06/19/19... Start Date: 11/10/20 Stop Date: 11/05/21 Status: Ordered Freestyle Lite Test Strips See Instructions, # 100 each, Refills 6, Tot. Refills 6, Maintenance, use as directed for Type 2 Diabetes Mellitus Test 3 times/day Instructions in Urdu, 11/10/20 9:41:00 EST, Duplicate rx-Original rx sent 06/23/20. Remaining refills sent., [place]... Start Date: 11/10/20 Stop Date: 06/08/21 Status: Ordered gabapentin 300 mg oral capsule TAKE 1 CAPSULE BY MOUTH THREE TIMES DAILY Start Date: 02/02/23 Status: Ordered levothyroxine 125 mcg (0.125 mg) oral tablet 1 tablet = 125 mcg, By Mouth, Daily, # 90 tablet, 1 Refills, Maintenance, 02/03/23 6:24:00 EDT, Tablet, [facility], Partial fill upon patient request if the prescription is for a schedule II opioid drug., 163, cm, 01/13/23 15:11:00 EDT... Start Date: 02/03/23 Stop Date: 08/02/23 Status: Ordered lisinopril 20 mg oral tablet 20 mg, 1, tablet, By Mouth, Daily, # 90 tablet, Refills 1, Tot. Refills 1, Maintenance, 01/31/23 12:02:00 EDT, Route to Pharmacy Electronically, [facility], Partial fill upon patient request if the prescription is for a schedule II opi... Start Date: 01/31/23 Stop Date: 07/30/23 Status: Ordered LORazepam 0.5 mg oral tablet TAKE 1 TABLET BY MOUTH TWICE A DAY NEEDED FOR ANXIETY- Start Date: 02/02/23 Status: Ordered metFORMIN 500 mg oral tablet, extended release See Instructions, LABEL IN [place] First three days take 1 tablet daily [...] 1 Refills, Maintenance, 01/31/23 12:04:00 EDT, Suspension, [facility], Partial fill upon patient [...] Confirmed 2017 Active Palpitations Confirmed Active *BHN/BHCP/Patricia Denney-[phone]/H [facility] custodial, active care coordination Confirmed Active Colonic polyp [...] Shelly Yo RN Position: [facility] SN RN Member Role: Primary Care Nurse Name: Layla Chung MD Position: [facility] Physician - Primary Care Member Role: PCP Address: Address: [address] [place] [id number] Name: Charis Schmitt RN Position: S RN Member Role: Primary Care Nurse Name: Flaca Roe RN Position: [facility] RN Member Role: Primary Care Nurse Care Team Related Persons Name: MIS HARVEY Address: home [address] [place] [address] Name: ADRIAN HARVEY Address: [place] [address] Name: JACQUELINE HARVEY Address: home [address] [address]
[2023-07-02 19:39] VITALS: BP 129/73; PULSE 84; PULSE 85; RESP 14; TEMP 36.8; O2SAT 92
[2023-07-02 21:47] LABS: Troponin-I High Sensitivity < 2.7 ng/L (<3.5-17.0)
[2023-07-02 22:38] VITALS: BP 114/68; PULSE 68; RESP 14; O2SAT 95
== END 2023-07-02 22:42 | disposition still patient (30) ==
PROVIDERS: Physician Assistant; Registered Nurse Emergency; Emergency Provider Internal Medicine
DX: R07.89 Other chest pain (principal); R20.0 Anesthesia of skin; R42 Dizziness and giddiness; Z79.899 Other long term (current) drug therapy
CPT/HCPCS: 36415; 70450; 71046; 80053; 84484; 85025; 85610; 93005; 99284; 99285